=== PATIENT | male | born 1965 | race Caucasian/White ===

== ENCOUNTER 2019-08-13 14:19 | Outpatient (CLI) | payer BC, SELFPAY ==
--- NOTE | 2019-08-13 14:15 | DI.RAD_ITS ---
EXAM: XR KNEE RT 3V AP,LAT,DELMI CLINICAL HISTORY: assess knee joint, knee pain nina chronic, M25.569, G89.29, M25.561 TECHNIQUE: COMPARISON: No exams were available for comparison FINDINGS: Three views were obtained. There is slight narrowing of the medial tibiofemoral cartilaginous joint space. Mild hypertrophic spurring noted involving all 3 joints of the knee. 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
--- NOTE | 2019-08-13 14:19 | DI.RAD_ITS ---
EXAM: XR KNEE LT 3V AP,LAT,DELMI CLINICAL HISTORY: assess knee; joint pain chronic nina, M25.569, G89.29, M25.562 TECHNIQUE: COMPARISON: XR KNEE RT 3V AP,LAT,DELMI from 08/13/2019 FINDINGS: Three views were obtained. There may be slight narrowing of the medial tibiofemoral cartilaginous mina int space. Minimal marginal osteophyte formation noted at the inferior patella. No other bony abnor mality seen. IMPRESSION: Minimal degenerative changes as described above.
== END 2019-08-13 14:39 ==
PROVIDERS: PCP Nurse Practitioner Adult Health; Visit Provider Nurse Practitioner Adult Health
DX: M25.561 Pain in right knee (principal); M25.562 Pain in left knee; M17.0 Bilateral primary osteoarthritis of knee; G89.29 Other chronic pain
CPT/HCPCS: 73562

== ENCOUNTER 2019-09-13 13:42 | Outpatient (CLI) | payer BC, SELFPAY ==
--- NOTE | 2019-09-13 09:00 | DI.RAD_ITS ---
EXAM: XR KNEES MERCHANT ONLY INDICATION: eval R knee, patella maltracking. COMPARISON: XR KNEE LT 3V AP,LAT,DELMI from 08/13/2019 TECHNIQUE: 2D digital imaging was performed. FINDINGS: The joint spaces appear well maintained. There is a slight lateral tilt of the left patella. Soft t issues are unremarkable.
== END 2019-09-13 14:02 ==
PROVIDERS: PCP Nurse Practitioner Adult Health; Visit Provider Student in an Organized Health Care Education/Training Program
DX: M25.561 Pain in right knee (principal); M22.2X1 Patellofemoral disorders, right knee; M25.361 Other instability, right knee
CPT/HCPCS: 73565

== ENCOUNTER 2020-02-21 10:23 | Emergency (ER) | payer BC, SELFPAY ==
[2020-02-21] VITALS (39 sets, daily range): BP systolic 105–173; BP diastolic 64–98; PULSE 52–80; RESP 12–22; TEMP 36.8–37; O2SAT 95–98
--- NOTE | 2020-02-21 10:15 | RT.EKG_ITS ---
APPROVED REPORT Exam: Resting ECG Patient Location: E HR:65 bpm ECG Measurements Heart Rate 65 AXIS LA 151 P 33 QRSd 81 QRS -4 QT 397 T 40 QTc 414 <Conclusion> Sinus rhythm...normal P axis, V-rate 65, no st elev
--- NOTE | 2020-02-21 10:43 | ED.GENADUL_ITS ---
Discharge Plan Disposition Patient Disposition: HOME Condition: Improving Discharge Details Chief Complaint: Chest Pain Clinical Impression: Chest pain Primary Care Provider: Tammy Chery ED Provider: Barrera Medrano Home Meds and New Rx's Prescriptions: Continued albuterol sulfate [Ventolin HFA] 90 mcg/actuation HFA aerosol inhaler 2 puff IH Q4H PRN (Reason: shortness of breath or wheezing) Qty: 8.5 RF: 1 sertraline 50 mg tablet 50 mg PO DAILY Qty: 90 RF: 3 metoprolol succinate 100 MG tablet extended release 24 hr 100 mg PO DAILY Qty: 90 RF: 3 lisinopril 10 MG tablet 10 mg PO DAILY Qty: 30 RF: 1 aspirin,buffd-calcium carb-mag 325 MG tablet 1 tab PO DAILY RF: 0 nitroglycerin [Nitrostat] 0.4 MG tablet, sublingual 1 tab Sublingual DIRECTED PRNRF: 0 ezetimibe [Zetia] 10 MG tablet 10 mg PO DAILY RF: 0 rosuvastatin [Crestor] 40 MG tablet 40 mg PO HS Qty: 90 RF: 3 Discharge Instructions Instructions: Chest Pain (ED) Additional Instructions: Home to rest today. Continue your regularly prescribed medications. Return if you have persistent chest pain, chest pain that does not resolve with a single nitroglycerin, or any other acute concern. I have ordered you an outpatient stress test that will be scheduled. Stand Alone Forms: Work Release Medical Decision Making 54-year-old male with known coronary artery disease status post percutaneous intervention to the LAD in 2006. He was noted at that time to have residual distal LAD disease not amenable to intervention. He states over the weekend he developed short minutes long episodes of substernal chest pressure that were associated with diaphoresis. They were not provoked and he states they seem to dissipate on their own. States he feels general malaise and weakness but no other positives on review of systems. Most recent functional study is a negative exercise stress echo in November 2018. Patient IV access established, placed on a telesales specialist, screening laboratories including troponin and BNP obtained. Chest x-ray unremarkable. Labs reassuring, patient observed in a telesales specialist repeat troponin obtained at 4 hours and negative. He remained symptom-free throughout his stay in the ER today. Given the history of having residual distal LAD disease, I am concerned for flow-limiting coronary disease and will order an outpatient stress test. Patient understands homecare as well as indications to return for reevaluation. HPI General Mode of arrival: ambulatory . Date/Time Provider Initiated Documentation: 02/21/20 10:25 . Limitations to Documentation: no limitations . Information obtained by: patient . History of Present Illness 54 year old M presents to the emergency department with the chief complaint of Intermittent chest pressure x4 this weekend, described as moderate, Quality is described as dull, and is localized to the chest. Patient reports no radiation. Patient started experiencing this minute(s) and it has been now resolved. No relieving factors improve symptom(s), No exacerbating factors reported . Patient notes diaphoresis; denies shortness of breath and syncope. Patient did receive the following treatments prior to arrival, none Related Data Home Medications Medication Instructions Recorded Confirmed aspirin,buffd-calcium carb-mag 1 tab PO DAILY 08/29/15 11/24/19 ezetimibe [Zetia] 10 mg PO DAILY 08/29/15 11/24/19 nitroglycerin [Nitrostat] 1 tab SUBLINGUAL DIRECTED PRN 08/29/15 11/24/19 rosuvastatin [Crestor] 40 mg PO HS #90 08/29/15 11/24/19 metoprolol succinate 100 mg PO DAILY #90 tab-cap 10/02/16 11/24/19 lisinopril 10 mg PO DAILY #30 tab-cap 02/16/18 11/24/19 albuterol sulfate 90 mcg/actuation 2 puff IH Q4H PRN #8.5 gm 08/19/19 11/24/19 aerosol inhaler sertraline 50 mg tablet 50 mg PO DAILY #90 tab 11/24/19 11/24/19 Previous Rx's Medication Instructions Recorded lisinopril 10 mg PO DAILY #30 tab-cap 02/16/18 albuterol sulfate 90 mcg/actuation 2 puff IH Q4H PRN #8.5 gm 08/19/19 aerosol inhaler sertraline 50 mg tablet 50 mg PO DAILY #90 tab 11/24/19 Allergies Allergy/AdvReac Type Severity Reaction Status Date / Time clopidogrel bisulfate AdvReac Intermediate Hives Verified 08/19/19 11:09 [From Plavix] General Stated Complaint: Chest Pain WILL: 2 Review of Systems Narrative: Took his morning medications. Denies edema. No weight gain. No cough or fever. 6 systems reviewed and otherwise negative [facility] Medical History Adenomatous polyp of ascending colon (Chronic 12/16/16) sessile serrated CAD (coronary artery disease) (Chronic 09/27/16) Depression (Chronic) History of alcohol abuse (Chronic 09/27/16) History of tobacco abuse (Chronic 10/02/16) Hyperlipidemia, unspecified (Chronic 09/27/16) SC (myocardial infarction) (07/24/07) Age 41 PTSD (post-traumatic stress disorder) (Chronic) [email or web address] [facility] 01/2019 Sleeping difficulty (Acute) Snoring (Acute) Family History Mother Essential hypertension CAD (coronary artery disease) Myocardial infarction x2 Stroke Father , Colon CA at age 62. Diabetes Type II CAD (coronary artery disease) Neoplasm Colon Sister Stroke Sister MS (multiple sclerosis) Sister Essential hypertension Hyperlipidemia TIA (transient ischemic attack) Social History Smoking/Tobacco Use Status: Former Tobacco Use Quit Date: 07/28/06 Pack-years: 30 Tobacco: How many years used: 20 Quit status: not considering quitting Alcohol Intake: current Alcohol Intake frequency: a few times a week Drug use: Never Household members: none Housing: house Current gender identity: male Do you feel safe in your relationship?: Yes Exam Narrative Exam Narrative: GEN: awake, alert, oriented 3. Pleasant, well groomed, interactive. HEAD: Normocephalic, atraumatic ENT: Mucous membranes moist, oropharynx unremarkable, External ear exam unremarkable EYES: PERRL, EOMI NECK: Full ROM, no RANGEL, no menigismus CHEST/RESP: Nontender, clear to auscultation bilateral, no wheeze/rhonchi/rales CARDIOVASCULAR: RRR, no murmur, rub fadi. 2+ Rad pulse bilateral ABDOMEN: Soft, nontender, no mass. +Bowel sounds EXT: Full ROM, no edema, no rash Neuro: Grossly normal neurologic exam, conversant, interactive. Psych: Speech fluent, thoughts congruent, affect normal Course Vital Signs Vital signs: Vital Signs Temperature 37 C 02/21/20 10:27 Pulse 67 02/21/20 10:27 Respiratory Rate 13 02/21/20 10:27 Blood Pressure 173/98 H 02/21/20 10:27 Pulse Oximetry 98 02/21/20 10:27 Temperature 37 C 02/21/20 10:27 Temperature Source Temporal Artery Scan 02/21/20 10:27 Pulse 67 02/21/20 10:27 Respiratory Rate 13 02/21/20 10:27 Blood Pressure 173/98 H 02/21/20 10:27 Blood Pressure Position Supine 02/21/20 10:27 Pulse Oximetry 98 02/21/20 10:27 Oxygen Delivery Method Room Air 02/21/20 10:27 Oxygen Flow Rate 0 02/21/20 10:27
[2020-02-21 10:54] LABS: Abs Immature Grans 0.04 k/cumm (0.0-0.09); Absolute Lymphocyte Count 3.73 k/cumm (1.2-3.4); Absolute Monocyte Count 1.08 k/cumm (0.11-0.7); Basophils % 0.1; Eosinophils % 4.3; HCT 46.1 % (40.0-50.0); HGB 15.7 g/dL (13.5-17.5); Immature Grans % 0.3 %; Lymphocytes % 27.9; Mean Corp. HGB Concentration 34.1 g/dL (32.0-36.0); Mean Corpuscular Hemoglobin 30.8 pg (27.0-33.0); Mean Corpuscular Volume 90.4 fL (80-95); Mean Platelet Volume 10.2 fL (8.0-11.0); Monocytes % 8.1; Neutrophils % 59.3; Platelet Count 394 x1000/uL (130-400); RBC Distribution Width 13.6 % (11.8-14.1); White Blood Cell Count 13.37 k/cumm (4.4-10.8)
[2020-02-21 10:55] LABS: Absolute Basophil Count 0.01 k/cumm (0.0-0.2); Absolute Eosinophil Count 0.57 k/cumm (0.0-0.7); Absolute Neutrophil Count 7.93 k/cumm (1.2-6.7)
--- NOTE | 2020-02-21 11:06 | DI.RAD_ITS ---
EXAM: XR CHEST 2V PA LATERAL CLINICAL HISTORY: chest pressure TECHNIQUE: 2D digital imaging was performed. COMPARISON: No exams were available for comparison FINDINGS: MEDIASTINUM: Normal. HEART: Normal. PULMONARY VASCULATURE: Normal. LUNGS: Clear. PLEURAL SPACE: No pleural effusion or pneumothorax. BONE:Normal. OTHER FINDINGS:Normal. IMPRESSION: No acute pulmonary findings. DATA REPOSITORY: RADIATION DOSE DELIVERED:
[2020-02-21 11:17] LABS: ALT 46 U/L (16-63); AST 21 U/L (15-37); Albumin 3.9 g/dL (3.4-5.0); Alkaline Phosphatase 66 U/L (46-116); Anion Gap 10.7 mmol/L (3-11); BUN 20 mg/dL (7-18); Bilirubin, Total 0.6 mg/dL (0.2-1.0); CO2 26.3 mmol/L (21.0-32.0); CREATININE 1.11 mg/dL (0.70-1.30); Chloride 99 mmol/L (98-107); Glucose 117 mg/dL (74-106); Magnesium 1.9 mg/dL (1.8-2.4); NT-proBNP 186 pg/mL (<300); Potassium 4.1 mmol/L (3.5-5.1); Sodium 136 mmol/L (136-145); Total Protein 7.7 g/dL (6.4-8.2)
[2020-02-21 11:22] LABS: Troponin I < 0.05 ng/mL (<0.06)
--- NOTE | 2020-02-21 13:30 | RT.EKG_ITS ---
APPROVED REPORT Exam: Resting ECG Patient Location: E HR:57 bpm ECG Measurements Heart Rate 57 AXIS SC 148 P 33 QRSd 81 QRS 2 QT 423 T 43 QTc 412 <Conclusion> Sinus bradycardia. rate 57, no st elevation
[2020-02-21 14:08] LABS: Troponin I < 0.05 ng/mL (<0.06)
--- NOTE | 2020-02-21 14:38 | NUR.NOTE ---
Nursing Note: Referral fax to DI and CM for Stress Test
== END 2020-02-21 14:41 | disposition home or self-care (01) ==
PROVIDERS: Emergency Provider Emergency Medicine; PCP Nurse Practitioner Adult Health
DX: R07.89 Other chest pain (principal); R53.81 Other malaise; I25.10 Atherosclerotic heart disease of native coronary artery without angina pectoris; Z87.891 Personal history of nicotine dependence
CPT/HCPCS: 36415; 80053; 93005; 99285; 71046; 83735; 83880; 84484; 85025; 93010

== ENCOUNTER 2020-02-24 00:40 | Outpatient (CLI) | payer BC, SELFPAY ==
--- NOTE | 2020-02-24 06:30 | DI.NM_ITS ---
APPROVED REPORT Exam: Pharmacologic Patient Location: Out-Patient Room/Bed: Stress Nurse: Tram Corey RN BMI: 32.92 Baseline Rhythm: Sinus Rhythm Indications: Chest Pain, CAD s/p MT, CAD s/p PCI Medical History Medical History: CAD s/p MT, CAD s/p stent, HTN, Hyperlipidemia, Obesity Cardiac Medications: Aspirin, Lisinopril, Metoprolol, Rosuvastatin/ Crestor, zetia, Allergies: Plavix Cardiac Risk Factors: HTN, Hyperlipidemia, FHX of CAD, CVD Previous Cardiac Procedures: PCI Pretest Chest Pain Characteristics: No chest pain Exercise History: Indeterminate Lung Sounds: Clear to auscultation Heart Sounds: Regular Stress Test Details Test: Pharmacologic stress was paired with low level exercise. Reason for pharmacologic stress test: physical limitation. Nuclear Acquisition: Rest Tc-99m/Stress Tc-99m 1 day Rest Isotope: Tc-99m Sestamibi. Dose: 12 Date: 02/24/2020 Injection Time: 1200 Stress Isotope: Tc-99m Sestamibi. Dose: 38.6 Date: 02/24/2020 Injection Time: 1335 HR Resting HR Supine: 78 bpm Max Heart Rate (APMHR): 165 bpm Resting HR Standin bpm Target HR (85% APMHR): 140 bpm Max HR Achieved: 128 bpm % of APMHR: 77 Recovery HR: 109 bpm HR response to stress: Normal HR response to stress BP Resting BP Supine: 160/104 mmHg Resting BP Standin/104 mmHg Max BP: 178/11 mmHg Recovery BP: 146/100 mmHg BP response to stress: Abnormal hypotensive response to stress. ECG Resting ECG: Sinus Rhythm, Ectopy: pvc Stress ECG: Sinus Tachycardia Maximum ST Deviation: -1.7 mm Arrhythmia: VPC's Recovery ECG: Sinus Tachycardia Recovery Arrhythmia: None Clinical Reason for Termination: ECG unreadable Exercise duration: 1 min10 sec Highest Stage Reached: Stage 1: 1.7 mph at 10% grade. Exercise capacity: 2.74 METs Stress ECG Conclusion 1. Resting electrocardiogram was normal other than sinus tachycardia 2. The patient received pharmacologic stress using regadenoson 3. Peak heart rate achieved was 77% of predicted 4. Blunted heart rate and blood pressure response to pharmacologic stress 5. Electrocardiographically the test was nondiagnostic due to inadequate heart rate achieved Critical Notification Critical Value: No MPI Conclusion No definite evidence of myocardial ischemia or prior infarction Ejection fraction 68% Radiologist Interpretation limited technical quality scan, ischemia not excluded, possible transient anterior wall defect, small Radiologist Interpretation by: Barrera Rhodes MD Interpretation Date/Time: 02/28/2020 14:58:58
[2020-02-24] MEDS: Regadenoson 0.4 MG/5 ML SYR IVP (14:07)
== END 2020-02-24 01:00 ==
PROVIDERS: PCP Nurse Practitioner Adult Health; Visit Provider Nurse Practitioner Adult Health
DX: R07.9 Chest pain, unspecified (principal); I25.2 Old myocardial infarction; I25.10 Atherosclerotic heart disease of native coronary artery without angina pectoris; Z95.5 Presence of coronary angioplasty implant and graft; I10 Essential (primary) hypertension; E78.5 Hyperlipidemia, unspecified; E66.9 Obesity, unspecified; Z82.49 Family history of ischemic heart disease and other diseases of the circulatory system; R94.39 Abnormal result of other cardiovascular function study
CPT/HCPCS: 78452; 93017; J2785

== ENCOUNTER 2020-03-08 09:15 | Outpatient (REF) | payer BC, SELFPAY ==
[2020-03-08 20:56] LABS: Hemoglobin A1C 5.7 % (3.8-5.6)
[2020-03-08 21:15] LABS: ALT 36 U/L (16-63); AST 17 U/L (15-37); Albumin 3.8 g/dL (3.4-5.0); Alkaline Phosphatase 89 U/L (46-116); Anion Gap 12.4 mmol/L (3-11); BUN 26 mg/dL (7-18); Bilirubin, Total 0.2 mg/dL (0.2-1.0); CO2 21.6 mmol/L (21.0-32.0); CREATININE 1.09 mg/dL (0.70-1.30); Calcium 9.1 mg/dL (8.5-10.1); Calculated LDL 226 mg/dL (<100); Chloride 103 mmol/L (98-107); Cholesterol 314 mg/dL (<200); Glucose 121 mg/dL (74-106); HDL Cholesterol 37 mg/dL (40-60); Potassium 4.5 mmol/L (3.5-5.1); Sodium 137 mmol/L (136-145); Total Protein 7.2 g/dL (6.4-8.2); Triglyceride 259 mg/dL (<150); Vitamin B12 413 pg/mL (193-986)
== END 2020-03-08 09:35 ==
LOC: LBN 09:15
PROVIDERS: PCP Nurse Practitioner Adult Health; Visit Provider Nurse Practitioner Adult Health
DX: E78.5 Hyperlipidemia, unspecified (principal); F10.11 Alcohol abuse, in remission; I25.10 Atherosclerotic heart disease of native coronary artery without angina pectoris; R20.2 Paresthesia of skin; Z87.891 Personal history of nicotine dependence
CPT/HCPCS: 80053; 80061; 82607; 83036

== ENCOUNTER 2020-05-19 06:54 | Day surgery (SDC) | payer BC, SELFPAY ==
[2020-05-19 07:03] VITALS: BP 138/93; PULSE 79; RESP 16; TEMP 36; O2SAT 98
[2020-05-19] MEDS: Lactated Ringers 1,000 ML 80 ML IV (07:27)
--- NOTE | 2020-05-19 08:12 | W.PM.DSUDISC ---
Discharge Plan Disposition Patient Disposition: HOME Condition: Good Discharge Details Reason For Visit: Colonoscopy Attending Provider: Chelsi Lockhart Primary Care Provider: Tammy Chery Home Meds and New Rx's Prescriptions: Continued albuterol sulfate [Ventolin HFA] 90 mcg/actuation HFA aerosol inhaler 2 puff IH Q4H PRN (Reason: shortness of breath or wheezing) Qty: 8.5 RF: 1 sertraline 50 mg tablet 50 mg PO DAILY Qty: 90 RF: 3 metoprolol succinate 100 MG tablet extended release 24 hr 100 mg PO DAILY Qty: 90 RF: 3 lisinopril 10 MG tablet 10 mg PO DAILY Qty: 30 RF: 1 aspirin,buffd-calcium carb-mag 325 MG tablet 1 tab PO DAILY RF: 0 nitroglycerin [Nitrostat] 0.4 MG tablet, sublingual 1 tab Sublingual DIRECTED PRNRF: 0 ezetimibe [Zetia] 10 MG tablet 10 mg PO DAILY RF: 0 rosuvastatin [Crestor] 40 MG tablet 40 mg PO HS Qty: 90 RF: 3 Discharge Instructions Additional Instructions: Findings: A large polyp was removed from the right colon. My office will contact you with biopsy results. Follow up: Due to the size of the polyp, plan for a colonoscopy in 6 months. Please call if you develop: fevers >101.5 Nausea or Vomiting Abdominal pain that is not transient Bleeding DAY SURGERY UNIT POST COLONOSCOPY INSTRUCTIONS 1. Because there will be medication in your system for the next 24 hours, you may feel a little sleepy. Your coordination will be affected. Therefore: a. Do not drive or operate dangerous equipment for 24 hours. b. Do not drink alcohol beverages for 24 hours (not even beer). c. Plan to go home and rest for the day. 2. Generally there are no restrictions on your activity after a day or so has gone by, but you may feel a bit fatigued for a few days. 3 After you arrive home you may have a light meal and return to a normal diet as you can tolerate it without feeling sick to your stomach. 4. After surgery, you may feel pain or discomfort. This should be only transient, but if it persists please contact your doctor. 5. If there are any questions regarding the findings of your procedure, please feel free to contact your doctor. 6. If you are unable to contact your doctor with a problem, contact the hospital at [phone]. 9. Continue all your regular medications unless directed otherwise. I understand the above instructions and have no questions. Signature of Patient or Responsible Adult Escort Date/Time Name of Responsible Adult Escort Signature of Nurse Date/Time Activity:: Activity as Tolerated Diet:: As Tolerated Discharge Orders Discharge Orders: Discharge Order (Routine); Ordered 05/19/20 Ordered By: Chelsi Lockhart DS: Diagnosis Discharge Diagnosis (1) Colon polyps: Status: Acute (2) Diverticulosis: Status: Acute
--- NOTE | 2020-05-19 08:13 | W.COLOREPORT ---
Date of service: 05/19/20 Time of Service: 09:41 Colonoscopy Report Date of procedure: 05/19/20 Pre-op diagnosis general: History of polyps, FH colon cancer Post-op diagnosis procedure note: other (Cecal polyp, descending colon polyp, diverticulosis) Procedure: Colonoscopy with snare polypectomy Surgeon: Chelsi Lockhart Anesthesia proc note operative: MAC Indications: This 54 year old man presents for colonoscopy. He had a tubular adenoma removed in 2017. His father was treated for colon cancer. Procedure Description: The patient was placed in the left [place] position. Propofol was titrated to sedation. Digital rectal examination revealed no abnormalities. The scope was advanced to the cecum with some pressure required. The ileocecal valve and appendiceal orifice were clearly identified. The prep was good. Across from the ileocecal valve a large polyp was located behind a fold. This was difficult to reach due the colon falling off the scope. I was able to snare two large pieces and retrieved one for pathology. It is not clear the polyp was completely removed. The scope was slowly withdrawn over the course of greater than 6 minutes with no abnormalities seen in the ascending or transverse colon. A less than 1cm polyp was removed from the descending colon with the snare. The sigmoid colon showed mild diverticulosis. The rectum was normal including on retroflexed view. The patient tolerated the procedure well and was stable to recovery. He will need a colonoscopy in 6 months to re-evaluate the polyp in the cecal region.
--- NOTE | 2020-05-19 08:40 | BOWEL_PTH ---
PATIENT: Олег Garcia LOC: [facility] U#:[id number] AGE/SX: 54/M ROOM: RE05/19/[address]: Chelsi Lockhart MD : 1965 BED: DIS: 05/19/2020 SPEC #: [id number] RECD: 05/19/20 12:26 STATUS: NIKKIE REQ #: [id number] MISSAEL: 05/19/20 08:[address]: Chelsi Lockhart DEPT: Surgical Specimen RECD BY: Melissa Ye ENTERED: 05/19/20 12:27 SP TYPE: Bowel OTHR DR: Tammy Chery APRN Tissues: 1 - BIOPSY BOWEL 2 - BIOPSY BOWEL Procedures: GROSS AND MICRO LEVEL 4 Comments: [id number]
[2020-05-19 09:56] VITALS: BP 149/71; PULSE 60; RESP 18; TEMP 36.1; O2SAT 98
== END 2020-05-19 10:25 | disposition home or self-care (01) ==
PROVIDERS: PCP Nurse Practitioner Adult Health; Visit Provider Surgery
PROC: 0DJD8ZZ Inspection of Lower Intestinal Tract, Via Natural or Artificial Opening Endoscopic (ICD-10-PCS; CPT 45378; principal; 2020-05-19 08:15)
DX: Z12.11 Encounter for screening for malignant neoplasm of colon (principal); D12.0 Benign neoplasm of cecum; D12.4 Benign neoplasm of descending colon; Z86.010 Personal history of colon polyps; K57.30 Diverticulosis of large intestine without perforation or abscess without bleeding; Z80.0 Family history of malignant neoplasm of digestive organs
CPT/HCPCS: 45385; 88305

== ENCOUNTER 2020-06-26 02:32 | Outpatient (CLI) | payer BC, SELFPAY ==
[2020-06-27 16:50] LABS: COVID-19 RT-PCR UVMMC Result Negative (Negative)
== END 2020-06-26 02:52 ==
PROVIDERS: PCP Nurse Practitioner Adult Health; Visit Provider Nurse Practitioner
DX: Z11.59 Encounter for screening for other viral diseases (principal); Z01.818 Encounter for other preprocedural examination
CPT/HCPCS: U0003

== ENCOUNTER 2020-12-29 18:01 | Outpatient (REF) | payer BC, SELFPAY ==
[2020-12-31 11:21] LABS: COVID-19 RT-PCR UVMMC Result Negative (Negative)
== END 2020-12-29 18:02 | disposition home or self-care (01) ==
LOC: LBN 18:01
PROVIDERS: PCP Nurse Practitioner Adult Health; Visit Provider Nurse Practitioner Adult Health
DX: Z20.822 Contact with and (suspected) exposure to COVID-19 (principal); R06.02 Shortness of breath
CPT/HCPCS: U0003

== ENCOUNTER 2021-01-01 10:43 | Outpatient (CLI) | payer BC, SELFPAY ==
--- NOTE | 2021-01-01 10:00 | DI.RAD_ITS ---
Exam(s) XR CHEST 2V PA LATERAL EXAM: XR CHEST 2V PA LATERAL CLINICAL HISTORY: SOBOE, CAD, H/O TOBACCO USE, R06.02, I25.10, Z87.891 TECHNIQUE: 2D digital imaging was performed. COMPARISON: CR XR CHEST 2V PA LATERAL from 02/21/2020 FINDINGS: MEDIASTINUM: Normal. HEART: Normal. PULMONARY VASCULATURE: Normal. LUNGS: Clear. PLEURAL SPACE: No pleural effusion or pneumothorax. BONE:Within normal limits for the patient's age. OTHER FINDINGS:Normal. IMPRESSION: No acute pulmonary findings. DATA REPOSITORY: RADIATION DOSE DELIVERED:
== END 2021-01-01 11:03 ==
PROVIDERS: PCP Nurse Practitioner Adult Health; Visit Provider Nurse Practitioner Adult Health
DX: R06.02 Shortness of breath (principal); I25.10 Atherosclerotic heart disease of native coronary artery without angina pectoris; Z87.891 Personal history of nicotine dependence
CPT/HCPCS: 71046

== ENCOUNTER 2021-01-03 11:32 | Outpatient (CLI) | payer BC, SELFPAY ==
[2021-01-03 13:12] LABS: Abs Immature Grans 0.04 10^3/uL (0.0-0.06); Absolute Basophil Count 0.04 10^3/uL (0.0-0.2); Absolute Eosinophil Count 0.23 10^3/uL (0.0-0.7); Absolute Lymphocyte Count 2.67 10^3/uL (1.2-3.4); Absolute Monocyte Count 0.54 10^3/uL (0.1-0.8); Absolute Neutrophil Count 6.32 10^3/uL (1.2-6.7); Basophils % 0.4; Eosinophils % 2.3; HCT 45.3 % (40.0-50.0); HGB 15.3 g/dL (13.5-17.5); Immature Grans % 0.4; Lymphocytes % 27.1; MCH 30.8 pg (27.0-33.0); MCHC 33.8 % (32.0-36.0); MCV 91.1 fL (80-95); MPV 9.7 fL (8.0-11.0); Monocytes % 5.5; Neutrophils % 64.3; Nucleated RBC 0 %; Platelet Count 342 10^3/uL (130-400); RBC 4.97 10^6/uL (4.36-5.78); RDW 12.6 % (11.8-14.1); RDW-SD 42.1 fL; WBC 9.84 10^3/uL (4.4-10.8)
[2021-01-03 13:28] LABS: ALT 53 U/L (16-63); AST 17 U/L (15-37); Albumin 3.9 g/dL (3.4-5.0); Alkaline Phosphatase 79 U/L (46-116); Anion Gap 11.4 mmol/L (3-11); BUN 19 mg/dL (7-18); Bilirubin, Total 0.6 mg/dL (0.2-1.0); CO2 24.6 mmol/L (21.0-32.0); CREATININE 1.2 mg/dL (0.70-1.30); Calcium 8.8 mg/dL (8.5-10.1); Chloride 103 mmol/L (98-107); Glucose 102 mg/dL (74-106); Potassium 4.1 mmol/L (3.5-5.1); Sodium 139 mmol/L (136-145); Total Protein 7.6 g/dL (6.4-8.2)
[2021-01-03 14:08] LABS: D-Dimer 618 ng/mlFEU (<500)
== END 2021-01-03 11:33 | disposition home or self-care (01) ==
LOC: LBO 11:33
PROVIDERS: PCP Nurse Practitioner Adult Health; Visit Provider Surgery
DX: R06.02 Shortness of breath (principal)
CPT/HCPCS: 36415; 80053; 85025; 85379

== ENCOUNTER 2021-01-03 14:37 | Outpatient (CLI) | payer BC, SELFPAY ==
--- NOTE | 2021-01-03 14:30 | RT.EKG_ITS ---
APPROVED REPORT Exam: Resting ECG Reason for Exam: Shortness of breath on exertion Patient Location: O HR:97 bpm ECG Measurements Heart Rate 97 AXIS OK 148 P 42 QRSd 80 QRS -8 QT 337 T 52 QTc 428 Conclusion Sinus rhythm...normal P axis, V-rate 60- 99 Ventricular premature complex...V complex w/ short R-R interval Probable left atrial enlargement...P >50mS, <-0.10mV V1
== END 2021-01-03 14:38 | disposition home or self-care (01) ==
PROVIDERS: PCP Nurse Practitioner Adult Health; Visit Provider Nurse Practitioner Adult Health
DX: R06.02 Shortness of breath (principal); I49.3 Ventricular premature depolarization
CPT/HCPCS: 93010

== ENCOUNTER 2021-01-03 15:30 | Emergency (ER) | payer BC, SELFPAY ==
[2021-01-03] VITALS (44 sets, daily range): BP systolic 112–145; BP diastolic 65–102; PULSE 72–110; RESP 8–25; TEMP 36.7; O2SAT 94–98
--- NOTE | 2021-01-03 15:30 | RT.EKG_ITS ---
APPROVED REPORT Exam: Resting ECG Reason for Exam: sob Patient Location: E HR:103 bpm ECG Measurements Heart Rate 103 AXIS NJ 153 P 23 QRSd 75 QRS -9 QT 332 T 36 QTc 436 Conclusion Sinus tachycardia...rate> 99
--- NOTE | 2021-01-03 15:30 | DI.CT_ITS ---
Exam(s) CT CHEST PE CTA EXAM: CT CHEST PE CTA CLINICAL HISTORY: SOB, Elevated Ddimer, R/O PE. TECHNIQUE: Imaging Protocol: Axial CT angiography was performed with multi-slice acquisition and mu lti-planar and/or 3D reconstructions. CONTRAST MATERIAL: Intravenous: Omnipaque 350 Contrast volume:100 COMPARISON: No exams were available for comparison FINDINGS: Exam is somewhat limited by patient motion, particularly at the lung bases.. Pulmonary Arteries: No evidence of filling defects to suggest pulmonary emboli. Tracheobronchial tree: Patent where visualized. Mediastinum and Yara: No dominant adenopathy or fluid collection. Pulmonary parenchyma: No consolidation or dominant measurable mass. No architectural distortion. Pleura: No effusion or pneumothorax. Heart: The heart is mildly dilated. Aortic valve annular calcification is present. Moderate coronar y artery calcifications are present. Aorta: Ascending aorta 3.7 cm. Atherosclerotic changes, mild. No dissection. Upper abdomen: Unremarkable. Bones: Normal. IMPRESSION: No evidence of pulmonary embolism or other acute abnormality. Coronary artery calcifications and aor tic calcifications.. RADIATION DOSE DELIVERED: 492.85mGy.cm Total DLP DATA REPOSITORY: All CT scans at this facility are submitted to the National Radiology Data Registry (NRDR) Dose Index Registry (DIR) with the [employer] (A[employer]). RADIATION OPTIMIZATION: All CT scans at this facility use at least one of these dose optimization te chniques: automated exposure control; mA and/or kV adjustment per patient size (includes targeted exa ms where dose is matched to clinical indication); or iterative reconstruction.
--- NOTE | 2021-01-03 16:12 | W.ED.GENAD ---
Discharge Plan Disposition Patient Disposition: HOME Condition: Stable Discharge Details Clinical Impression: CUNHA (dyspnea on exertion) Primary Care Provider: Tammy Chery ED Provider: Wayne Harrington Home Meds and New Rx's Prescriptions: Continued sertraline 50 mg tablet 50 mg PO DAILY Qty: 90 RF: 3 nitroglycerin [Nitrostat] 0.4 mg tablet, sublingual 0.4 mg Sublingual DIRECTED PRN (Reason: chest pain) Qty: 100 RF: 2 albuterol sulfate [Ventolin HFA] 90 mcg/actuation HFA aerosol inhaler 2 puff IH Q4H PRN (Reason: shortness of breath or wheezing) Qty: 8.5 RF: 1 lisinopril 5 mg tablet 5 mg PO DAILY Qty: 30 RF: 0 metoprolol succinate 100 MG tablet extended release 24 hr 100 mg PO DAILY Qty: 90 RF: 3 aspirin,buffd-calcium carb-mag 325 MG tablet 1 tab PO DAILY RF: 0 ezetimibe [Zetia] 10 MG tablet 10 mg PO DAILY RF: 0 rosuvastatin [Crestor] 40 MG tablet 40 mg PO HS Qty: 90 RF: 3 Discharge Instructions Instructions: Dyspnea (ED) Medical Decision Making <DANITA Reese - Last Filed: 01/03/21 20:58> 55-year-old male with past medical history of CAD, NM, hypertension, former smoker and alcohol use, PTSD, presenting to the ER for dyspnea with exertion intermittent since July. Being worked up by his primary care team, recent elevated D-dimer, sent to the ER for further evaluation. We will not repeat his other laboratory values but instead will obtain a CTA of his chest for further evaluation as well as a troponin now and EKG, magnesium and repeat troponin and EKG at the 3-hour markos. Patient is having no chest pain currently, will not initiate aspirin therapy. Laboratory values here in the ER revealed a magnesium of 2.1, troponin less than 0.05. I did review the labs that were drawn earlier in the day as well. Upon reevaluation patient appears well, nontoxic, speaking in full sentences, no igor distress. Blood pressure is trending down nicely, pulse is also trending downwards, now in the 80s. His O2 sat remains in the mid to high 90s on room air. Awaiting CT results CT resulted and is negative, please see official report. Discussed findings with patient. He is agreeable to awaiting repeat troponin and EKG at the 3-hour markos. Repeat EKG performed at 1853, please see official report by Dr. Stokes. Sinus rhythm, ventricular rate of 81. No STEMI. No dynamic changes when compared to initial EKG Repeat troponin remains less than 0.05. Discussed work-up with patient once again. He appears well, nontoxic and is currently asymptomatic. We discussed the importance of outpatient follow-up through his primary care provider. They may want to expedite a stress test, a Holter monitor for his tachycardia it may be indicated as well. Referral to pulmonology may also be beneficial. He was encouraged to return to the ER for new or worsening symptoms. Patient has no additional questions or concerns and is comfortable discharge at this time. Medical Records Medical records reviewed: Yes I reviewed the patient's medical records. Imaging Data Radiologic Study: Attestation: I personally reviewed and interpreted this imaging study as follows: Imaging: CT Scan Radiologist's impression: CTA of chest read by radiology as no definitive pulmonary embolism within the limits of this examination. No other acute thoracic pathology is otherwise appreciated. Lab Data Lab results reviewed: Yes I reviewed the patient's lab results. Labs: Laboratory Tests Range/Units 01/03/21 01/03/21 15:50 18:55 Magnesium (1.8-2.4) mg/dL 2.1 Troponin I (<0.06) ng/mL < 0.05 < 0.05 NT-Pro-B Natriuret Pep (<300) pg/mL 82 ECG Data Attestation: I personally reviewed and interpreted this ECG (s) as follows: Interpretation: Sinus tachycardia, ventricular of 103. No STEMI. Please see official report by Dr. Stokes <Олег Stokes MD - Last Filed: 01/03/21 16:26> I had a [id number] encounter with the patient. I evaluated the patient. I discussed case with [employer] SALESPERSON/PA and I reviewed [employer] CY[employer] SALESPERSON/PA note and agree with note as documented. HPI <DANITA Reese - Last Filed: 01/03/21 20:58> General Mode of arrival: ambulatory. Date/Time Provider Initiated Documentation: 01/03/21 15:33. Limitations to Documentation: no limitations. Information obtained by: patient. HPI Narrative: This is a 55-year-old gentleman with a past medical history of CAD, NM, followed by cardiology, hypertension, former smoker and EtOH use, PTSD, presenting to the ER for dyspnea with exertion intermittently since July, worse over the past couple of weeks. He is currently being evaluated by his primary care provider and the plan was to obtain a Covid swab, chest x-ray, normal stress test back in 2019 but given concern of cardiac issues potential need for repeat outpatient stress test, currently using an albuterol inhaler. Patient had outpatient laboratory values and his D-dimer was found to be elevated, sent to the ER for further evaluation. Patient denies any fever, headache, chest pain, cough, pain or swelling in his extremities. He does report intermittent chest pressure with his exertional shortness of breath. Related Data Home Medications Medication Instructions Recorded Confirmed aspirin,buffd-calcium carb-mag 1 tab PO DAILY 08/29/15 01/03/21 ezetimibe [Zetia] 10 mg PO DAILY 08/29/15 01/03/21 rosuvastatin [Crestor] 40 mg PO HS #90 08/29/15 01/03/21 metoprolol succinate 100 mg PO DAILY #90 tab-cap 10/02/16 01/03/21 nitroglycerin 0.4 mg sublingual 0.4 mg SUBLINGUAL DIRECTED PRN 07/10/20 01/03/21 tablet #100 tab sertraline 50 mg tablet 50 mg PO DAILY #90 tab 07/10/20 01/03/21 albuterol sulfate 90 mcg/actuation 2 puff IH Q4H PRN #8.5 gm 08/28/20 01/03/21 aerosol inhaler lisinopril 5 mg tablet 5 mg PO DAILY #30 tab 12/29/20 01/03/21 Previous Rx's Medication Instructions Recorded nitroglycerin 0.4 mg sublingual 0.4 mg SUBLINGUAL DIRECTED PRN 07/10/20 tablet #100 tab sertraline 50 mg tablet 50 mg PO DAILY #90 tab 07/10/20 albuterol sulfate 90 mcg/actuation 2 puff IH Q4H PRN #8.5 gm 08/28/20 aerosol inhaler lisinopril 5 mg tablet 5 mg PO DAILY #30 tab 12/29/20 Allergies Allergy/AdvReac Type Severity Reaction Status Date / Time clopidogrel bisulfate Allergy Intermediate Hives Verified 01/03/21 15:40 [From Plavix] General Stated Complaint: SOB WILL: 2 Review of Systems <DANITA Reese - Last Filed: 01/03/21 20:58> Constitutional Constitutional: Denies fatigue, Denies fever(s) and Denies headache(s) ENT Ears, Nose, Mouth, and Throat: Denies headache(s) and Denies neck pain Cardiovascular Cardiovascular: Reports chest pain (Pressure) and Reports dyspnea Respiratory Respiratory: Denies cough and Reports dyspnea Gastrointestinal Gastrointestinal: Denies abdominal pain, Denies nausea and Denies vomiting Musculoskeletal Musculoskeletal: Denies back pain and Denies neck pain Integumentary/Breasts Skin/Breast: Denies rash Neurologic Neurologic: Denies headache(s) Endocrine Endocrine: Denies fatigue PFSH <DANITA Reese - Last Filed: 01/03/21 20:58> Medical History Adenomatous polyp of ascending colon (12/16/16) sessile serrated CAD (coronary artery disease) (09/27/16) [facility] Chondromalacia patellae, right knee Depression PTSD; sees counselor in [place] [facility] Sertraline Essential (primary) hypertension Hand paresthesia History of alcohol abuse (09/27/16) History of tobacco abuse (10/02/16) Hyperlipidemia, unspecified (09/27/16) Impaired fasting glucose 5.7% 03/10/2020 NM (myocardial infarction) (07/24/07) Age 41 Patellar maltracking Periodontal disease Needs teeth extractions; underinsured; referred to [facility] 03/08/2020 PTSD (post-traumatic stress disorder) Clinical Physician Assistant [facility] 01/2019 Surgical History Cardiac Catheterization and Placement of Coronary Artery Stents (07/24/07) x2 placed 2006 Last seen in cardiology 03/2020 Colonoscopy - IV Sedation (12/13/16) Family History Mother Essential hypertension CAD (coronary artery disease) Myocardial infarction x2 Stroke Father , Colon CA at age 62. Diabetes Type II CAD (coronary artery disease) Neoplasm Colon Sister Stroke Sister MS (multiple sclerosis) Sister Essential hypertension Hyperlipidemia TIA (transient ischemic attack) Social History Smoking/Tobacco Use Status: Current every day Tobacco Type: smokeless tobacco Tobacco: How many years used: 20 Quit status: not considering quitting Smoking risk assessment performed?: Yes Alcohol Intake: current Alcohol Intake frequency: a few times a week Alcohol type: beer Drug use: Never Substance use type: does not use Household members: none Housing: house Communication Needs: None Current gender identity: male What is your relationship status?: Panel score (0-1 are the most socially isolated patients): 0 What type of physical activity do you participate in: walking Duration: 30-45 minutes/day Drive intox or ride w/intox 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 haul or farm 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 bus driver: No Working smoke detector in home: Yes Fire extinguisher in home: Yes Carbon monox detector in home: Yes Do you feel safe at home: Yes Do you feel safe in your relationship?: Yes Exam <DANITA Reese - Last Filed: 01/03/21 20:58> Const General: cooperative, healthy appearing, comfortable and no acute distress Orientation: alert, awake and oriented x3 HENMT Head: normal to inspection, normocephalic and atraumatic Face and sinus: normal facial exam Mouth: moist mucous membranes Eyes General: appearance normal, both eyes and all related structures Conjunctivae: conjunctivae normal Neck Neck: normal visual inspection, full ROM, trachea midline and supple Resp Effort & Inspection: normal respiratory effort and able to speak in complete sentences Auscultation: clear to auscultation bilaterally Cardio Rate: tachycardic (104) Rhythm: regular rhythm GI Inspection: obesity Palpation: soft and nontender Back/Spine/Pelvis Back: No back tenderness Skin General skin exam: no rashes or lesions noted Neuro General: patient alert, patient awake, moves all extremities and no focal motor deficits Cognition: normal cognition Speech: speech normal Gait: normal gait Sensory Exam: no sensory deficits noted Extrem General: normal to inspection, full ROM, capillary refill normal, no pedal edema and no calf tenderness Psych Appearance: grossly normal Mental Status: mental status grossly normal Course <DANITA Reese - Last Filed: 01/03/21 20:58> Vital Signs Vital signs: Vital Signs Temperature 36.7 C 01/03/21 15:37 Pulse 105 H 01/03/21 15:37 Respiratory Rate 22 01/03/21 15:37 Blood Pressure 145/102 H 01/03/21 15:37 Pulse Oximetry 98 01/03/21 15:37 Temperature 36.7 C 01/03/21 15:37 Temperature Source Skin 01/03/21 15:37 Pulse 104 H 01/03/21 15:45 Pulse 103 H 01/03/21 15:50 Respiratory Rate 16 01/03/21 15:56 Respiratory Effort 01/03/21 15:56 Respiratory Depth Normal 01/03/21 15:56 Respiratory Pattern Normal 01/03/21 15:56 Blood Pressure 135/98 H 01/03/21 15:45 Blood Pressure Position Supine 01/03/21 15:37 Pulse Oximetry 98 01/03/21 15:50 Oxygen Delivery Method Room Air 01/03/21 15:45 Oxygen Flow Rate 0 01/03/21 15:45 Pain Level 0 01/03/21 15:37
[2021-01-03 16:16] LABS: Magnesium 2.1 mg/dL (1.8-2.4); NT-proBNP 82 pg/mL (<300)
[2021-01-03 16:24] LABS: Troponin I < 0.05 ng/mL (<0.06)
[2021-01-03] MEDS: Omnipaque 350 MG/ML 100 ML BTL IJ (16:53)
[2021-01-03] MEDS: Normal Saline Flush 10 ML SYR IVP (16:57)
--- NOTE | 2021-01-03 17:31 | DI.VRAD_ITS ---
PROCEDURE INFORMATION: Exam: CTA Chest With Contrast Exam date and time: 01/03/2021 3:46 PM Age: 55 years old Clinical indication: Shortness of breath; Prior surgery; Surgery date: 6+ months; Surgery type: SOB elevated ddimer R/O pe TECHNIQUE: Imaging protocol: Computed tomographic angiography of the chest with contrast. 3D rendering (Not supervised by radiologist): MIP and/or 3D reconstructed images were created by the technologist. Contrast material: OMNIPAQUE 350; Contrast volume: 100 ml; Contrast route: INTRAVENOUS (IV); COMPARISON: CR XR CHEST 2V PA LATERAL 01/01/2021 10:33 AM FINDINGS: Limitations: Study is partially limited by respiratory motion. Pulmonary arteries: No definitive pulmonary emboli are noted within the main pulmonary arteries or proximal through mid segmental branches. Distal lower lobe segmental branches are difficult to evaluate due to respiratory motion. Aorta: There is ectasia of the mid ascending thoracic aorta measuring 3.7 cm. The aorta demonstrates mild atherosclerotic calcification. No acute aortic pathology. Lungs: There is subpleural atelectasis of the dependent portions of the lungs. No acute interstitial or airspace disease. The airways are patent. Pleural spaces: Unremarkable. No pneumothorax. No pleural effusion. Heart: The heart is mildly enlarged. There is calcification of the aortic valve annulus. There is mild atherosclerotic calcification of the coronary arteries. No pericardial thickening or effusion. Lymph nodes: Unremarkable. No enlarged lymph nodes. Bones/joints: No acute skeletal abnormality or aggressive osseous lesion. Soft tissues: Unremarkable. Other findings: The visualized intra-abdominal structures demonstrate no acute findings. IMPRESSION: 1. No definitive pulmonary emboli, within the limits of this examination as detailed above. 2. No other acute thoracic pathology is otherwise appreciated. 3. Incidental findings as detailed above. Dictated and Authenticated by: Johnson Espinosa MD. Ordering:TOR Anderson MD
--- NOTE | 2021-01-03 18:15 | RT.EKG_ITS ---
APPROVED REPORT Exam: Resting ECG Reason for Exam: Taken todaysob Patient Location: E HR:81 bpm ECG Measurements Heart Rate 81 AXIS NE 158 P 28 QRSd 74 QRS -2 QT 367 T 49 QTc 427 Conclusion Sinus rhythm...normal P axis, V-rate 60- 99
[2021-01-03 19:36] LABS: Troponin I < 0.05 ng/mL (<0.06)
== END 2021-01-03 19:56 | disposition home or self-care (01) ==
PROVIDERS: Registered Nurse Emergency; Emergency Provider Physician Assistant; PCP Nurse Practitioner Adult Health
DX: R06.09 Other forms of dyspnea (principal)
CPT/HCPCS: 36415; 71275; 93005; 99285; 83735; 83880; 84484; 93010; 99284; J3490

== ENCOUNTER 2021-03-07 14:15 | Inpatient (IN) | payer BC, SELFPAY ==
[2021-03-07] VITALS (59 sets, daily range): BP systolic 108–170; BP diastolic 49–106; PULSE 61–112; RESP 9–32; TEMP 36–36.6; O2SAT 92–99
--- NOTE | 2021-03-07 14:15 | RT.EKG_ITS ---
APPROVED REPORT Exam: Resting ECG Reason for Exam: chest pressure Patient Location: E HR:112 bpm ECG Measurements Heart Rate 112 AXIS NE 145 P 56 QRSd 75 QRS -20 QT 327 T 62 QTc 447 Conclusion Sinus tachycardia...rate> 99 Probable left atrial enlargement...P >50mS, <-0.10mV V1 Physician: no stemi, no significant abnormalities
[2021-03-07] MEDS: Normal Saline 1,000 ML 30 ML IV (14:40)
[2021-03-07] MEDS: Aspirin 81 MG CHEW 324 MG CH (14:44)
[2021-03-07] MEDS: nitroGLYcerin 0.4 MG TAB SL ×2 (14:44→23:55)
[2021-03-07 14:51] LABS: Abs Immature Grans 0.06 10^3/uL (0.0-0.06); Absolute Basophil Count 0.04 10^3/uL (0.0-0.2); Absolute Eosinophil Count 0.29 10^3/uL (0.0-0.7); Absolute Lymphocyte Count 3.61 10^3/uL (1.2-3.4); Absolute Monocyte Count 1.13 10^3/uL (0.1-0.8); Absolute Neutrophil Count 9.21 10^3/uL (1.2-6.7); Basophils % 0.3; HCT 46.5 % (40.0-50.0); HGB 15.7 g/dL (13.5-17.5); Immature Grans % 0.4; Lymphocytes % 25.2; MCH 30.8 pg (27.0-33.0); MCHC 33.8 % (32.0-36.0); MCV 91.2 fL (80-95); MPV 10.5 fL (8.0-11.0); Monocytes % 7.9; Neutrophils % 64.2; Nucleated RBC 0 %; Platelet Count 308 10^3/uL (130-400); RDW 12.4 % (11.8-14.1); RDW-SD 41.1 fL; WBC 14.34 10^3/uL (4.4-10.8)
[2021-03-07 15:04] LABS: PTT Activated 25.4 sec (21.0-27.5); Prothrombin Time 9.9 sec (9.3-11.0)
[2021-03-07 15:14] LABS: ALT 38 U/L (16-63); AST 15 U/L (15-37); Albumin 3.7 g/dL (3.4-5.0); Alkaline Phosphatase 79 U/L (46-116); Anion Gap 6.7 mmol/L (3-11); BUN 20 mg/dL (7-18); Bilirubin, Total 0.4 mg/dL (0.2-1.0); CO2 27.3 mmol/L (21.0-32.0); Chloride 101 mmol/L (98-107); Glucose 134 mg/dL (74-106); NT-proBNP 55 pg/mL (<300); Potassium 3.5 mmol/L (3.5-5.1); Sodium 135 mmol/L (136-145); Total Protein 7.7 g/dL (6.4-8.2)
--- NOTE | 2021-03-07 15:20 | DI.RAD_ITS ---
Exam(s) XR PORTABLE CHEST AP EXAM: XR PORTABLE CHEST AP CLINICAL HISTORY: cp sob TECHNIQUE: 2D digital imaging was performed. COMPARISON: CR XR CHEST 2V PA LATERAL from 01/01/[address] CHEST PE CTA from 01/03/[address] CHEST PE CTA from 01/03/2021 FINDINGS: LUNGS: Clear. No pleural abnormality seen. HEART: Mildly enlarged, unchanged.. MEDIASTINUM: Normal. BONES: Unremarkable. IMPRESSION: No acute pulmonary findings. DATA REPOSITORY: RADIATION DOSE DELIVERED:
[2021-03-07 15:27] LABS: Troponin I < 0.05 ng/mL (<0.06)
--- NOTE | 2021-03-07 15:42 | ED.GENADUL_ITS ---
Discharge Plan Disposition Patient Disposition: [facility] Condition: Fair Discharge Details Clinical Impression: Chest pain, Acute left lower quadrant pain Admit Date/Time: 03/07/21 18:10 Admit Provider: Олег Knutson Attending Provider: Олег Knutson Primary Care Provider: aTmmy Chery ED Provider: Kenia Jolley Discharge Data Discharge Date/Time-TO BE ENTERED AT DEPARTURE: 03/07/21 18:53 Medical Decision Making <Hadley Vegas DO - Last Filed: 03/07/21 15:58> This is a 55-year-old male with a past medical history of hypertension, tobacco abuse, high cholesterol, coronary artery disease, who just had a cardiac stress test on Friday, and it was noted to be positive per department. Scheduled him for outpatient follow-up with his PCP, and unfortunately today while he was sitting watching TV he went and got up to go to the bathroom when he noted left-sided chest pain which went to his left scapula. It is been present for the last 3 hours. It got better with rest. He then came to the ER for further assessment. He denies any tearing or ripping sensation. He denies any vomiting or diarrhea. He denies any pain in his arm or neck. He did have the stress test because he states for the last year he has been short of breath and fatigue in general. Patient states that this does not feel exactly like his last heart attack. He denies any other complaints at this time. No other modifying factors. Physical exam demonstrates no reproducible chest pain in the chest, no decreased breath sounds. Pulses equal throughout. Patient does have a typically some mild reproducible left lower quadrant abdominal tenderness. Uncertain as to what the etiology is in regards to this. Cardiac etiology is certainly highest on concern. We did give the patient a nitroglycerin upon arrival and it brought his pain from a 7 to a 2. He feels much better. He was given full dose aspirin. EKG shows no evidence of STEMI. We will get CT imaging for further assessment of his abdominal and chest pain, will monitor closely and reassess. Case will be signed out to my colleague Kenia Quiroz for reassessment after labs and imaging is returned. <DANITA Edge - Last Filed: 03/08/21 23:42> Care transition myself and Dr. Vegas. Please see his initial note regarding history, presentation and exam. In brief, patient is a pleasant 55-year-old gentleman presenting today with chief complaint of chest pain. Chest pain has been exertionally days and relieved with rest. Patient reported to have had an abnormal stress test at [facility] recently. Will obtain these records. The time I assumed care, CT for PE protocol as well as abdomen for evaluation of left lower quadrant pain was pending. Labs reviewed. Significant for leukocytosis a white count of 14.3. H&H is stable. Coags are normal. CMP without significant abnormalities. Initial troponin within normal limits. BNP within normal limits. CT reviewed by radiologist: FINDINGS: Pulmonary arteries: No main, lobar or segmental pulmonary arterial embolism. Aorta: Unremarkable. No aortic aneurysm. No aortic dissection. Lungs: Unremarkable. No consolidation. No masses. Pleural spaces: Unremarkable. No pneumothorax. No pleural effusion. Heart: Unremarkable. No cardiomegaly. No pericardial effusion. Lymph nodes: Unremarkable. No enlarged lymph nodes. Bones/joints: Unremarkable. No acute fracture. Soft tissues: Unremarkable. IMPRESSION: 1. No pulmonary arterial embolism. 2. No aortic aneurysm or dissection. FINDINGS: Aorta: No aortic aneurysm. No aortic dissection. Celiac trunk and mesenteric arteries: No occlusion or significant stenosis. Renal arteries: No occlusion or significant stenosis. Liver: Normal. No mass. Gallbladder and bile ducts: Normal. No calcified stones. No ductal dilation. Pancreas: Normal. No ductal dilation. Spleen: Normal. No splenomegaly. Adrenals: Normal. No mass. Kidneys and ureters: There is a simple-appearing cyst in the right kidney. No follow-up necessary. There is a simple-appearing cyst in the left kidney. No follow-up necessary. Stomach and bowel: There are sigmoid/descending colonic diverticuli. Lymph nodes: Unremarkable. No enlarged lymph nodes. Intraperitoneal space: Unremarkable. No free air. No significant fluid collection. Bones/joints: Unremarkable. No acute fracture. No dislocation. Soft tissues: Unremarkable. IMPRESSION: 1. No aortic aneurysm or dissection. 2. Sigmoid/descending colonic diverticulosis. Discussed findings with chloe. He reports pain is minimal unless he begins to move. Minimal movements cause increased discomfort. Reviewed recent stress test from [facility] dated 03/02/2021. Patient had stress-induced ischemia in the proximal to distal anterior wall extending into the lateral apex. This is not evident on last year's study. Left ventricle function is normal. Coronary artery and aortic calcification. Aortic annular calcifications. EF 53%. Contacted [facility], they are full and unable to accept. Will contact [facility]. They are looking at 24-48hr for transfer. Consulted with Dr. Amaro at [facility]. He advised that patient would be able to go tomorrow. REcommended isosorbide and beginning to heparinize the patient. Advised minimal exertion. Advised he would go to [place] [id number] as urgent transfer tomorrow. Consulted with our hospitalist, Dr. Barr, regarding admission for unstable angina. He agrees to admission with plan to go to [facility] tomorrow. Jess is in agreement with this plan. HPI <Hadley Vegas DO - Last Filed: 03/07/21 15:58> General Date/Time Provider Initiated Documentation: 03/07/21 14:34 . HPI Narrative: Jose naqvi is a 55-year-old male with a past medical history of hypertension, tobacco abuse, high cholesterol, coronary artery disease, who just had a cardiac stress test on Friday, and it was noted to be positive per department. Scheduled him for outpatient follow-up with his PCP, and unfortunately today while he was sitting watching TV he went and got up to go to the bathroom when he noted left-sided chest pain which went to his left scapula. It is been present for the last 3 hours. It got better with rest. He then came to the ER for further assessment. He denies any tearing or ripping sensation. He denies any vomiting or diarrhea. He denies any pain in his arm or neck. He did have the stress test because he states for the last year he has been short of breath and fatigue in general. Patient states that this does not feel exactly like his last heart attack. He denies any other complaints at this time. No other modifying factors. Related Data Home Medications Medication Instructions Recorded Confirmed aspirin,buffd-calcium carb-mag 1 tab PO DAILY 08/29/15 03/07/21 ezetimibe [Zetia] 10 mg PO DAILY 08/29/15 03/07/21 rosuvastatin [Crestor] 40 mg PO HS #90 08/29/15 03/07/21 nitroglycerin 0.4 mg sublingual 0.4 mg SUBLINGUAL DIRECTED PRN 07/10/20 03/07/21 tablet #100 tab sertraline 50 mg tablet 50 mg PO DAILY #90 tab 07/10/20 03/07/21 albuterol sulfate 90 mcg/actuation 2 puff IH Q4H PRN #8.5 gm 08/28/20 03/07/21 aerosol inhaler lisinopril 10 mg tablet 10 mg PO .daily in AM #90 tab 01/19/21 03/07/21 metoprolol succinate 100 mg 100 mg PO HS #90 tab-cap 01/19/21 03/07/21 tablet,extended release 24 hr Previous Rx's Medication Instructions Recorded nitroglycerin 0.4 mg sublingual 0.4 mg SUBLINGUAL DIRECTED PRN 07/10/20 tablet #100 tab sertraline 50 mg tablet 50 mg PO DAILY #90 tab 07/10/20 albuterol sulfate 90 mcg/actuation 2 puff IH Q4H PRN #8.5 gm 08/28/20 aerosol inhaler lisinopril 10 mg tablet 10 mg PO .daily in AM #90 tab 01/19/21 Allergies Allergy/AdvReac Type Severity Reaction Status Date / Time clopidogrel bisulfate Allergy Intermediate Hives Verified 03/07/21 14:22 [From Plavix] General Stated Complaint: Chest Pain WILL: 2 Review of Systems <Hadley Vegas DO - Last Filed: 03/07/21 15:58> All systems reviewed & are unremarkable except as noted in HPI and below PFSH <Hadley Vegas DO - Last Filed: 03/07/21 15:58> Medical History Adenomatous polyp of ascending colon (12/16/16) sessile serrated CAD (coronary artery disease) (09/27/16) [facility] Cardiology Chondromalacia patellae, right knee Depression PTSD; sees counselor in [place] [facility] Sertraline Essential (primary) hypertension Hand paresthesia History of alcohol abuse (09/27/16) History of tobacco abuse (10/02/16) Hyperlipidemia, unspecified (09/27/16) Impaired fasting glucose 5.7% 03/10/2020 [place] (myocardial infarction) (07/24/07) Age 41 Patellar maltracking Periodontal disease Needs teeth extractions; underinsured; referred to [facility] 03/08/2020 Positive cardiac stress test PTSD (post-traumatic stress disorder) [facility] History Cardiac Catheterization and Placement of Coronary Artery Stents (07/24/07) x2 placed 2006 Last seen in cardiology 03/2020 Colonoscopy - IV Sedation (12/13/16) Family History Mother Essential hypertension CAD (coronary artery disease) Myocardial infarction x2 Stroke Father , Colon CA at age 62. Diabetes Type II CAD (coronary artery disease) Neoplasm Colon Sister Stroke Sister MS (multiple sclerosis) Sister Essential hypertension Hyperlipidemia TIA (transient ischemic attack) Social History Smoking/Tobacco Use Status: Current every day Tobacco Type: smokeless tobacco Tobacco: How many years used: 20 Quit status: not considering quitting Smoking risk assessment performed?: Yes Alcohol Intake: current Alcohol Intake frequency: a few times a week Alcohol type: beer Drug use: Never Substance use type: does not use Household members: none Housing: house Communication Needs: None Current gender identity: male What is your relationship status?: Panel score (0-1 are the most socially isolated patients): 0 What type of physical activity do you participate in: walking Duration: 30-45 minutes/day Drive intox or ride w/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 3.ENT: Atraumatic external nose and ears. Moist MM. Neck: Symmetric, trachea midline, No thyromegaly. 4.CVS: +S1/S2, No murmurs or gallops. Peripheral pulses 2+ and equal in all extremities. Brisk capillary refill in all extremities. 5.RESP: Unlabored respiratory effort. Clear to auscultation bilaterally. No wheezes rales or rhonchi 6.GI: Soft, Nondistended, mild left lower quadrant pain on palpation. No pain at McBurney's point. Negative Bright sign. No hepatosplenomegaly. No guarding or rebound. 7.MSK: Normocephalic/Atraumatic, Extremities w/o deformity or ttp No cyanosis or clubbing, Normal movement of all extremities 8.Skin: Warm, Dry. No rashes or lesions. 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 Sensation grossly intact, no focal neurologic deficits. 10.Psych: (AAO) x3. Appropriate mood and affect Course <Hadley Vegas, - Last Filed: 03/07/21 15:58> Vital Signs Vital signs: Vital Signs Temperature 36.6 C 03/07/21 14:18 Pulse 111 H 03/07/21 14:18 Respiratory Rate 18 03/07/21 14:18 Blood Pressure 170/106 H 03/07/21 14:18 Pulse Oximetry 98 03/07/21 14:18 Temperature 36.6 C 03/07/21 14:18 Temperature Source Tympanic 03/07/21 14:18 Pulse 111 H 03/07/21 14:18 Respiratory Rate 14 03/07/21 14:26 Respiratory Effort 03/07/21 14:26 Blood Pressure 170/106 H 03/07/21 14:18 Blood Pressure Position Supine 03/07/21 14:18 Pulse Oximetry 98 03/07/21 14:18 Oxygen Delivery Method Room Air 03/07/21 14:18 Oxygen Flow Rate 0 03/07/21 14:18 Pain Level 2 03/07/21 14:49 Lab/Test Results Lab/Test Results: Laboratory Tests Range/Units 03/07/21 03/07/21 03/07/21 14:20 14:20 14:20 WBC (4.4-10.8) 10^3/uL 14.34 H RBC (4.36-5.78) 10^6/uL 5.10 Hgb (13.5-17.5) g/dL 15.7 Hct (40.0-50.0) % 46.5 MCV (80-95) fL 91.2 MCH (27.0-33.0) pg 30.8 MCHC (32.0-36.0) % 33.8 RDW (11.8-14.1) % 12.4 Plt Count (130-400) 10^3/uL 308 MPV (8.0-11.0) fL 10.5 Immature Gran % 0.4 Neutrophils % 64.2 Lymphocytes % 25.2 Monocytes % 7.9 Eosinophils % 2.0 Basophils % 0.3 Nucleated RBC % % 0 Absolute Neutrophils (1.2-6.7) 10^3/uL 9.21 H Absolute Lymphocytes (1.2-3.4) 10^3/uL 3.61 H Absolute Monocytes (0.1-0.8) 10^3/uL 1.13 H Absolute Eosinophils (0.0-0.7) 10^3/uL 0.29 Absolute Basophils (0.0-0.2) 10^3/uL 0.04 PT (9.3-11.0) sec 9.9 INR (0.9-1.1) 1.0 APTT (21.0-27.5) sec 25.4 Sodium (136-145) mmol/L 135 L Potassium (3.5-5.1) mmol/L 3.5 Chloride (98-107) mmol/L 101 Carbon Dioxide (21.0-32.0) mmol/L 27.3 Anion Gap (3-11) mmol/L 6.7 BUN (7-18) mg/dL 20 H Creatinine (0.70-1.30) mg/dL 1.0 Estimated GFR/1.73 m2 (mL/min/1.73m2) >= 60.00 Glucose (74-106) mg/dL 134 H Calcium (8.5-10.1) mg/dL 9.0 Magnesium (1.8-2.4) mg/dL 2.0 Total Bilirubin (0.2-1.0) mg/dL 0.4 AST (15-37) U/L 15 ALT (16-63) U/L 38 Alkaline Phosphatase (46-116) U/L 79 Troponin I (<0.06) ng/mL < 0.05 NT-Pro-B Natriuret Pep (<300) pg/mL 55 Total Protein (6.4-8.2) g/dL 7.7 Albumin (3.4-5.0) g/dL 3.7 Sign Out <Hadley Vegas DO - Last Filed: 03/07/21 15:58> Sign Out Data: Sign Out Comment: Chest pain, follow-up on troponin, CT scan, likely need admission Last updated by Hadley Vegas DO at 03/07/21 16:28
--- NOTE | 2021-03-07 15:50 | DI.CT_ITS ---
Exam(s) CT THORAX ABDOMEN CTA EXAM: CT THORAX ABDOMEN CTA CLINICAL HISTORY: chest pain and LLQ abdominal pain. TECHNIQUE: Imaging Protocol: Axial CT angiography was performed with multi-slice acquisition and m ulti-planar and/or 3D reconstructions. CONTRAST MATERIAL: Intravenous: Omnipaque 350 Contrast volume:100 mL Oral: No COMPARISON: CT CT CHEST PE CTA from 01/03/2021 FINDINGS: CHEST: Tracheobronchial tree: Patent where visualized. Pulmonary parenchyma: No consolidation or dominant measurable mass. No architectural distortion. Pulmonary Arteries: No evidence of filling defect to suggest pulmonary emboli. Mediastinum and Yara: No dominant adenopathy or fluid collection. Visualized thyroid: Unremarkable. Pleura: No effusion or pneumothorax. Heart: The heart is not dilated. Marked coronary artery calcification. No pericardial effusion. Aorta: Thoracic aorta non-dilated. Mild atherosclerosis. No evidence of dissection. Soft Tissues: Unremarkable. Bones: Within normal limits for the patient's age. ABDOMEN AND PELVIS: Abdomen: Celiac axis/mesenteric arteries: No evidence of occlusion or significant stenosis. Renal Arteries: No evidence of occlusion or significant stenosis. There is a single renal artery per fusing each kidney. Mild atherosclerosis. Aorta: No evidence of occlusion or significant stenosis. No aneurysm or dissection. Mild atheroscl erosis. Pelvis: Iliac Arteries: No evidence of occlusion or significant stenosis. Mild atherosclerosis. ABDOMEN: Liver: There is fatty infiltration of the liver. No measurable mass. The liver measures 18 cm in [facility]. Portal, Superior Mesenteric, and Splenic Veins: Unremarkable. Gallbladder and Biliary Tract: No radiodense calculus or dilation. Pancreas: Normal density, no abnormal calcifications or inflammatory process. Spleen: Normal. Adrenals: No masses seen. Kidneys: Normal size, contour and axis. No radiodense stones or obstructive uropathy. There are tiny hypodensities in the kidneys. They are too small for further characterization but likely reflect sma ll cysts. There is mild bilateral parenchymal scarring present. Bowel: No obstruction or bowel wall thickening. Appendix is unremarkable. There is diverticulosis of the colon, but no evidence of acute diverticulitis. Peritoneal Cavity: No ascites, collection or mesenteric inflammatory response. No free air. Lymph Nodes: Within normal limits. Bones: Within normal limits for the patient's age. Soft Tissues: Unremarkable. IMPRESSION: 1. No evidence of a pulmonary embolus, thoracic aortic dissection or aneurysm. 2. No acute pulmonary process. 3. No evidence of abdominal aortic aneurysm or dissection. 4. No acute abdominal pelvic process. RADIATION DOSE DELIVERED: 985.6mGy.cm Total DLP DATA REPOSITORY: All CT scans at this facility are submitted to the National Radiology Data Registry (NRDR) Dose Index Registry (DIR) with the [employer] (ACR). RADIATION OPTIMIZATION: All CT scans at this facility use at least one of these dose optimization te chniques: automated exposure control; mA and/or kV adjustment per patient size (includes targeted exa ms where dose is matched to clinical indication); or iterative reconstruction.
[2021-03-07] MEDS: Omnipaque 350 MG/ML 100 ML BTL IJ (16:12)
[2021-03-07] MEDS: Normal Saline - Diluent 50 ML VIAL IV (16:13)
[2021-03-07] MEDS: Normal Saline Flush 10 ML SYR IVP (16:14)
--- NOTE | 2021-03-07 16:52 | DI.VRAD_ITS ---
PROCEDURE INFORMATION: Exam: CTA Chest With Contrast Exam date and time: 03/07/2021 4:17 PM Age: 55 years old Clinical indication: Other: Chest \T\ llq pain TECHNIQUE: Imaging protocol: Computed tomographic angiography of the chest with contrast. 3D rendering (Not supervised by radiologist): MIP and/or 3D reconstructed images were created by the technologist. Total images: 2789 Radiation optimization: All CT scans at this facility use at least one of these dose optimization techniques: automated exposure control; mA and/or kV adjustment per patient size (includes targeted exams where dose is matched to clinical indication); or iterative reconstruction. Contrast material: OMNIPAQUE 350; Contrast volume: 100 ml; Contrast route: INTRAVENOUS (IV); COMPARISON: CT CHEST PE CTA 01/03/2021 4:43 PM FINDINGS: Pulmonary arteries: No main, lobar or segmental pulmonary arterial embolism. Aorta: Unremarkable. No aortic aneurysm. No aortic dissection. Lungs: Unremarkable. No consolidation. No masses. Pleural spaces: Unremarkable. No pneumothorax. No pleural effusion. Heart: Unremarkable. No cardiomegaly. No pericardial effusion. Lymph nodes: Unremarkable. No enlarged lymph nodes. Bones/joints: Unremarkable. No acute fracture. Soft tissues: Unremarkable. IMPRESSION: 1. No pulmonary arterial embolism. 2. No aortic aneurysm or dissection. PROCEDURE INFORMATION: Exam: CT Angiography Abdomen With Contrast Exam date and time: 03/07/2021 4:17 PM Age: 55 years old Clinical indication: Other: Chest \T\ llq pain TECHNIQUE: Imaging protocol: Computed tomographic angiography images of the abdomen with intravenous contrast material. 3D rendering (Not supervised by radiologist): MIP and/or 3D reconstructed images were created by the technologist. Radiation optimization: All CT scans at this facility use at least one of these dose optimization techniques: automated exposure control; mA and/or kV adjustment per patient size (includes targeted exams where dose is matched to clinical indication); or iterative reconstruction. Contrast material: OMNIPAQUE 350; Contrast volume: 100 ml; Contrast route: INTRAVENOUS (IV); COMPARISON: CT CHEST PE CTA 01/03/2021 4:43 PM FINDINGS: Aorta: No aortic aneurysm. No aortic dissection. Celiac trunk and mesenteric arteries: No occlusion or significant stenosis. Renal arteries: No occlusion or significant stenosis. Liver: Normal. No mass. Gallbladder and bile ducts: Normal. No calcified stones. No ductal dilation. Pancreas: Normal. No ductal dilation. Spleen: Normal. No splenomegaly. Adrenals: Normal. No mass. Kidneys and ureters: There is a simple-appearing cyst in the right kidney. No follow-up necessary. There is a simple-appearing cyst in the left kidney. No follow-up necessary. Stomach and bowel: There are sigmoid/descending colonic diverticuli. Lymph nodes: Unremarkable. No enlarged lymph nodes. Intraperitoneal space: Unremarkable. No free air. No significant fluid collection. Bones/joints: Unremarkable. No acute fracture. No dislocation. Soft tissues: Unremarkable. IMPRESSION: 1. No aortic aneurysm or dissection. 2. Sigmoid/descending colonic diverticulosis. Dictated and Authenticated by: Ponce Umanzor MD. Ordering:CARLA Butcher MD
[2021-03-07 17:56] LABS: Troponin I < 0.05 ng/mL (<0.06)
--- NOTE | 2021-03-07 18:00 | RT.EKG_ITS ---
APPROVED REPORT Exam: Resting ECG Reason for Exam: chest pressure Patient Location: E HR:66 bpm ECG Measurements Heart Rate 66 AXIS ID 153 P 29 QRSd 81 QRS -1 QT 394 T 33 QTc 413 Conclusion Sinus rhythm...normal P axis, V-rate 60- 99 Normal [place] Normal Electrocardiogram
--- NOTE | 2021-03-07 18:03 | NUR.NOTE ---
Nursing Note: Faxed to [facility] Transfer Center the face sheet, EKG and COVID vaccination status. Licha Cavazos
[2021-03-07 18:37] LABS: Source Nasal/Nares
[2021-03-07 19:34] LABS: COVID-19 PCR Negative (Negative)
--- NOTE | 2021-03-07 20:42 | HPE_ITS ---
Date of service: 03/07/21 Time of Service: 20:48 Assessment and Plan Assessment and plan (1) Chest pain: Status: Acute Assessment and plan: Thus far his troponins have been negative. He has a third troponin for this evening. This does not appear to represent an acute myocardial infarction. Third troponin is pending. He has a normal-appearing EKG. He is on a heparin infusion as a precaution to further thrombotic events. (2) Positive cardiac stress test: Status: Acute Assessment and plan: Markedly positive MPI test on 03/05/2021. There appears to be anterior ischemia possibly consistent with an LAD lesion. (3) Obstructive sleep apnea (adult) (pediatric): Status: Chronic Assessment and plan: Known obstructive sleep apnea. He is on a home CPAP device. He will bring in his home device and use as directed. (4) PTSD (post-traumatic stress disorder): Status: Chronic Assessment and plan: Continue his usual sertraline at bedtime. History of Present Illness History of Present Illness Chief Complaint: Chest pain Narrative: 55-year-old male presented to the ED with chest pain with any activity. He had an MPI study on 03/05/2021 that was positive for ischemia along the anterior wall. He has follow-up scheduled with cardiology for 03/15. With increasing frequency of pain and discomfort he self referred to the emergency room. In the emergency room his EKG was normal, initial troponin negative. He had 2 out of 10 chest pain that responded to a sublingual nitro. Attempt to transfer back to [facility] cardiology limited by capacity issues. [facility] agreed to take him in transfer tomorrow. He is admitted to the ICU on a heparin infusion for further rule out of myocardial infarction and transfer to tertiary care for PCI. Review of Systems Narrative: Patient feels fine at rest. Even minimal exertion such as rolling or sitting up in bed seems to bring on chest pain. The pain will self faviola if he holds completely still. He denies any breathing problems, no shortness of breath. He has no cough, no upper respiratory symptoms. No GI or problems reported. He has no peripheral edema or problems with claudication. [facility] Medical History Adenomatous polyp of ascending colon (12/16/16) sessile serrated CAD (coronary artery disease) (09/27/16) [facility] Cardiology Chondromalacia patellae, right knee Depression PTSD; sees counselor in [place] [facility] S[facility] Essential (primary) hypertension Hand paresthesia History of alcohol abuse (09/27/16) History of tobacco abuse (10/02/16) Hyperlipidemia, unspecified (09/27/16) Impaired fasting glucose 5.7% 03/10/2020 [place] (myocardial infarction) (07/24/07) Age 41 Patellar maltracking Periodontal disease Needs teeth extractions; underinsured; referred to [facility] 03/08/2020 Positive cardiac stress test PTSD (post-traumatic stress disorder) [facility] 01/2019 Surgical History Cardiac Catheterization and Placement of Coronary Artery Stents (07/24/07) x2 placed 2006 Last seen in cardiology 03/2020 Colonoscopy - IV Sedation (12/13/16) Family History Mother Essential hypertension CAD (coronary artery disease) Myocardial infarction x2 Stroke Father , Colon CA at age 62. Diabetes Type II CAD (coronary artery disease) Neoplasm Colon Sister Stroke Sister MS (multiple sclerosis) Sister Essential hypertension Hyperlipidemia TIA (transient ischemic attack) Social History Smoking/Tobacco Use Status: Current every day Tobacco Type: smokeless tobacco Tobacco: How many years used: 20 Quit status: not considering quitting Smoking risk assessment performed?: Yes Alcohol Intake: current Alcohol Intake frequency: a few times a week Alcohol type: beer Drug use: Never Substance use type: does not use Household members: none Housing: house Communication Needs: None Current gender identity: male What is your relationship status?: Panel score (0-1 are the most socially isolated patients): 0 What type of physical activity do you participate in: walking Duration: 30-45 minutes/day Drive intox or ride w/intox route relief driver: No Working smoke detector in home: Yes Fire extinguisher in home: Yes Carbon monox detector in home: Yes Do you feel safe at home: Yes Do you feel safe in your relationship?: Yes Meds Allergies and Home Medications Allergies Allergy/AdvReac Type Severity Reaction Status Date / Time clopidogrel bisulfate Allergy Intermediate Hives Verified 03/07/21 14:22 [From Plavix] Home Medications Medication Instructions Recorded Confirmed Type aspirin,buffd-calcium carb-mag 1 tab PO DAILY 08/29/15 03/07/21 History ezetimibe [Zetia] 10 mg PO DAILY 08/29/15 03/07/21 History rosuvastatin [Crestor] 40 mg PO HS #90 08/29/15 03/07/21 History nitroglycerin 0.4 mg sublingual 0.4 mg SUBLINGUAL DIRECTED PRN 07/10/2006/17 Rx tablet #100 tab sertraline 50 mg tablet 50 mg PO DAILY #90 tab 07/10/20 03/07/21 Rx albuterol sulfate 90 mcg/actuation 2 puff IH Q4H PRN #8.5 gm 08/28/20 03/07/21 Rx aerosol inhaler lisinopril 10 mg tablet 10 mg PO .daily in AM #90 tab 01/19/21 03/07/21 Rx metoprolol succinate 100 mg 100 mg PO HS #90 tab-cap 01/19/21 03/07/21 History tablet,extended release 24 hr Exam Narrative Exam Narrative: On exam he is alert and in no apparent distress. He is moderately obese gentleman. He has no respiratory difficulty. Auscultation of the anterior chest reveals no adventitial breath sounds, no Rales. Heart sounds are regular. No murmur is appreciated. Abdomen is moderately obese, soft, nontender to palpation. The lower extremities are well perfused and well muscled. There are no lesions and there is no edema. Neurologically there are no focal deficits. Results Labs Result diagrams: 03/07/21 14:20 03/07/21 14:20 Labs: Laboratory Results - last 24 hr 03/07/21 03/07/21 03/07/21 14:20 14:20 14:20 WBC 14.34 H RBC 5.10 Hgb 15.7 Hct 46.5 MCV 91.2 MCH 30.8 MCHC 33.8 RDW 12.4 Plt Count 308 MPV 10.5 Immature Gran % 0.4 Neutrophils % 64.2 Lymphocytes % 25.2 Monocytes % 7.9 Eosinophils % 2.0 Basophils % 0.3 Nucleated RBC % 0 Absolute Neutrophils 9.21 H Absolute Lymphocytes 3.61 H Absolute Monocytes 1.13 H Absolute Eosinophils 0.29 Absolute Basophils 0.04 PT 9.9 INR 1.0 APTT 25.4 Sodium 135 L Potassium 3.5 Chloride 101 Carbon Dioxide 27.3 Anion Gap 6.7 BUN 20 H Creatinine 1.0 Estimated GFR/1.73 m2 >= 60.00 Glucose 134 H Calcium 9.0 Magnesium 2.0 Total Bilirubin 0.4 AST 15 ALT 38 Alkaline Phosphatase 79 Troponin I < 0.05 NT-Pro-B Natriuret Pep 55 Total Protein 7.7 Albumin 3.7 COVID-19 Source SARS-CoV-2 (PCR) 03/07/21 03/07/21 17:30 18:25 WBC RBC Hgb Hct MCV MCH MCHC RDW Plt Count MPV Immature Gran % Neutrophils % Lymphocytes % Monocytes % Eosinophils % Basophils % Nucleated RBC % Absolute Neutrophils Absolute Lymphocytes Absolute Monocytes Absolute Eosinophils Absolute Basophils PT INR APTT Sodium Potassium Chloride Carbon Dioxide Anion Gap BUN Creatinine Estimated GFR/1.73 m2 Glucose Calcium Magnesium Total Bilirubin AST ALT Alkaline Phosphatase Troponin I < 0.05 NT-Pro-B Natriuret Pep Total Protein Albumin COVID-19 Source Nasal/Nares SARS-CoV-2 (PCR) Negative Last Vital Signs Temp 36.0 C L 03/07/21 19:39 Pulse 76 03/07/21 19:39 Resp 18 03/07/21 18:50 BP 126/85 03/07/21 18:50 Pulse Ox 97 03/07/21 18:50
[2021-03-07] MEDS: Rosuvastatin 10 MG TAB 40 MG PO (21:07)
[2021-03-07] MEDS: Metoprolol CR 100 MG TABCR PO (21:08)
[2021-03-07 21:56] LABS: Troponin I < 0.05 ng/mL (<0.06)
[2021-03-08] VITALS (34 sets, daily range): BP systolic 88–133; BP diastolic 49–88; PULSE 46–123; RESP 12–25; TEMP 36.7; O2SAT 89–97
--- NOTE | 2021-03-08 | DI.US_ITS ---
APPROVED REPORT EXAM: Comprehensive 2D, Doppler, and color-flow Echocardiogram Patient Location: In-Patient Room/Bed: [id number] [employer] Mdm Developer: Gala Montenegro RDCS (AE) Indications: Unstable angina Other Information Study Quality: Adequate Conclusion Left Ventricle : The left ventricle is normal size. The left ventricular systolic function is normal. The left ventricular ejection fraction is within the normal range. There is normal left ventricular wall thickness. Regional wall motion abnormalities are noted. Apical abnormalities are noted. LVEF is 57%. Right Ventricle : The right ventricle is normal size. The right ventricular systolic function is norm al. The RVSP is 34.6mmHg. Atria : The left atrium size is normal. The right atrium size is normal. Mitral Valve : The mitral valve is normal in structure. Mild mitral regurgitation. No evidence of itzel ral valve stenosis. There are no prior images available for comparison. Wall motion Left Ventricle The left ventricle is normal size. The left ventricular systolic function is normal. The left ventric ular ejection fraction is within the normal range. There is normal left ventricular wall thickness. R egional wall motion abnormalities are noted. Apical abnormalities are noted. There is no ventricular septal defect visualized. LVEF is 57%. Right Ventricle The right ventricle is normal size. The right ventricular systolic function is normal. The RVSP is 3 4.6mmHg. Atria The left atrium size is normal. The right atrium size is normal. The interatrial septum is intact wit h no evidence for an atrial septal defect. Aortic Valve The Aortic valve is sclerotic. Aortic valve is trileaflet. There is no aortic valvular stenosis. Trac e aortic regurgitation. Mitral Valve The mitral valve is normal in structure. No evidence of mitral valve stenosis. Mild mitral regurgitat ion. Tricuspid Valve The tricuspid valve is normal in structure. There is no tricuspid valve stenosis. Mild tricuspid regu rgitation. Pulmonic Valve The pulmonary valve is normal in structure. There is no pulmonic valvular stenosis. Trace pulmonic re gurgitation. Great Vessels The aortic root is normal in size. The ascending aorta is normal in size. Aortic arch is normal in ca liber. IVC is normal in size and collapses >50% with inspiration. Pericardium There is no pericardial effusion. 2D Dimensions IVSD d PLAX 0.96 cm M: 0.6-1.2 LV Vol A2C d MOD 73.9 mL LVPW d PLAX 0.96 cm M: 0.6 - 1.2 LV Vol A4C d MOD 106.9 mL LVID d PLAX 4.83 cm M: 4.2 - 5.8 LA vol/ BSA A2C s A-L 21.9 mL/m2 LVDs 3.35 cm M: 2.5 - 4.0 LA vol/ BSA A4C s A-L 29.8 mL/m2 Ao Root d 2.96 cm M: 3.1 - 3.7 LA Vol/ BSA Biplane s A-L 26.7 mL/m2 RA Area A4C 11.67 cm2 LA Area A4C s MOD 21.22 cm2 RA Vol/ BSA A4C s A-L 12.4 mL/m2 LA Area A2C s MOD 17.41 cm2 Ao Asc Diam d 3.35 cm M: 2.6 - 3.4 LV EF A4C MOD 57.4 % LV EF Teichholz 57.6 % LV EF A2C MOD 57.9 % LVEF (Silvestre's) 55.81 % M: 52 - 72 LV EF Biplane MOD 55.8 % LV Volume 66.55 mL M: 62 - 150 SV 49.99 mL LV Volume Index 32.30 mL/m2 M: 34 - 74 SV Index 24.29 mL/m2 LV Vol Biplane MOD 89.6 mL FS 30.30 % M-Mode TAPSE 1.94 cm (M/F) >1.7 LV Diastology MV E' medial 0.084 (>0.07 m/s) E/A Ratio 1.1 LV E/e MED 8.80 (<14) MV E Vmax 0.74 (0.4-1.3 m/s) MV E' lateral 0.103 (>0.1 m/s) MV A Vmax 0.70 (0.4-1.3 m/s) LV E/e LAT 7.20 (<14) MV E/A Ratio 1.05 MV E/E' medial 8.84 MV E/E' lateral 7.24 Aortic Valve LVOT Area 2.90 cm2 AoV Area Vmax 1.93 cm2 LVOT Vmax 1.15 m/s AoV Area/ BSA (Vmax) 0.94 cm2/m2 LVOT Mean Krunal. 0.73 m/s KAMILLA Mean Krunal. 1.77 cm2 LVOT Peak Grad 5.3 mmHg KAMILLA Mean Krunal. Index 0.86 cm2/m2 LVOT Mean Grad 2.6 mmHg LVOT VTI 0.268 m LVOT Diam s 1.90 cm AoV Vmax 1.73 m/s Velocity Ratio 0.66 AoV Mean Krunal. 1.20 m/s AoV Peak Grad 12.0 mmHg LVOT SV 77.78 mL AoV Mean Grad 6.4 mmHg AoV VTI 0.384 m AoV Area VTI 2.03 cm2 AoV Area/ BSA (VTI) 0.98 cm/m2 Mitral Valve MV DT 193 (160-240 msec) MR Vmax 4.82 m/s MV PHT 56 msec MR VTI 1.724 m MV Area PHT 3.94 cm2 MR Peak Grad 92.8 mmHg MV VTI 0.320 m MR Mean Grad 67.2 mmHg MV VTI Annulus 0.318 m MV Area VTI 2.42 (4.0-6.0 cm2) Pulmonary Valve PV Vmax 0.85 (0.5-1.5 m/s) RVOT Peak Gr. 2.11 mmHg PV Peak Grad 2.9 mmHg RVOT Mean Gr. 1.10 mmHg PV Mean Grad 1.6 mmHg RVOT VTI 0.161 m PV VTI 0.211 m RVOT Vmax 0.73 m/s Tricuspid Valve TR Peak Grad 31.6 mmHg TR Vmax 2.81 m/s RA Pressure 3.00 mmHg RVSP (TR) 34.6 mmHg
[2021-03-08] MEDS: Normal Saline Flush 10 ML SYR IVP (00:29)
[2021-03-08] MEDS: MORPHine 2 MG/ML SYR IVP ×4 (00:30→04:45)
[2021-03-08 00:46] LABS: PTT Activated 30.3 sec (21.0-27.5)
[2021-03-08] MEDS: nitroGLYcerin in D5W 50 MG/250 ML BTL IV (01:45)
--- NOTE | 2021-03-08 05:13 | NUR.NOTE ---
pt NPO since midnight for transfer in AM and probable cardiac cath.
--- NOTE | 2021-03-08 07:30 | RT.EKG_ITS ---
APPROVED REPORT Exam: Resting ECG Reason for Exam: unstable angina Patient Location: I HR:49 bpm ECG Measurements Heart Rate 49 AXIS W[place] 152 P 29 QRSd 82 QRS 5 QT 437 T 39 QTc 396 Conclusion Sinus bradycardia...rate< 60
--- NOTE | 2021-03-08 07:30 | W.PM.PROGNOT ---
Subjective Subjective Interval history since last seen: SB all night. 50s. 10 Chest pain - nitro drip ordered - helped. 99/65. On heparin gtt. PO nitro did not help. Morphine did not help. Awaiting a bed at [facility] Objective Last Vital Signs Temp 36 C L 03/07/21 23:45 Pulse 53 L 03/08/21 04:00 Resp 21 03/08/21 04:01 BP 98/68 L 03/08/21 04:00 Pulse Ox 93 03/08/21 04:01 Laboratory Results - last 24 hr 03/07/21 03/07/21 03/07/21 14:20 14:20 14:20 WBC 14.34 H RBC 5.10 Hgb 15.7 Hct 46.5 MCV 91.2 MCH 30.8 MCHC 33.8 RDW 12.4 Plt Count 308 MPV 10.5 Immature Gran % 0.4 Neutrophils % 64.2 Lymphocytes % 25.2 Monocytes % 7.9 Eosinophils % 2.0 Basophils % 0.3 Nucleated RBC % 0 Absolute Neutrophils 9.21 H Absolute Lymphocytes 3.61 H Absolute Monocytes 1.13 H Absolute Eosinophils 0.29 Absolute Basophils 0.04 PT 9.9 INR 1.0 APTT 25.4 Sodium 135 L Potassium 3.5 Chloride 101 Carbon Dioxide 27.3 Anion Gap 6.7 BUN 20 H Creatinine 1.0 Estimated GFR/1.73 m2 >= 60.00 Glucose 134 H Calcium 9.0 Magnesium 2.0 Total Bilirubin 0.4 AST 15 ALT 38 Alkaline Phosphatase 79 Troponin I < 0.05 NT-Pro-B Natriuret Pep 55 Total Protein 7.7 Albumin 3.7 COVID-19 Source SARS-CoV-2 (PCR) 03/07/21 03/07/21 03/07/21 17:30 18:25 21:27 WBC RBC Hgb Hct MCV MCH MCHC RDW Plt Count MPV Immature Gran % Neutrophils % Lymphocytes % Monocytes % Eosinophils % Basophils % Nucleated RBC % Absolute Neutrophils Absolute Lymphocytes Absolute Monocytes Absolute Eosinophils Absolute Basophils PT INR APTT Sodium Potassium Chloride Carbon Dioxide Anion Gap BUN Creatinine Estimated GFR/1.73 m2 Glucose Calcium Magnesium Total Bilirubin AST ALT Alkaline Phosphatase Troponin I < 0.05 < 0.05 NT-Pro-B Natriuret Pep Total Protein Albumin COVID-19 Source Nasal/Nares SARS-CoV-2 (PCR) Negative 03/08/21 00:15 WBC RBC Hgb Hct MCV MCH MCHC RDW Plt Count MPV Immature Gran % Neutrophils % Lymphocytes % Monocytes % Eosinophils % Basophils % Nucleated RBC % Absolute Neutrophils Absolute Lymphocytes Absolute Monocytes Absolute Eosinophils Absolute Basophils PT INR APTT 30.3 H Sodium Potassium Chloride Carbon Dioxide Anion Gap BUN Creatinine Estimated GFR/1.73 m2 Glucose Calcium Magnesium Total Bilirubin AST ALT Alkaline Phosphatase Troponin I NT-Pro-B Natriuret Pep Total Protein Albumin COVID-19 Source SARS-CoV-2 (PCR)
[2021-03-08 07:34] LABS: Abs Immature Grans 0.05 10^3/uL (0.0-0.06); Absolute Basophil Count 0.04 10^3/uL (0.0-0.2); Absolute Eosinophil Count 0.19 10^3/uL (0.0-0.7); Absolute Lymphocyte Count 2.25 10^3/uL (1.2-3.4); Absolute Monocyte Count 0.68 10^3/uL (0.1-0.8); Absolute Neutrophil Count 6.84 10^3/uL (1.2-6.7); Basophils % 0.4; Eosinophils % 1.9; HCT 41.3 % (40.0-50.0); HGB 13.8 g/dL (13.5-17.5); Immature Grans % 0.5; Lymphocytes % 22.4; MCH 30.6 pg (27.0-33.0); MCHC 33.4 % (32.0-36.0); MCV 91.6 fL (80-95); MPV 10.7 fL (8.0-11.0); Monocytes % 6.8; Nucleated RBC 0 %; Platelet Count 286 10^3/uL (130-400); RBC 4.51 10^6/uL (4.36-5.78); RDW 12.5 % (11.8-14.1); WBC 10.05 10^3/uL (4.4-10.8)
[2021-03-08 07:45] LABS: Anion Gap 8.3 mmol/L (3-11); BUN 17 mg/dL (7-18); CO2 23.7 mmol/L (21.0-32.0); CREATININE 0.9 mg/dL (0.70-1.30); Calcium 8.9 mg/dL (8.5-10.1); Chloride 104 mmol/L (98-107); Glucose 115 mg/dL (74-106); Potassium 4.5 mmol/L (3.5-5.1); Sodium 136 mmol/L (136-145)
[2021-03-08 07:49] LABS: PTT Activated 48.4 sec (21.0-27.5)
[2021-03-08 07:55] LABS: Troponin I < 0.05 ng/mL (<0.06)
[2021-03-08] MEDS: Aspirin E.C. 325 MG TABEC PO (08:05)
[2021-03-08] MEDS: Sertraline 50 MG TAB PO (08:05)
[2021-03-08] MEDS: Ezetimibe 10 MG TAB PO (08:05)
[2021-03-08] MEDS: Lisinopril 10 MG TAB PO (08:05)
[2021-03-08] MEDS: Pantoprazole 40 MG VIAL IVP (08:06)
--- NOTE | 2021-03-08 08:06 | INITIAL_ITS ---
- If Service Date Differs Date of service: 03/08/21 Time of Service: 08:06 Care Management Initial Assess REASON FOR HOSPITALIZATION:: Unstable Angina PAST MEDICAL HISTORY/PAST SURGICAL HISTORY:: Medical History . Adenomatous polyp of ascending colon (12/16/16). sessile serrated. CAD (coronary artery disease) (09/27/16). [facility] Cardiology. Chondromalacia patellae, right knee. Depression. PTSD; sees counselor in [place] [facility]. Essential (primary) hypertension. Hand paresthesia. History of alcohol abuse (09/27/16). History of tobacco abuse (10/02/16). Hyperlipidemia, unspecified (09/27/16). Impaired fasting glucose. 5.7% 03/10/2020. [place] (myocardial infarction) (07/24/07). Age 41. Patellar maltracking. Periodontal disease. Needs teeth extractions; underinsured; referred to [facility] 03/08/2020. Positive cardiac stress test. PTSD (post-traumatic stress disorder). [employer]. [facility] 01/2019. Surgical History . Cardiac Catheterization and Placement of Coronary Artery Stents (07/24/07). x2 placed 2006. Last seen in cardiology 03/2020. Colonoscopy - IV Sedation (12/13/16) PREVIOUS FUNCTIONAL STATUS/SOCIAL/FAMILY SUPPORTS:: Олег lives alone at his home in [place]. 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 He has 3 adult children, Chino, Anuja and Hiram who are supportive. ADVANCE DIRECTIVES:: None, CM gave Tara copy Has patient been provided with info about the portal/API?: Yes Did the patient sign up for the portal?: Yes ( ) CODE STATUS:: Full Code INSURANCE COVERAGE / FINANCIAL ISSUES:: [employer] CURRENT HOME/COMMUNITY SERVICES/EQUIPMENT:: None PRIMARY CARE PHYSICIAN:: Tammy Nolan POTENTIAL DISCHARGE NEEDS:: EMS transfer to [facility] PATIENT/FAMILY EDUCATION NEEDS:: Review discharge instructions and plan, ask me three ANTICIPATED BARRIERS TO DISCHARGE:: None identified. TRANSPORTATION:: via EMS PLAN:: Discharge to [facility] via EMS
[2021-03-08 08:12] LABS: Calculated LDL 225 mg/dL (<100); Cholesterol 297 mg/dL (<200); HDL Cholesterol 38 mg/dL (40-60); Triglyceride 170 mg/dL (<150)
--- NOTE | 2021-03-08 10:04 | W.PM.DS.N ---
Date of service: 03/08/21 Time of Service: 10:05 DS: Diagnosis Discharge Diagnosis (1) Unstable angina: Status: Acute (2) Positive cardiac stress test: Status: Acute Asessment and Plan: @ [facility] (3) CAD (coronary artery disease): Status: Chronic Asessment and Plan: C/p FL and 2 stents in 2006 (4) Familial hyperlipidemia: Status: Chronic (5) Essential (primary) hypertension: Status: Chronic (6) Obstructive sleep apnea (adult) (pediatric): Status: Chronic (7) PTSD (post-traumatic stress disorder): Status: Chronic (8) COVID-19 ruled out by laboratory testing: Status: Ruled-out Discharge Plan Disposition Patient Disposition: [facility] ([facility]) Condition: Fair Discharge Details Reason For Visit: Unstable Angina Admit Date/Time: 03/07/21 18:10 Admit Provider: Олег Knutson Attending Provider: Олег Knutson Primary Care Provider: Tammy Chery Hospital Course Hospital Course: Mr Garcia is a 55 year old male with PMHx of CAD s/p FL/stents x2 in 2006 ([facility]), familial hyperlipidemia, hypertension, JOSEFA on CPAP, who had a positive MPI stress test 03/02/21 at [facility] who presented to [facility] ED with several episodes of chest pain on 03/07/21, some with exertion but then a more continuous episode at rest. He had negative troponins and his serial EKGs did not demonstrate acute ischemia, but given positivity of his stress test about a week ago and symptoms at rest, which are now requiring a nitroglycerin drip to relieve, unstable angina is strongly suspected. The patient is allergic to plavix and is being treated with aspirin, heparin gtt, and nitroglycerin gtt at [facility] ICU. Transfer to [facility] was sought but declined due to lack of beds. [facility] did accept the patient in transfer, but no beds were predicted to be available for 24-48 hrs. Unfortunately we do not know if the patient is going to get a bed at [facility] today. Accepting MD: Dr Amaro. Both non-invasive cardiology consultation and echocardiogram are ordered, but have not yet occured at the time of this document being written. The patient is hemodynamically stable for transfer and is in agreement with transfer. Care for patient as well as completion of his transfer summary on day of transfer took 45 minutes. Please, look for MAR for list of inpatient medications as the list below reflects his outpatient prescriptions. Home Meds and New Rx's Prescriptions: No Action sertraline 50 mg tablet 50 mg PO DAILY Qty: 90 RF: 3 nitroglycerin [Nitrostat] 0.4 mg tablet, sublingual 0.4 mg Sublingual DIRECTED PRN (Reason: chest pain) Qty: 100 RF: 2 albuterol sulfate [Ventolin HFA] 90 mcg/actuation HFA aerosol inhaler 2 puff IH Q4H PRN (Reason: shortness of breath or wheezing) Qty: 8.5 RF: 1 lisinopril 10 mg tablet 10 mg PO .daily in AM Qty: 90 RF: 3 metoprolol succinate 100 mg tablet extended release 24 hr 100 mg PO HS Qty: 90 RF: 3 aspirin,buffd-calcium carb-mag 325 MG tablet 1 tab PO DAILY RF: 0 ezetimibe [Zetia] 10 MG tablet 10 mg PO DAILY RF: 0 rosuvastatin [Crestor] 40 MG tablet 40 mg PO HS Qty: 90 RF: 3 Discharge Instructions Instructions: Acute Coronary Syndrome (DC) Discharge Orders Discharge Orders: Discharge Order (Routine); Ordered 03/08/21 Ordered By: Valentine Green DS: Summary Time Spent with Patient providing and/or coordinating discharge services: Greater than 30 minutes Status at Discharge Functional status at discharge: independent ambulation Overall status at discharge: patient is not back to baseline Mental Status: mental status grossly normal Speech and Movement: speech and movement normal Mood: congruent mood Affect: normal affect Exam Narrative Exam Narrative: General: Pleasant middle-aged male who appears comfortable in bed, A&Ox3 HEENT: EOMI, MMM Heart: RRR, no m/r/g Lungs: CTAB Abdomen: soft, nontender, nondistended Extremities: no edema/clubbing or cyanosis of BLE's Psych Mental Status: mental status grossly normal Speech and Movement: speech and movement normal Mood: congruent mood Affect: normal affect DS: Data Vitals/I&O Vitals and I&O: Vital Signs Temperature 36 C L 03/07/21 23:45 Temperature Source Temporal Artery Scan 03/07/21 19:39 Pulse 53 L 03/08/21 04:00 Pulse 53 L 03/08/21 04:01 Respiratory Rate 21 08/12/21 04:01 Respiratory Effort Non-Labored 03/08/21 00:58 Respiratory Depth Normal 03/08/21 00:58 Respiratory Pattern Normal 03/08/21 00:58 Blood Pressure 98/68 L 03/08/21 04:00 Blood Pressure Mean 74 03/08/21 04:00 Blood Pressure Position Supine 03/08/21 00:58 Pulse Oximetry 93 03/08/21 04:01 Oxygen Delivery Method Cpap 03/08/21 00:58 Oxygen Flow Rate 0 03/08/21 00:58 Pain Level 3 03/08/21 10:02 Intake & Output 03/07/21 03/07/21 03/08/21 11:59 23:59 11:59 Intake Total 53 / 293 426.875 / 426.875 Output Total 400 / 400 Balance -347 / -107 426.875 / 426.875 Weight 96.9 kg 97.5 kg Intake: IV 53 / 53 186.875 / 186.875 Oral 240 / 240 Output: Urine 400 / 400 Other: Urine Color Yellow Urine Appearance Clear Comment voiding in urinal. Data Completed and Pending Completed studies during hospitalization [Text1]: CXR 03/07/21: No acute pulmonary findings. CTA chest 03/07/21: 1. No pulmonary arterial embolism. 2. No aortic aneurysm or dissection. CTA abdomen 03/07/21: 1. No aortic aneurysm or dissection. 2. Sigmoid/descending colonic diverticulosis. MPI 03/02/21 ([facility]): Stress-induced ischemia in the proximal to distal anterior wall extending into the lateral apex. This was not evident on prior study of 03/02/2020. Left ventricular function is normal. Coronary artery and aortic calcifications. Aortic annular calcifications. Labs on day of discharge: Labs from last 24 hours 03/08/21 03/08/21 03/08/21 06:15 06:15 06:15 WBC 10.05 RBC 4.51 Hgb 13.8 Hct 41.3 MCV 91.6 MCH 30.6 MCHC 33.4 RDW 12.5 Plt Count 286 MPV 10.7 Immature Gran % 0.5 Neutrophils % 68.0 Lymphocytes % 22.4 Monocytes % 6.8 Eosinophils % 1.9 Basophils % 0.4 Nucleated RBC % 0 Absolute Neutrophils 6.84 H Absolute Lymphocytes 2.25 Absolute Monocytes 0.68 Absolute Eosinophils 0.19 Absolute Basophils 0.04 PT INR APTT 48.4 H D Sodium Potassium Chloride Carbon Dioxide Anion Gap BUN Creatinine Estimated GFR/1.73 m2 Glucose Calcium Magnesium Total Bilirubin AST ALT Alkaline Phosphatase Troponin I < 0.05 NT-Pro-B Natriuret Pep Total Protein Albumin Triglycerides Total Cholesterol LDL Cholesterol, Calc HDL Cholesterol COVID-19 Source SARS-CoV-2 (PCR) 03/08/21 03/08/21 03/07/21 06:15 00:15 21:27 WBC RBC Hgb Hct MCV MCH MCHC RDW Plt Count MPV Immature Gran % Neutrophils % Lymphocytes % Monocytes % Eosinophils % Basophils % Nucleated RBC % Absolute Neutrophils Absolute Lymphocytes Absolute Monocytes Absolute Eosinophils Absolute Basophils PT INR APTT 30.3 H Sodium 136 Potassium 4.5 D Chloride 104 Carbon Dioxide 23.7 Anion Gap 8.3 BUN 17 Creatinine 0.9 Estimated GFR/1.73 m2 >= 60.00 Glucose 115 H Calcium 8.9 Magnesium Total Bilirubin AST ALT Alkaline Phosphatase Troponin I < 0.05 NT-Pro-B Natriuret Pep Total Protein Albumin Triglycerides 170 H Total Cholesterol 297 H LDL Cholesterol, Calc 225 H HDL Cholesterol 38 L COVID-19 Source SARS-CoV-2 (PCR) 03/07/21 03/07/21 03/07/21 18:25 17:30 14:20 WBC RBC Hgb Hct MCV MCH MCHC RDW Plt Count MPV Immature Gran % Neutrophils % Lymphocytes % Monocytes % Eosinophils % Basophils % Nucleated RBC % Absolute Neutrophils Absolute Lymphocytes Absolute Monocytes Absolute Eosinophils Absolute Basophils PT 9.9 INR 1.0 APTT 25.4 Sodium Potassium Chloride Carbon Dioxide Anion Gap BUN Creatinine Estimated GFR/1.73 m2 Glucose Calcium Magnesium Total Bilirubin AST ALT Alkaline Phosphatase Troponin I < 0.05 NT-Pro-B Natriuret Pep Total Protein Albumin Triglycerides Total Cholesterol LDL Cholesterol, Calc HDL Cholesterol COVID-19 Source Nasal/Nares SARS-CoV-2 (PCR) Negative 03/07/21 03/07/21 14:20 14:20 WBC 14.34 H RBC 5.10 Hgb 15.7 Hct 46.5 MCV 91.2 MCH 30.8 MCHC 33.8 RDW 12.4 Plt Count 308 MPV 10.5 Immature Gran % 0.4 Neutrophils % 64.2 Lymphocytes % 25.2 Monocytes % 7.9 Eosinophils % 2.0 Basophils % 0.3 Nucleated RBC % 0 Absolute Neutrophils 9.21 H Absolute Lymphocytes 3.61 H Absolute Monocytes 1.13 H Absolute Eosinophils 0.29 Absolute Basophils 0.04 PT INR APTT Sodium 135 L Potassium 3.5 Chloride 101 Carbon Dioxide 27.3 Anion Gap 6.7 BUN 20 H Creatinine 1.0 Estimated GFR/1.73 m2 >= 60.00 Glucose 134 H Calcium 9.0 Magnesium 2.0 Total Bilirubin 0.4 AST 15 ALT 38 Alkaline Phosphatase 79 Troponin I < 0.05 NT-Pro-B Natriuret Pep 55 Total Protein 7.7 Albumin 3.7 Triglycerides Total Cholesterol LDL Cholesterol, Calc HDL Cholesterol COVID-19 Source SARS-CoV-2 (PCR) [facility] Medical History Adenomatous polyp of ascending colon (12/16/16) sessile serrated CAD (coronary artery disease) (09/27/16) [facility] Cardiology Chondromalacia patellae, right knee Depression PTSD; sees counselor in [place] [facility] Sertraline Essential (primary) hypertension Hand paresthesia History of alcohol abuse (09/27/16) History of tobacco abuse (10/02/16) Hyperlipidemia, unspecified (09/27/16) Impaired fasting glucose 5.7% 03/10/2020 FL (myocardial infarction) (07/24/07) Age 41 Patellar maltracking Periodontal disease Needs teeth extractions; underinsured; referred to [facility] 03/08/2020 Positive cardiac stress test PTSD (post-traumatic stress disorder) Security Program [facility] 01/2019 Surgical History Cardiac Catheterization and Placement of Coronary Artery Stents (07/24/07) x2 placed 2006 Last seen in cardiology 03/2020 Colonoscopy - IV Sedation (12/13/16) Family History Mother Essential hypertension CAD (coronary artery disease) Myocardial infarction x2 Stroke Father , Colon CA at age 62. Diabetes Type II CAD (coronary artery disease) Neoplasm Colon Sister Stroke Sister MS (multiple sclerosis) Sister Essential hypertension Hyperlipidemia TIA (transient ischemic attack) Social History Smoking/Tobacco Use Status: Current every day Tobacco Type: smokeless tobacco Tobacco: How many years used: 20 Quit status: not considering quitting Smoking risk assessment performed?: Yes Alcohol Intake: current Alcohol Intake frequency: a few times a week Alcohol type: beer Drug use: Never Substance use type: does not use Household members: none Housing: house Communication Needs: None Current gender identity: male What is your relationship status?: Panel score (0-1 are the most socially isolated patients): 0 What type of physical activity do you participate in: walking Duration: 30-45 minutes/day Drive intox or ride 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
--- NOTE | 2021-03-08 11:47 | RESPIRATORY ---
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 Auto-titrate Min 8 / Max 18 cmH2O FiO2: 21% Face Mask: Medium DME: [facility] *Pt uses no H2O in machine. Pt was informed by RT this morning upon inspection of home CPAP unit, that [facility] [employer] has put out a recall on this model, and that if pt is to stay with us another night, we will offer our in-house Brittaney unit as a substitute.
--- NOTE | 2021-03-08 15:16 | PDOC.CMDIS ---
- If Service Date Differs Date of service: 03/08/21 Time of Service: 15:16 LACE Index Scoring Tool - Questions: Length of Stay (in days): 1 Acuity (Admit via E.D.?): Yes Comorbidities: Previous M.I. E.D. Visits: 2 - Answers: Total Score: 7 Risk of Readmission: Low Risk Care Management Discharge Reason for Hospitalization: Unstable Angina Discharge Plan: EMS transfer to [facility] coordinated by nursing underwriting clerks supervisor Patient/Family Education Needs: Review of discharge instructions and plan, ask me three. Services Needed at Discharge: Transportation
== END 2021-03-08 14:50 | disposition short-term general hospital (02) | DRG 303 ==
LOC: ER 16:34 → ICU 19:05
PROVIDERS: Student in an Organized Health Care Education/Training Program; Admitting Provider Family Medicine; Emergency Provider Physician Assistant; PCP Nurse Practitioner Adult Health; Visit Provider Family Medicine
DX: I25.110 Atherosclerotic heart disease of native coronary artery with unstable angina pectoris (principal); E78.49 Other hyperlipidemia; R94.39 Abnormal result of other cardiovascular function study; F43.10 Post-traumatic stress disorder, unspecified; Z20.822 Contact with and (suspected) exposure to COVID-19; G47.33 Obstructive sleep apnea (adult) (pediatric); I10 Essential (primary) hypertension; M22.41 Chondromalacia patellae, right knee; F32.9 Major depressive disorder, single episode, unspecified; F10.11 Alcohol abuse, in remission; Z87.891 Personal history of nicotine dependence; R73.01 Impaired fasting glucose; I25.2 Old myocardial infarction; Z95.5 Presence of coronary angioplasty implant and graft
CPT/HCPCS: 36415; 71275; 74175; 80048; 80053; 80061; 87635; 93005; 96365; 96376; 99285; 71045; 83735; 83880; 84484; 85025; 85610; 85730; 93010; 93306; 99223; 99239; J2270; J3490

== ENCOUNTER 2021-04-25 08:00 | Outpatient (RCR) | payer BC, SELFPAY | END 2021-04-26 23:59 | disposition home or self-care (01) | LOC: CR 08:00 | PROVIDERS: PCP Nurse Practitioner Adult Health; Visit Provider Family Medicine | DX: Z51.89 Encounter for other specified aftercare (principal); Z95.1 Presence of aortocoronary bypass graft | CPT/HCPCS: S9472 ==

== ENCOUNTER 2021-05-16 08:00 | Outpatient (RCR) | payer BC, SELFPAY | END 2021-05-27 23:59 | disposition home or self-care (01) | LOC: CR 08:00 | PROVIDERS: PCP Nurse Practitioner Adult Health; Visit Provider Family Medicine | DX: Z51.89 Encounter for other specified aftercare (principal); I25.110 Atherosclerotic heart disease of native coronary artery with unstable angina pectoris; Z95.1 Presence of aortocoronary bypass graft | CPT/HCPCS: S9472 ==

== ENCOUNTER 2021-06-25 08:00 | Outpatient (RCR) | payer BC, SELFPAY | END 2021-06-26 23:59 | disposition home or self-care (01) | LOC: CR 08:00 | PROVIDERS: PCP Nurse Practitioner Adult Health; Visit Provider Family Medicine | DX: Z51.89 Encounter for other specified aftercare (principal); I25.110 Atherosclerotic heart disease of native coronary artery with unstable angina pectoris; Z95.1 Presence of aortocoronary bypass graft | CPT/HCPCS: S9472 ==

== ENCOUNTER 2021-07-25 08:00 | Outpatient (RCR) | payer BC, SELFPAY | END 2021-07-27 23:59 | disposition home or self-care (01) | LOC: CR 08:00 | PROVIDERS: PCP Nurse Practitioner Adult Health; Visit Provider Family Medicine | DX: Z51.89 Encounter for other specified aftercare (principal); I20.0 Unstable angina; Z95.1 Presence of aortocoronary bypass graft | CPT/HCPCS: S9472 ==

== ENCOUNTER 2021-07-30 14:35 | Outpatient (RCR) | payer BC, SELFPAY | END 2021-08-27 23:59 | disposition home or self-care (01) | LOC: CR 14:35 | PROVIDERS: PCP Nurse Practitioner Adult Health; Visit Provider Family Medicine | DX: Z51.89 Encounter for other specified aftercare (principal); I20.0 Unstable angina; Z95.1 Presence of aortocoronary bypass graft | CPT/HCPCS: S9472 ==

== ENCOUNTER 2021-08-03 08:00 | Outpatient (RCR) | payer BC, SELFPAY | END 2021-08-23 16:42 | LOC: CR 08:00 | PROVIDERS: PCP Nurse Practitioner Adult Health; Visit Provider Family Medicine | DX: Z51.89 Encounter for other specified aftercare (principal); I20.0 Unstable angina; Z95.1 Presence of aortocoronary bypass graft | CPT/HCPCS: S9472 ==

== ENCOUNTER 2022-03-26 11:36 | Inpatient (IN) | payer SELFPAY ==
[2022-03-26] VITALS (37 sets, daily range): BP systolic 106–177; BP diastolic 69–122; PULSE 68–109; RESP 6–24; TEMP 36.4–37; O2SAT 92–99
--- NOTE | 2022-03-26 12:45 | DI.CT_ITS ---
Exam(s) CT HEAD WO EXAM: CT HEAD WO CLINICAL HISTORY: headache, confusion, r/o acute cva. TECHNIQUE: Imaging Protocol: Axial computed tomography images with coronal and sagittal reformatted images were created and reviewed COMPARISON: No exams were available for comparison FINDINGS: The ventricular system is normal in appearance. There are areas of decreased attenuation in the right hemisphere involving portions of the temporal, frontal, and parietal lobes. Findings are suspicious for acute infarction, appropriate follow-up roge dies recommended. No evidence of acute intracranial hemorrhage, mass effect, or midline shift. The orbital structures are unremarkable. The temporal bone structures appear intact. Calvarium: Normal. Visualized Paranasal sinuses/Mastoids: Clear. IMPRESSION: The appearance is suspicious for right hemisphere infarction as described above. No evidence of acut e intracranial hemorrhage. Appropriate follow-up studies requested.. RADIATION DOSE DELIVERED: 764.12mGy.cm Total DLP 764.12mGy.cm Total DLP !Error CTDIvol DATA REPOSITORY: All CT scans at this facility are submitted to the National Radiology Data Registry (NRDR) Dose Index Registry (DIR) with the [employer] (ACR). RADIATION OPTIMIZATION: All CT scans at this facility use at least one of these dose optimization te chniques: automated exposure control; mA and/or kV adjustment per patient size (includes targeted exa ms where dose is matched to clinical indication); or iterative reconstruction.
--- NOTE | 2022-03-26 12:56 | W.ED.GENAD ---
Discharge Plan Disposition Patient Disposition: [facility] INPATIENT Condition: Improving Discharge Details Clinical Impression: Acute cerebrovascular accident (CVA), Right hemisphere, cerebral infarction, History of alcohol abuse Admit Date/Time: 03/26/22 17:37 Admit Provider: Wayne Holman Attending Provider: Wayne Holman Primary Care Provider: Tammy Chery ED Provider: Dede Norris Discharge Data Discharge Date/Time-TO BE ENTERED AT DEPARTURE: 03/26/22 18:31 Medical Decision Making 1150 -- 56-year-old male with a history of hypertension, hyperlipidemia, coronary artery disease with CABG and daily alcohol abuse who presents with confusion, feeling feverish, shaking, headache and problems with coordination for the past 2 days. Patient does endorse confusion but is oriented x3. He has no obvious focal deficits on exam. His blood pressure is significantly elevated to 177/122 on arrival, now improved to 140s/90s. He does not demonstrate any symptoms of acute alcohol withdrawal. Differential diagnosis includes CVA, meningitis, COVID, alcohol withdrawal, electrolyte abnormality, dehydration. Will obtain screening labs, stat CT head, chest x-ray in addition to lactate, blood cultures, ammonia, COVID swab. Labs and imaging reviewed. CT head notes suspicion for right hemispheric infarction but no evidence of acute intracranial hemorrhage. Discussed with radiologist and will obtain MRI brain. 1400 -- Case also discussed with Dr. Gama --patient took a total of 9 tabs of 81 mg aspirin today, no recommendation for dual antiplatelet therapy at this time. Recommends MRA brain and neck in addition to MRI brain. Recommends to treat blood pressure only if systolic blood pressure greater than 185 and to attempt to keep blood pressure above 140. Will need admission for telemetry monitoring, echocardiogram. Call placed to hospitalist team at 1411. 1720 -- Dr. Gama evaluated patient at bedside. He has an allergy to Plavix which causes hives. Consider Aggrenox versus Brilinta. Case discussed with pharmacy and who notes that there is cross sensitivity with Brilinta and Plavix. Aggrenox not in formulary. Discussed again with Dr. Gama who recommends treatment only with Plavix which can start tomorrow. MRI confirms right hemispheric infarction and microhemorrhage. MRA brain and neck no obvious acute findings but limited study. Discussed with radiology and neurology who recommend CTA head and neck. 1736 -- Case d/w Dr. Holman who accepts pt for admission. Medical Records Medical records reviewed: Yes I reviewed the patient's medical records. Imaging Data Radiologic Study: Radiologist's impression: CT HEAD WO CLINICAL HISTORY: ? headache, confusion, r/o acute cva. ? TECHNIQUE:? Imaging Protocol: Axial computed tomography images with coronal and sagittal reformatted images were created and reviewed COMPARISON:? No exams were available for comparison FINDINGS: The ventricular system is normal in appearance. There are areas of decreased attenuation in the right hemisphere involving portions of the temporal, frontal, and parietal lobes.? Findings are suspicious for acute infarction, appropriate follow-up studies recommended. No evidence of acute intracranial hemorrhage, mass effect, or midline shift. The orbital structures are unremarkable. The temporal bone structures appear intact. Calvarium: Normal. Visualized Paranasal sinuses/Mastoids: Clear. IMPRESSION: The appearance is suspicious for right hemisphere infarction as described above.? No evidence of acute intracranial hemorrhage.? Appropriate follow-up studies requested.. XR CHEST 2V PA ? LATERAL CLINICAL HISTORY:? confusion, fever, r/o pneumonia TECHNIQUE:? COMPARISON:? CR XR PORTABLE CHEST AP from 03/07/2021 FINDINGS: The heart is not enlarged.? Lungs appear clear and well expanded.? No pleural effusion seen.? Note is made of multiple mediastinal vascular clips consistent with prior CABG surgery. IMPRESSION: No evidence of acute process. MR BRAIN WO CLINICAL HISTORY:? possible R hemispheric infarction TECHNIQUE:? Multiplanar multisequence MRI of the brain was performed.? COMPARISON:? No exams were available for comparison FINDINGS: The ventricular system is normal in appearance. There a are areas of right hemorrhagic signal abnormality noted on T2 weighted and FLAIR imaging which are predominantly cortical which involve portions of the right temporal, frontal, and parietal lobes period a few scattered white matter signal abnormalities are also seen, most notably on DIR space images period. The orbital and temporal bone structures appear intact as does the pituitary. Diffusion weighted imaging shows areas of diffusion restriction corresponding to the signal abnormalities seen on T2 weighted imaging and ADC imaging confirms that these are areas of acute or subacute infarction period. Susceptibility weighted imaging shows some signal void esparza in the region of the infarcted tissue consistent with microhemorrhage period. IMPRESSION: Norm the appearance is consistent with an acute or subacute infarction involving the right hemisphere with involved portions of the right temporal, frontal, and parietal cortex and subcortical region.? Some signal void esparza is noted on susceptibility weighted imaging consistent with microhemorrhage at these sites. MR ANGIO BRAIN WO CLINICAL HISTORY:? R hemispheric infarction on ct. TECHNIQUE:? Multiplanar multisequence MRI was performed. COMPARISON:? MR MR BRAIN WO from 03/26/2022 FINDINGS: MR angiography of the nmjpfl-ok-[place] vasculature was performed utilizing 3D [id number]-dy-evudxq imaging. There is right dominant vertebral circulation with unremarkable appearance of vertebral and basilar arteries.? Posterior cerebral arteries bilaterally and major branches appear intact. Evaluation of internal carotid arteries is somewhat limited due to artifact.? No gross aneurysm, stenosis, or dissection seen. Anterior cerebral arteries and major branches appear intact with no evident aneurysm, stenosis, or dissection. Middle cerebral arteries appear intact bilaterally with no evidence of aneurysm, stenosis, or dissection.? There is a question of somewhat relative paucity of sylvian branches on the right as compared to the left which could be associated with the patient's known right hemisphere infarct. IMPRESSION: No major vessel abnormality identified.? Question of paucity of sylvian branches of right middle cerebral artery which could reflect occlusion of smaller branch vessels. MR ANGIO NECK WO CLINICAL HISTORY:? R hemispheric infarction on CT. TECHNIQUE:? Multiplanar multisequence MRI was performed. COMPARISON:? MR MR ANGIO NECK WO from 03/26/2022 MR MR ANGIO BRAIN WO from 03/26/2022 FINDINGS: MR angiography of the cervical region was performed utilizing 2D lxkp-tk-cykmhi and 3D cxfp-pv-vjlzff imaging.? There is moderate artifact in the region surveyed.? Analysis of the raw data and MIP images shows no convincing stenosis, aneurysm, or dissection of the common, internal, or external carotid arteries.? Visualized vertebral arteries also appear grossly intact as does the basilar artery. IMPRESSION: Somewhat technically limited study shows no convincing hemodynamically significant finding in the carotid circulation in the cervical region. Lab Data Lab results reviewed: Yes I reviewed the patient's lab results. Labs: Laboratory Tests Range/Units 03/26/22 03/26/22 03/26/22 12:15 12:15 12:54 WBC (4.4-10.8) 10^3/uL 10.97 H RBC (4.36-5.78) 10^6/uL 5.32 Hgb (13.5-17.5) g/dL 16.6 Hct (40.0-50.0) % 48.8 MCV (80-95) fL 92 MCH (27.0-33.0) pg 31.2 MCHC (32.0-36.0) % 34.0 RDW (11.8-14.1) % 13.0 Plt Count (130-400) 10^3/uL 359 MPV (8.0-11.0) fL 10.1 Immature Gran % 0.4 Neutrophils % 65.9 Lymphocytes % 25.4 Monocytes % 7.2 Eosinophils % 0.7 Basophils % 0.4 Nucleated RBC % (0.0-0.3) % 0.0 Absolute Neutrophils (1.2-6.7) 10^3/uL 7.23 H Absolute Lymphocytes (1.2-3.4) 10^3/uL 2.79 Absolute Monocytes (0.1-0.8) 10^3/uL 0.79 Absolute Eosinophils (0.0-0.7) 10^3/uL 0.08 Absolute Basophils (0.0-0.2) 10^3/uL 0.04 VBG Lactate (0.6-1.4) mmol/L Sodium (136-145) mmol/L 136 Potassium (3.5-5.1) mmol/L 3.7 Chloride (98-107) mmol/L 101 Carbon Dioxide (21.0-32.0) mmol/L 23.8 Anion Gap (3-11) mmol/L 11.2 H BUN (7-18) mg/dL 17 Creatinine (0.70-1.30) mg/dL 1.2 Est GFR (CKD-EPI 2020) (mL/min/1.73m2) 70.53 Glucose (74-106) mg/dL 108 H Calcium (8.5-10.1) mg/dL 8.8 Magnesium (1.8-2.4) mg/dL 1.7 L Total Bilirubin (0.2-1.0) mg/dL 0.7 AST (15-37) U/L 22 ALT (16-63) U/L 34 Alkaline Phosphatase (46-116) U/L 64 Ammonia (11-32) umol/L Troponin I (<or=60) ng/L < 50 Total Protein (6.4-8.2) g/dL 7.4 Albumin (3.4-5.0) g/dL 3.7 Urine Color (Yellow) Urine Clarity (Clear) Urine pH (5-8) Ur Specific [place] (1.005-1.025) Urine Protein (Negative) mg/dL Urine Ketones (Negative) mg/dL Urine Blood (Negative) Urine Nitrite (Negative) Urine Bilirubin (Negative) Urine Urobilinogen (Up TO 0.2) EU/dL Ur Leukocyte Esterase (Negative) Urine Glucose (Negative) mg/dL Salicylates (<2.8) mg/dL < 2.8 Urine Opiates Screen (Negative) Urine Methadone Screen (Negative) Ur Barbiturates Screen (Negative) Ur Tricyclics Screen (Negative) Ur Amphetamines Screen (Negative) U Benzodiazepines Scrn (Negative) Urine Cocaine Screen (Negative) Ur THC Screen (Negative) Ethyl Alcohol (<10) mg/dL COVID-19 Source SARS-CoV-2 (PCR) (Negative) Range/Units 03/26/22 03/26/22 03/26/22 12:54 12:54 12:54 WBC (4.4-10.8) 10^3/uL RBC (4.36-5.78) 10^6/uL Hgb (13.5-17.5) g/dL Hct (40.0-50.0) % MCV (80-95) fL MCH (27.0-33.0) pg MCHC (32.0-36.0) % RDW (11.8-14.1) % Plt Count (130-400) 10^3/uL MPV (8.0-11.0) fL Immature Gran % Neutrophils % Lymphocytes % Monocytes % Eosinophils % Basophils % Nucleated RBC % (0.0-0.3) % Absolute Neutrophils (1.2-6.7) 10^3/uL Absolute Lymphocytes (1.2-3.4) 10^3/uL Absolute Monocytes (0.1-0.8) 10^3/uL Absolute Eosinophils (0.0-0.7) 10^3/uL Absolute Basophils (0.0-0.2) 10^3/uL VBG Lactate (0.6-1.4) mmol/L 1.4 Sodium (136-145) mmol/L Potassium (3.5-5.1) mmol/L Chloride (98-107) mmol/L Carbon Dioxide (21.0-32.0) mmol/L Anion Gap (3-11) mmol/L BUN (7-18) mg/dL Creatinine (0.70-1.30) mg/dL Est GFR (CKD-EPI 2020) (mL/min/1.73m2) Glucose (74-106) mg/dL Calcium (8.5-10.1) mg/dL Magnesium (1.8-2.4) mg/dL Total Bilirubin (0.2-1.0) mg/dL AST (15-37) U/L ALT (16-63) U/L Alkaline Phosphatase (46-116) U/L Ammonia (11-32) umol/L < 10 L Troponin I (<or=60) ng/L Total Protein (6.4-8.2) g/dL Albumin (3.4-5.0) g/dL Urine Color (Yellow) Urine Clarity (Clear) Urine pH (5-8) Ur Specific [place] (1.005-1.025) Urine Protein (Negative) mg/dL Urine Ketones (Negative) mg/dL Urine Blood (Negative) Urine Nitrite (Negative) Urine Bilirubin (Negative) Urine Urobilinogen (Up TO 0.2) EU/dL Ur Leukocyte Esterase (Negative) Urine Glucose (Negative) mg/dL Salicylates (<2.8) mg/dL Urine Opiates Screen (Negative) Urine Methadone Screen (Negative) Ur Barbiturates Screen (Negative) Ur Tricyclics Screen (Negative) Ur Amphetamines Screen (Negative) U Benzodiazepines Scrn (Negative) Urine Cocaine Screen (Negative) Ur THC Screen (Negative) Ethyl Alcohol (<10) mg/dL < 3.0 COVID-19 Source SARS-CoV-2 (PCR) (Negative) Range/Units 03/26/22 03/26/22 03/26/22 12:58 14:06 14:06 WBC (4.4-10.8) 10^3/uL RBC (4.36-5.78) 10^6/uL Hgb (13.5-17.5) g/dL Hct (40.0-50.0) % MCV (80-95) fL MCH (27.0-33.0) pg MCHC (32.0-36.0) % RDW (11.8-14.1) % Plt Count (130-400) 10^3/uL MPV (8.0-11.0) fL Immature Gran % Neutrophils % Lymphocytes % Monocytes % Eosinophils % Basophils % Nucleated RBC % (0.0-0.3) % Absolute Neutrophils (1.2-6.7) 10^3/uL Absolute Lymphocytes (1.2-3.4) 10^3/uL Absolute Monocytes (0.1-0.8) 10^3/uL Absolute Eosinophils (0.0-0.7) 10^3/uL Absolute Basophils (0.0-0.2) 10^3/uL VBG Lactate (0.6-1.4) mmol/L Sodium (136-145) mmol/L Potassium (3.5-5.1) mmol/L Chloride (98-107) mmol/L Carbon Dioxide (21.0-32.0) mmol/L Anion Gap (3-11) mmol/L BUN (7-18) mg/dL Creatinine (0.70-1.30) mg/dL Est GFR (CKD-EPI 2020) (mL/min/1.73m2) Glucose (74-106) mg/dL Calcium (8.5-10.1) mg/dL Magnesium (1.8-2.4) mg/dL Total Bilirubin (0.2-1.0) mg/dL AST (15-37) U/L ALT (16-63) U/L Alkaline Phosphatase (46-116) U/L Ammonia (11-32) umol/L Troponin I (<or=60) ng/L Total Protein (6.4-8.2) g/dL Albumin (3.4-5.0) g/dL Urine Color (Yellow) Yellow Urine Clarity (Clear) Clear Urine pH (5-8) 7.0 Ur Specific [place] (1.005-1.025) 1.020 Urine Protein (Negative) mg/dL Negative Urine Ketones (Negative) mg/dL Trace H Urine Blood (Negative) Negative Urine Nitrite (Negative) Negative Urine Bilirubin (Negative) Negative Urine Urobilinogen (Up TO 0.2) EU/dL 1.0 H Ur Leukocyte Esterase (Negative) Negative Urine Glucose (Negative) mg/dL Negative Salicylates (<2.8) mg/dL Urine Opiates Screen (Negative) Negative Urine Methadone Screen (Negative) Negative Ur Barbiturates Screen (Negative) Negative Ur Tricyclics Screen (Negative) Negative Ur Amphetamines Screen (Negative) Negative U Benzodiazepines Scrn (Negative) Negative Urine Cocaine Screen (Negative) Negative Ur THC Screen (Negative) Negative Ethyl Alcohol (<10) mg/dL COVID-19 Source Nasal/Nares SARS-CoV-2 (PCR) (Negative) Negative ECG Data Interpretation: EKG not yet obtained in the emergency department HPI General Mode of arrival: ambulatory. Date/Time Provider Initiated Documentation: 03/26/22 11:55. Limitations to Documentation: no limitations. Information obtained by: patient. HPI Narrative: Pt is a 56yo M with a h/o daily alcohol abuse, coronary artery disease with CABG in fall 2020 [facility], hypertension, hyperlipidemia, tobacco abuse who presents for report of confusion, headache, feeling off balance, fever, chills and shaking for the past 2 days. Patient's son-in-law is at bedside who states that patient's daughter noted that patient was confused last night and was having difficulty using his phone and using the remote. Son-in-law states that he witnessed the same behaviors today and noted that patient appeared to be having difficulty with coordination and off balance. Patient states he does note that he appears more confused for the past 2 days. He states he has been feeling fine until 2 days ago when he feels he developed fever, chills and aching. He states he did not check his temperature at that time. He states since then he has felt confused at times and having difficulty operating his phone. He states he has been eating and drinking. He states his headache is right-sided, mainly a dull ache and currently 7/10 but has been 9/10 at its worst. He took his regular baby aspirin this morning and then took an additional 8 tabs of 81 mg aspirin for his headache approximately 2 hours ago. He took ibuprofen yesterday but no additional aspirin or Tylenol over the past few days. He does admit to nasal congestion but denies any sore throat, cough, chest pain, shortness of breath, abdominal pain, vomiting, diarrhea or urinary symptoms. He states he drinks approximately 6-8 beers daily for the past several years. He states his last drink was 2 nights ago prior to onset of the symptoms. He denies any history of alcohol withdrawal and states he does not feel that he is currently in alcohol withdrawal. Related Data Home Medications Medication Instructions Recorded Confirmed sertraline 50 mg tablet 50 mg PO DAILY #90 tabs 07/10/20 03/26/22 albuterol sulfate 90 mcg/actuation 2 puff inhalation Q4H PRN 08/28/20 03/26/22 aerosol inhaler (Ventolin HFA) shortness of breath or wheezing #8.5 grams acetaminophen 500 mg tablet 500 mg PO Q6H PRN 03/20/21 03/26/22 aspirin 81 mg tablet,delayed 81 mg PO DAILY 03/20/21 03/26/22 release (Adult Low Dose Aspirin) ezetimibe 10 mg tablet (Zetia) 10 mg PO DAILY #90 tabs 04/17/21 03/26/22 metoprolol tartrate 25 mg tablet 25 mg PO BID #180 tabs 07/04/21 03/26/22 aspirin 25 mg-dipyridamole 200 mg 1 cap PO BID #60 caps 03/28/22 capsule,ext.release 12 hr multiphase atorvastatin 40 mg tablet 80 mg PO QHS #90 tabs 03/28/22 03/26/22 Previous Rx's Medication Instructions Recorded sertraline 50 mg tablet 50 mg PO DAILY #90 tabs 07/10/20 albuterol sulfate 90 mcg/actuation 2 puff inhalation Q4H PRN 08/28/20 aerosol inhaler (Ventolin HFA) shortness of breath or wheezing #8.5 grams ezetimibe 10 mg tablet (Zetia) 10 mg PO DAILY #90 tabs 04/17/21 metoprolol tartrate 25 mg tablet 25 mg PO BID #180 tabs 07/04/21 aspirin 25 mg-dipyridamole 200 mg 1 cap PO BID #60 caps 03/28/22 capsule,ext.release 12 hr multiphase atorvastatin 40 mg tablet 80 mg PO QHS #90 tabs 03/28/22 Allergies Allergy/AdvReac Type Severity Reaction Status Date / Time clopidogrel bisulfate Allergy Intermediate Hives Verified 03/26/22 11:49 [From Plavix] General Stated Complaint: GenMedical WILL: 3 Review of Systems All systems reviewed & are unremarkable except as noted in HPI and below Constitutional Constitutional: Denies chills, Denies excessive sweating, Denies fatigue, Reports fever(s) (subjective), Reports headache(s), Denies weakness and Denies weight loss Eyes Eyes: Reports system reviewed and no additional complaints, except as documented and Denies blurry vision ENT Ears, Nose, Mouth, and Throat: Denies vertigo, Denies dizziness, Denies otalgia, Reports headache(s), Denies nasal congestion, Denies sore throat and Denies throat swelling Cardiovascular Cardiovascular: Denies chest pain, Denies syncope, Denies rapid heart rate and Denies dyspnea Respiratory Respiratory: Denies chest congestion, Denies cough, Denies pain on inspiration and Denies dyspnea Gastrointestinal Gastrointestinal: Denies abdominal pain, Denies diarrhea and Denies vomiting Genitourinary Genitourinary: Denies hematuria, Denies dysuria and Denies flank pain Musculoskeletal Musculoskeletal: Denies back pain and Denies joint swelling Integumentary/Breasts Skin/Breast: Denies lesions and Denies rash Neurologic Neurologic: Denies behavioral changes, Reports confusion, Denies vertigo, Denies dizziness, Denies syncope, Reports headache(s), Denies localized weakness and Denies weakness Psychiatric Psychiatric: Denies behavioral changes, Reports confusion and Denies depression Endocrine Endocrine: Denies excessive sweating and Denies fatigue Hematologic/Lymphatic Hematologic/Lymphatic: Denies easy bruising and Denies lymphadenopathy Allergic/Immunologic Allergic/Immunologic: Denies throat swelling PFSH All Active Problems (Updated 03/26/22 @ 20:28 by Chuyita Gama MD) Jose Alejandro-neglect of left side (Acute) Acute cerebrovascular accident (CVA) (Acute) Right hemisphere, cerebral infarction (Acute) History of alcohol abuse (Acute) Familial hyperlipidemia (Chronic) Essential (primary) hypertension (Chronic) Tubular adenoma (Acute ~08/2020) 09/13/20 [facility]ag[facility] Family history of colorectal cancer (Chronic) F Sessile colonic polyp (Acute) Diverticulosis (Acute) Obstructive sleep apnea (adult) (pediatric) (Chronic) 03/30/2020 Anuja Vicente NP CPAP Impaired fasting glucose (Acute) 5.7% 03/10/2020 Periodontal disease (Acute) Needs teeth extractions; underinsured; referred to [facility] 03/08/2020 History of tobacco abuse (Chronic 10/02/16) CAD (coronary artery disease) (Chronic 09/27/16) [facility] Cardiology Medical History Adenomatous polyp of ascending colon (12/16/16) sessile serrated Chondromalacia patellae, right knee Depression PTSD; sees counselor in [place] [facility] Sertraline Hand paresthesia History of alcohol abuse (09/27/16) [place] (myocardial infarction) (07/24/07) Age 41 Patellar maltracking Positive cardiac stress test s/p CABG x4 PTSD (post-traumatic stress disorder) [facility] 01/2019 Surgical History Cardiac Catheterization and Placement of Coronary Artery Stents (07/24/07) x2 placed 2007 Last seen in cardiology 03/2020 Colonoscopy - IV Sedation (12/13/16) H/O four vessel coronary artery bypass graft (03/13/21) [facility] 03/16/21 Family History Mother Essential hypertension CAD (coronary artery disease) Myocardial infarction x2 Stroke Father , Colon CA at age 62. Diabetes Type II CAD (coronary artery disease) Neoplasm Colon Sister Stroke Sister MS (multiple sclerosis) Sister Essential hypertension Hyperlipidemia TIA (transient ischemic attack) Social History Smoking/Tobacco Use Status: Current every day Tobacco Type: smokeless tobacco Quit status: has quit before Smoking risk assessment performed?: Yes Alcohol Intake: current Alcohol Intake frequency: 3 or more drinks per day Alcohol type: beer Drug use: Never Substance use type: does not use Adopted: No Caregiver/Support person: No Foster care: No Household members: none Housing: house Number of Children: 3 number of grandchildren: 1 Communication Needs: None current occupation: [employer] Current gender identity: male What is your relationship status?: Panel score (0-1 are the most socially isolated patients): 0 What type of physical activity do you participate in: walking Duration: 30-45 minutes/day Frequency: 5-6 times per week Special kyaw needs: No Seatbelt use: always Drive intox or ride w/intox [employer]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: No Working smoke detector in home: Yes Fire extinguisher in home: Yes Carbon monox detector in home: Yes Do you feel safe at home: Yes Do you feel safe in your relationship?: Yes Exam Const General: cooperative and no acute distress Orientation: alert, awake and oriented x3 HENMT Head: normal to inspection Ears: hearing grossly normal bilaterally and external ears normal General nose exam: external nose normal Face and sinus: normal facial exam Mouth: oral mucosae normal Teeth and gingiva: dentition normal Throat: posterior oropharynx normal Eyes General: appearance normal, both eyes and all related structures Eyelids: eyelids normal Pupils: PERRL EOM: EOM intact bilaterally Neck Neck: normal visual inspection Lymphatic: no lymphadenopathy noted Chest Chest: normal inspection of the chest Resp Effort & Inspection: normal respiratory effort and able to speak in complete sentences Auscultation: clear to auscultation bilaterally Cardio Rate: regular rate Rhythm: regular rhythm GI Inspection: normal to inspection Palpation: soft, not firm, no guarding, no hepatosplenomegaly, no masses and nontender Auscultation: normal bowel sounds Skin General skin exam: no rashes or lesions noted Neuro General: patient alert, patient awake, patient oriented x3, moves all extremities and no meningeal signs Cranial Nerves: CN's II-XI intact bilaterally Cognition: normal cognition Speech: speech normal Gait: normal gait Motor: muscle tone normal throughout, strength 5/5 throughout and no pronator drift Sensory Exam: no sensory deficits noted Extrem General: normal to inspection, full ROM and capillary refill normal Psych Appearance: grossly normal Mental Status: mental status grossly normal Speech and Movement: speech and movement normal Affect: normal affect Thought Process: normal Course Vital Signs Vital signs: Vital Signs Temperature 98.6 F 03/26/22 11:42 Pulse 109 H 03/26/22 11:42 Respiratory Rate 18 03/26/22 11:42 Blood Pressure 177/122 H 03/26/22 11:42 Pulse Oximetry 98 03/26/22 11:42 Temperature 98.6 F 03/26/22 11:42 Temperature Source Temporal Artery Scan 03/26/22 11:42 Pulse 109 H 03/26/22 11:42 Respiratory Rate 18 03/26/22 11:42 Respiratory Effort Non-Labored 03/26/22 12:19 Respiratory Depth Normal 03/26/22 12:19 Respiratory Pattern Normal 03/26/22 12:19 Blood Pressure 177/122 H 03/26/22 11:42 Blood Pressure Position Sitting 03/26/22 11:42 Pulse Oximetry 98 03/26/22 11:42 Oxygen Delivery Method Room Air 03/26/22 11:42 Oxygen Flow Rate 0 03/26/22 11:42 Pain Level 7 03/26/22 11:42 PAWSS Have you Been Recently Intoxicated or Drunk Within the Last 30 days?: Yes Have you Ever Experienced Previous Episodes of Alcohol Withdrawal?: No Have you ever Experienced Withdrawal Seizures?: No Have you ever Experienced Delirium Tremens(DT)s?: No Have you ever undergone Alcohol Rehabilitation Treatment (i.e, inpt ot outpatient treatment programs)?: No Have you ever Experienced Blackouts?: Yes Have you ever Combined Alcohol with other Downers within the last 90 days?: No Have you ever Combined Alcohol with any other Substance of Abuse during the last 90 days?: No Result: 2
[2022-03-26] MEDS: Normal Saline 1,000 ML 1000 ML IV (13:00)
--- NOTE | 2022-03-26 13:10 | DI.RAD_ITS ---
Exam(s) XR CHEST 2V PA LATERAL EXAM: XR CHEST 2V PA LATERAL CLINICAL HISTORY: confusion, fever, r/o pneumonia TECHNIQUE: COMPARISON: CR XR PORTABLE CHEST AP from 03/07/2021 FINDINGS: The heart is not enlarged. Lungs appear clear and well expanded. No pleural effusion seen. Note is made of multiple mediastinal vascular clips consistent with prior CABG surgery. IMPRESSION: No evidence of acute process. RADIATION DOSE DELIVERED: Total DLP
[2022-03-26 13:11] LABS: Source Nasal/Nares
[2022-03-26 13:13] LABS: Lactate 1.4 mmol/L (0.6-1.4)
--- NOTE | 2022-03-26 13:15 | DI.MRI_ITS ---
Exam(s) MR BRAIN WO EXAM: MR BRAIN WO CLINICAL HISTORY: possible R hemispheric infarction TECHNIQUE: Multiplanar multisequence MRI of the brain was performed. COMPARISON: No exams were available for comparison FINDINGS: The ventricular system is normal in appearance. There a are areas of right hemorrhagic signal abnormality noted on T2 weighted and FLAIR imaging whic h are predominantly cortical which involve portions of the right temporal, frontal, and parietal lobe s period a few scattered white matter signal abnormalities are also seen, most notably on DIR space i mages period. The orbital and temporal bone structures appear intact as does the pituitary. Diffusion weighted imaging shows areas of diffusion restriction corresponding to the signal abnormali ties seen on T2 weighted imaging and ADC imaging confirms that these are areas of acute or subacute i nfarction period. Susceptibility weighted imaging shows some signal void esparza in the region of the infarcted tissue co nsistent with microhemorrhage period. IMPRESSION: Norm the appearance is consistent with an acute or subacute infarction involving the right hemisphere with involved portions of the right temporal, frontal, and parietal cortex and subcortical region. Some signal void esparza is noted on susceptibility weighted imaging consistent with microhemorrhage at these sites. DATA REPOSITORY:
--- NOTE | 2022-03-26 13:15 | DI.MRI_ITS ---
Exam(s) MR ANGIO NECK WO EXAM: MR ANGIO NECK WO CLINICAL HISTORY: R hemispheric infarction on CT. TECHNIQUE: Multiplanar multisequence MRI was performed. COMPARISON: MR MR ANGIO NECK WO from 03/26/2022 MR MR ANGIO BRAIN WO from 03/26/2022 FINDINGS: MR angiography of the cervical region was performed utilizing 2D zqfh-ch-karczr and 3D greu-sc-kjpkgt imaging. There is moderate artifact in the region surveyed. Analysis of the raw data and MIP image s shows no convincing stenosis, aneurysm, or dissection of the common, internal, or external carotid arteries. Visualized vertebral arteries also appear grossly intact as does the basilar artery. IMPRESSION: Somewhat technically limited study shows no convincing hemodynamically significant finding in the car otid circulation in the cervical region. DATA REPOSITORY:
--- NOTE | 2022-03-26 13:15 | DI.MRI_ITS ---
Exam(s) MR ANGIO BRAIN WO EXAM: MR ANGIO BRAIN WO CLINICAL HISTORY: R hemispheric infarction on ct. TECHNIQUE: Multiplanar multisequence MRI was performed. COMPARISON: MR MR BRAIN WO from 03/26/2022 FINDINGS: MR angiography of the uyyjlp-ho-Dxbtph vasculature was performed utilizing 3D abqy-am-rfcamo imaging. There is right dominant vertebral circulation with unremarkable appearance of vertebral and basilar a rteries. Posterior cerebral arteries bilaterally and major branches appear intact. Evaluation of internal carotid arteries is somewhat limited due to artifact. No gross aneurysm, sten osis, or dissection seen. Anterior cerebral arteries and major branches appear intact with no evident aneurysm, stenosis, or di ssection. Middle cerebral arteries appear intact bilaterally with no evidence of aneurysm, stenosis, or dissect ion. There is a question of somewhat relative paucity of sylvian branches on the right as compared t o the left which could be associated with the patient's known right hemisphere infarct. IMPRESSION: No major vessel abnormality identified. Question of paucity of sylvian branches of right middle cere bral artery which could reflect occlusion of smaller branch vessels. DATA REPOSITORY:
[2022-03-26 13:18] LABS: Abs Immature Grans 0.04 10^3/uL (0.0-0.06); Absolute Basophil Count 0.04 10^3/uL (0.0-0.2); Absolute Eosinophil Count 0.08 10^3/uL (0.0-0.7); Absolute Lymphocyte Count 2.79 10^3/uL (1.2-3.4); Absolute Monocyte Count 0.79 10^3/uL (0.1-0.8); Absolute Neutrophil Count 7.23 10^3/uL (1.2-6.7); Basophils % 0.4; Eosinophils % 0.7; HCT 48.8 % (40.0-50.0); HGB 16.6 g/dL (13.5-17.5); Immature Grans % 0.4; Lymphocytes % 25.4; MCH 31.2 pg (27.0-33.0); MCV 92 fL (80-95); MPV 10.1 fL (8.0-11.0); Monocytes % 7.2; Neutrophils % 65.9; Platelet Count 359 10^3/uL (130-400); RBC 5.32 10^6/uL (4.36-5.78); RDW-SD 43.8 fL; WBC 10.97 10^3/uL (4.4-10.8)
[2022-03-26] MEDS: LORazepam 20 MG/10 ML VIAL IVP (13:30)
[2022-03-26 13:34] LABS: Ammonia < 10 umol/L (11-32)
[2022-03-26 13:37] LABS: ETHANOL BLOOD < 3.0 mg/dL (<10)
[2022-03-26 13:40] LABS: ALT 34 U/L (16-63); AST 22 U/L (15-37); Albumin 3.7 g/dL (3.4-5.0); Alkaline Phosphatase 64 U/L (46-116); Anion Gap 11.2 mmol/L (3-11); BUN 17 mg/dL (7-18); Bilirubin, Total 0.7 mg/dL (0.2-1.0); CO2 23.8 mmol/L (21.0-32.0); CREATININE 1.2 mg/dL (0.70-1.30); Calcium 8.8 mg/dL (8.5-10.1); Chloride 101 mmol/L (98-107); Estimated GFR 70.53 (mL/min/1.73m2); Glucose 108 mg/dL (74-106); Magnesium 1.7 mg/dL (1.8-2.4); Potassium 3.7 mmol/L (3.5-5.1); Sodium 136 mmol/L (136-145); Total Protein 7.4 g/dL (6.4-8.2); Troponin I < 50 ng/L (<or=60)
[2022-03-26 13:43] LABS: COVID-19 PCR Negative (Negative)
[2022-03-26] MEDS: ACETAMINOPHEN 1,000 MG/100 ML BTL 400 MG IVPB (13:50)
[2022-03-26 13:58] LABS: Salicylate < 2.8 mg/dL (<2.8)
[2022-03-26 14:26] LABS: Bilirubin Negative (Negative); Blood Negative (Negative); Clarity Clear (Clear); Glucose Negative (Negative); Ketones Trace mg/dL (Negative); Leukocyte Esterase Negative (Negative); Nitrite Negative (Negative)
[2022-03-26 14:32] LABS: *AMPHETAMINES SCREEN URINE Negative (Negative); *BARBITURATES SCREEN URINE Negative (Negative); *BENZODIAZEPINES SCREEN URINE Negative (Negative); Cannabinoids THC Negative (Negative); Cocaine Screen,Urine Negative (Negative); METHADONE URINE SCREEN Negative (Negative); OPIATES URINE SCREEN Negative (Negative)
[2022-03-26 14:45] LABS: Tricyclic Antidepressants Negative (Negative)
--- NOTE | 2022-03-26 16:30 | DI.CT_ITS ---
Exam(s) CT BRAIN NECK CTA EXAM: CT BRAIN NECK CTA CLINICAL HISTORY: R hemispheric infarction, assess for occlusion. TECHNIQUE: Imaging Protocol: Axial CT angiography was performed with multi-slice acquisition and mu lti-planar and/or 3D reconstructions. CONTRAST MATERIAL: Intravenous: Omnipaque 350 Contrast volume:structured data in ml COMPARISON: CT CT THORAX ABDOMEN CTA from 03/07/2021 MR MR ANGIO NECK WO from 03/26/2022 MR MR ANGIO BRAIN WO from 03/26/[address] HEAD WO from 03/26/2022 MR MR BRAIN WO from 03/26/2022 FINDINGS: CTA Neck W: Aortic arch anatomy: The aortic arch anatomy is conventional. Anterior circulation: Both common carotid arteries ascend with normal luminal diameters. There is minimal plaque at the ca rotid bifurcations and proximal internal carotid arteries with no evidence of significant stenosis on either side at these levels and the internal carotid arteries are demonstrated to be patent in the u pper neck and skull base-carotid canals. Posterior circulation: Both vertebral arteries originated conventional fashion off of the subclavian arteries. The right ve rtebral artery is dominant. The left vertebral artery is a thinner vessel. There does appear to be a stenosis at its origin off the left subclavian artery. The thin left vertebral artery terminates a t the base of the skull as posterior inferior cerebellar artery. The dominant right vertebral artery ascends with a luminal diameter of 3 millimeters and with no evidence of intraluminal thrombus nor d issection within the foramen transversarium. It is the main contributor to the formation of the basi lar artery at the skull base. CTA Brain W: Anterior circulation: Both internal carotid arteries are patent in the skull base-carotid canals as well as within the cave rnous sinuses. Supraclinoid aspects are patent. No aneurysms at these levels. Both A1 segments are patent as are the anterior cerebral arteries. There is no aneurysm at the level of the anterior com municating artery. Middle cerebral arteries are patent. No tight stenosis evident. No aneurysms. Posterior circulation: Basilar artery is developmentally thin vessel formed by contribution from by the dominant right verte bral artery. Basilar artery ascends with a luminal diameter of 2 millimeters. Distally it gives off superior cerebellar arteries bilaterally. Above this level it terminates as left posterior cerebral artery. The right posterior cerebral artery is predominantly supplied by posterior communicating ar shannon on the right side of the nuufvx-kz-Aaiunv. There is also a posterior communicating artery on th e left side of the tvvbmh-mb-Zzhagv. There is no aneurysm of the tip of the basilar artery nor elsew here in the fqrbcb-of-Hwaqnc. No evidence of obvious venous sinus thrombosis. CT BRAIN: Areas of abnormal hypodensity are noted in the territory of the right middle cerebral artery consiste nt with acute nonhemorrhagic infarction in this territory, as seen on MRI exhibiting restricted diffu claudia. IMPRESSION: 1. No significant narrowing of the carotid arteries in the neck. The left vertebral artery is develo pmentally small. The right vertebral artery is dominant and the main contributor to formation of the basilar artery. Basilar artery is small diameter due to developmental persistent circulation- posterior communicating arteries on both sides the cxjobe-bj-Zpfccs feeding the posterior cerebral ar teries. 2. No high-grade stenosis nor occlusion of main arteries in the brain including the right middle cer ebral artery which is the territory of infarction here. 3. No aneurysms evident. No obvious vascular malformations. See separate MRI report. RADIATION DOSE DELIVERED: 1,298.14mGy.cm Total DLP DATA REPOSITORY: All CT scans at this facility are submitted to the National Radiology Data Registry (NRDR) Dose Index Registry (DIR) with the [employer] (ACR). RADIATION OPTIMIZATION: All CT scans at this facility use at least one of these dose optimization te chniques: automated exposure control; mA and/or kV adjustment per patient size (includes targeted exa ms where dose is matched to clinical indication); or iterative reconstruction.
--- NOTE | 2022-03-26 17:17 | NCONE_ITS ---
Date of service: 03/26/22 Time of Service: 17:17 Assessment and Plan Assessment and plan (1) Acute cerebrovascular accident (CVA): Status: Acute (2) Right hemisphere, cerebral infarction: Status: Acute (3) Jose Alejandro-neglect of left side: Status: Acute Assessment and plan: Mr. Garcia is a 56 year-old, right-handed man admitted with a large right cerebellar ischemic stroke manifested by left jose alejandro-neglect and ?other cognitive changes for which etiology is currently unknown at present, but with no obvious large vessel disease seen at this time. Work-up: -TTE with bubble study -Telemetry -A1c -Lipid panel Medications: Treatment complicated due to appearance of microhemorrhage seen on MRI and his large ingestion of aspirin prior to arrival. Further, he has previous allergic reaction to clopidogrel. It is presumed that he therefore cannot be treated with ticagelor. Unfortunately, we do not have Aggrenox (ASA/dipyridamal) in stock. Thus: -aspirin 81mg daily for secondary stroke prevention (first dose tomorrow) -atrovastatin 80mg daily for secondary stroke prevention Other: -Close neurochecks -Allow permissive hypertension, goal 140-185 systolic -Physical therapy for gait training -Occupation therapy for activities of daily living History of Present Illness History of Present Illness Chief Complaint: stroke Narrative: Handedness: right. HPI: Mr. Garcia is a 56 year-old man with hypertension, hyperlipidemia, heart disease s/p CABG in 2020, ETOH abuse (reports drinking 6-10 beers daily), JOSEFA, and pre-diabetes. Mr. Garcia was brought to the ER by his family after increasing bizarre behavior and confusion, with onset thought to be 03/24/22. In the last 2 days he has lost the ability to manage his television and his cell phone asking family repeatedly to help him with them. Yesterday, he apparently drove to his daughter's house - unclear reason - without a shirt on - and apparently took an indirect route as he was unable to figure out how to get there the usual way. He has noted a headache for the last 1 day. He otherwise has not had any weakness or numbness. He has noted tremors. On 03/24/22 pm, he reported fevers and chills to his family with recurrent symptoms yesterday. He takes aspirin 81mg daily every morning. He took an additional 8x81mg this am for his headache prior to coming to the ER. He had a prior allergic reaction to clopidogrel (hives). Work-up: -CTH (03/26/22): subacute infarcts in the right frontal, temporal, and parietal lobes. I reviewed these images personally and this is my personal interpretation. -MRI brain w/o (03/26/22): acute/subacute right frontal, temporal, and parietal patchy infarcts. There is is evidence of microhemorrhage within the infarct beds. I reviewed these images personally and this is my personal interpretation. -MRA head/neck (03/26/22): No large vessel occlusions seen. ~50% R ICA stenosis and bulking plaque on L as well with <50% stenosis per my review. ?decreased R MCA distal branches. I reviewed these images personally and this is my personal interpretation. -CTA head/neck (03/26/22): no significant stenosis. Rads read distal L vertebral stenosis, but I don't see it as well. I reviewed these images personally and this is my personal interpretation. Review of Systems All systems reviewed & are unremarkable except as noted in HPI and below PFSH All Active Problems (Updated 03/26/22 @ 20:28 by Chuyita Gama MD) Jose Alejandro-neglect of left side (Acute) Acute cerebrovascular accident (CVA) (Acute) Right hemisphere, cerebral infarction (Acute) History of alcohol abuse (Acute) Familial hyperlipidemia (Chronic) Essential (primary) hypertension (Chronic) Tubular adenoma (Acute ~08/2020) 09/13/20 [facility]ag[facility] [place] of [place] cancer (Chronic) F Sessile colonic polyp (Acute) Diverticulosis (Acute) Obstructive sleep apnea (adult) (pediatric) (Chronic) 03/30/2020 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 Impaired fasting glucose (Acute) 5.7% 03/10/2020 Periodontal disease (Acute) Needs teeth extractions; underinsured; referred to [facility] 03/08/2020 History of tobacco abuse (Chronic 10/02/16) CAD (coronary artery disease) (Chronic 09/27/16) [facility] Cardiology Medical History Adenomatous polyp of ascending colon (12/16/16) sessile serrated Chondromalacia patellae, right knee Depression PTSD; sees counselor in [place] [facility] Sertral[facility] Hand paresthesia History of alcohol abuse (09/27/16) CA (myocardial infarction) (07/24/07) Age 41 Patellar maltracking Positive cardiac stress test s/p CABG x4 PTSD (post-traumatic stress disorder) [facility] Program 01/2019 Surgical History Cardiac Catheterization and Placement of Coronary Artery Stents (07/24/07) x2 placed 2006 Last seen in cardiology 03/2020 Colonoscopy - IV Sedation (12/13/16) H/O four vessel coronary artery bypass graft (03/13/21) [facility] 03/16/21 Family History Mother Essential hypertension CAD (coronary artery disease) Myocardial infarction x2 Stroke Father , Colon CA at age 62. Diabetes Type II CAD (coronary artery disease) Neoplasm Colon Sister Stroke Sister MS (multiple sclerosis) Sister Essential hypertension Hyperlipidemia TIA (transient ischemic attack) Social History Smoking/Tobacco Use Status: Current every day Tobacco Type: smokeless tobacco Quit status: has quit before Smoking risk assessment performed?: Yes Alcohol Intake: current Alcohol Intake frequency: 3 or more drinks per day Alcohol type: beer Drug use: Never Substance use type: does not use Adopted: No Caregiver/Support person: No Foster care: No Household members: none Housing: house Number of Children: 3 number of grandchildren: 1 Communication Needs: None 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 [employer] Current gender identity: male What is your relationship status?: Panel score (0-1 are the most socially isolated patients): 0 What type of physical activity do you participate in: walking Duration: 30-45 minutes/day Frequency: 5-6 times per week Special kyaw needs: No Seatbelt use: always Drive intox or ride w/intox 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: No Working smoke detector in home: Yes Fire extinguisher in home: Yes Carbon monox detector in home: Yes Do you feel safe at home: Yes Do you feel safe in your relationship?: Yes Visit Medication and Allergies Active Medications Generic Name Dose Route Start Last Admin Trade Name Freq PRN Reason Stop Dose Admin Sodium Chloride 500 mls @ 0 mls/hr 03/26/22 12:53 Saline 500ml Bag IV PRN PRN As Directed IV Miscellaneous Supplies 1 each 03/26/22 13:00 Iv Access IV DIRECTED SWAPNIL Sodium Chloride 0 ml 03/26/22 12:53 Normal Saline Flush 10 Ml Syr IVP PRN PRN Allergies clopidogrel bisulfate [From Plavix] Allergy (Intermediate, Verified 03/26/22 11:49) Hives Exam Narrative Exam Narrative: Physical Exam: Constitutional: Patient of apparent stated age, well nourished, well developed, no acute distress Neck: Supple, no meningismus CV: RRR, S1, S2, no murmur Resp: CTAB Abd: Soft, nontender, nondistended, +BS Extrem: no edema, clubbing or cyanosis; abrasion L knee and echimosis L toe Neuro: MS/Language/Speech: Alert, oriented, clear language (fluency and comprehension), no dysarthria CN: PERRL, EOMI, visual barragan full with L hemifield extinction to DSS, trigeminal sensation intact, no facial asymmetry, hearing intact, palate elevates symmetrically, tongue protrudes midline, SCM and trap strength intact Motor: Normal bulk and tone. FMM intact, no pronator drift. 5/5 strength in bilateral upper and lower extremities. No obvious UE postural tremor. Slight LUE action tremor. Sensation: Intact to light touch throughout with extinction to DSS in left hemibody Reflexes: 2+ DTRs, downgoing toes Coordination: Finger to nose performed without dysmetria Gait: not performed Results Last Vital Signs Temp 98.6 F 03/26/22 11:42 Pulse 75 03/26/22 16:16 Resp 13 03/26/22 16:20 BP 148/92 H 03/26/22 16:16 Pulse Ox 97 03/26/22 16:10 Labs Result diagrams: 03/26/22 12:15 03/26/22 12:54 Labs: Laboratory Results - last 24 hr 03/26/22 03/26/22 03/26/22 12:15 12:15 12:54 WBC 10.97 H RBC 5.32 Hgb 16.6 Hct 48.8 MCV 92 MCH 31.2 MCHC 34.0 RDW 13.0 Plt Count 359 MPV 10.1 Immature Gran % 0.4 Neutrophils % 65.9 Lymphocytes % 25.4 Monocytes % 7.2 Eosinophils % 0.7 Basophils % 0.4 Nucleated RBC % 0.0 Absolute Neutrophils 7.23 H Absolute Lymphocytes 2.79 Absolute Monocytes 0.79 Absolute Eosinophils 0.08 Absolute Basophils 0.04 VBG Lactate Sodium 136 Potassium 3.7 Chloride 101 Carbon Dioxide 23.8 Anion Gap 11.2 H BUN 17 Creatinine 1.2 Est GFR (CKD-EPI 2020) 70.53 Glucose 108 H Calcium 8.8 Magnesium 1.7 L Total Bilirubin 0.7 AST 22 ALT 34 Alkaline Phosphatase 64 Ammonia Troponin I < 50 Total Protein 7.4 Albumin 3.7 Urine Color Urine Clarity Urine pH Ur Specific [place] Urine Protein Urine Ketones Urine Blood Urine Nitrite Urine Bilirubin Urine Urobilinogen Ur Leukocyte Esterase Urine Glucose Salicylates < 2.8 Urine Opiates Screen Urine Methadone Screen Ur Barbiturates Screen Ur Tricyclics Screen Ur Amphetamines Screen U Benzodiazepines Scrn Urine Cocaine Screen Ur THC Screen Ethyl Alcohol COVID-19 Source SARS-CoV-2 (PCR) 03/26/22 03/26/22 03/26/22 12:54 12:54 12:54 WBC RBC Hgb Hct MCV MCH MCHC RDW Plt Count MPV Immature Gran % Neutrophils % Lymphocytes % Monocytes % Eosinophils % Basophils % Nucleated RBC % Absolute Neutrophils Absolute Lymphocytes Absolute Monocytes Absolute Eosinophils Absolute Basophils VBG Lactate 1.4 Sodium Potassium Chloride Carbon Dioxide Anion Gap BUN Creatinine Est GFR (CKD-EPI 2020) Glucose Calcium Magnesium Total Bilirubin AST ALT Alkaline Phosphatase Ammonia < 10 L Troponin I Total Protein Albumin Urine Color Urine Clarity Urine pH Ur Specific [place] Urine Protein Urine Ketones Urine Blood Urine Nitrite Urine Bilirubin Urine Urobilinogen Ur Leukocyte Esterase Urine Glucose Salicylates Urine Opiates Screen Urine Methadone Screen Ur Barbiturates Screen Ur Tricyclics Screen Ur Amphetamines Screen U Benzodiazepines Scrn Urine Cocaine Screen Ur THC Screen Ethyl Alcohol < 3.0 COVID-19 Source SARS-CoV-2 (PCR) 03/26/22 03/26/22 03/26/22 12:58 14:06 14:06 WBC RBC Hgb Hct MCV MCH MCHC RDW Plt Count MPV Immature Gran % Neutrophils % Lymphocytes % Monocytes % Eosinophils % Basophils % Nucleated RBC % Absolute Neutrophils Absolute Lymphocytes Absolute Monocytes Absolute Eosinophils Absolute Basophils VBG Lactate Sodium Potassium Chloride Carbon Dioxide Anion Gap BUN Creatinine Est GFR (CKD-EPI 2020) Glucose Calcium Magnesium Total Bilirubin AST ALT Alkaline Phosphatase Ammonia Troponin I Total Protein Albumin Urine Color Yellow Urine Clarity Clear Urine pH 7.0 Ur Specific [place] 1.020 Urine Protein Negative Urine Ketones Trace H Urine Blood Negative Urine Nitrite Negative Urine Bilirubin Negative Urine Urobilinogen 1.0 H Ur Leukocyte Esterase Negative Urine Glucose Negative Salicylates Urine Opiates Screen Negative Urine Methadone Screen Negative Ur Barbiturates Screen Negative Ur Tricyclics Screen Negative Ur Amphetamines Screen Negative U Benzodiazepines Scrn Negative Urine Cocaine Screen Negative Ur THC Screen Negative Ethyl Alcohol COVID-19 Source Nasal/Nares SARS-CoV-2 (PCR) Negative
[2022-03-26] MEDS: Omnipaque 350 MG/ML 100 ML BTL IV (17:28)
--- NOTE | 2022-03-26 17:55 | HPE_ITS ---
Date of service: 03/26/22 Time of Service: 17:55 Assessment and Plan Assessment and plan (1) Right hemisphere, cerebral infarction: Status: Acute Assessment and plan: subacute infarct involving large portion of right hemisphere including parietal, frontal and temporal w/ some subcortical areas as well. He has what appears to be some narrowing of the M2, M3 branch vessels of the right MCA. Because of his allergy to Plavix he will not be receiving DAPT but rather stay on ASA 81 mg daily. He has some microhemorrhages in the area of his infarcts. He tina be monitored on telemetry, check echocardiogram to evaluate for LV or LA thrombus given his cardiac hx and upon discharge he will need 30 day cardiac monitoring for evaluation of PAF (he is high risk d/t his cardiac hx and alcoholism). I will put him on high dose atorvastatin for now. Check lipid profile and glycohemoglobin A1c in the a.m. to assess for glycemic control. He has known pre-diabetes although his last A1c was 5.8% Neurology has already consulted on him and we will have S.L.P. and P.T. and O.T. see him tomorrow. Professional time spent interviewing and examining patient, discussion of goals of care with hospital team (care management, nursing and consulting professionals) was 45 minutes. (2) History of alcohol abuse: Status: Acute Assessment and plan: CIWA protocol and d/t his high risk for acute withdrawal, I have ordered low dose librium along w/ symptom triggered lorazepam per CIWA scores. (3) Familial hyperlipidemia: Status: Chronic Assessment and plan: as above (4) Essential (primary) hypertension: Status: Chronic Assessment and plan: will allow passive hypertension although d/t his micro hemorrhages need to keep his SBP below 200. (5) CAD (coronary artery disease): Status: Chronic Assessment and plan: no chest pain, dyspnea or palpitations. I did not see admission EKG. Will check EKG tonight. initial troponin I was normal. Qualifiers: Coronary Disease-Associated Artery/Lesion type: unspecified vessel or lesion type [place] vs. transplanted heart: [place] heart Associated angina: unspecified whether angina present Qualified Code(s): I25.10 - Atherosclerotic heart disease of [place] coronary artery without angina pectoris (6) Impaired fasting glucose: Status: Acute Assessment and plan: monitor glucose w/ goal of 140 to 180. Use sliding scale insulin novolog. check A1c in the morning. History of Present Illness History of Present Illness Chief Complaint: headache and confusion Narrative: 56-year-old male with a history of hypertension, hyperlipidemia, coronary artery disease with CABG and daily alcohol abuse who presents with confusion, feeling feverish, shaking, headache and problems with coordination for the past 2 days. MRI brain demonstrated large right hemispheric CVA involving right temporal, parietal, and frontal cortex and subcortical regions along w/ microhemorrhage. MRA brain did not demonstrate any major vessel occclusion but demonstrated paucity of [place] branches of R. MCA. MRA of cervical vessels was compromised by motion artifact but no gross occlusions. CTA of head and neck was performed but results are pending. Patient has already taken 9 tabs of ASA 81 mg each. Because he has an allergy to Plavix and d/t cross sensitivity to Brill[place], we are going to treat him w/ aspirin 81 mg daily starting tomorrow per Dr. Gama, neurologist. Patient will be admitted for further evaluation and treatment of his CVA including completion of diagnostic imaging (echo), telemetry monitoring for 24 to 48hr and P.T., O.T. and S.T. consult. Also because he is a regular drinker of alcohol (6 to 10 beers per day) he will be monitored for alcohol withdrawal. Patient states that he never goes w/out his beers; he has no hx of withdrawal seizures. Review of Systems All systems reviewed & are unremarkable except as noted in HPI and below Constitutional Constitutional: Reports as per HPI, Reports chills, Reports fatigue and Reports headache(s) Eyes Eyes: Reports system reviewed and no additional complaints, except as documented, Denies blind spots, Denies blurry vision, Denies change in vision and Denies loss of vision ENT Ears, Nose, Mouth, and Throat: Reports headache(s) and Reports disequilibrium Cardiovascular Cardiovascular: Reports system reviewed and no additional complaints, except as documented, Denies chest pain, Denies syncope, Denies irregular heart rhythm, Denies palpitations and Denies dyspnea Respiratory Respiratory: Denies dyspnea Gastrointestinal Gastrointestinal: Reports system reviewed and no additional complaints, except as documented Genitourinary Genitourinary: Reports system reviewed and no additional complaints, except as documented Musculoskeletal Musculoskeletal: Reports system reviewed and no additional complaints, except as documented, Reports abnormal gait (unbalanced gait) and Denies tingling Integumentary/Breasts Skin/Breast: Reports system reviewed and no additional complaints, except as documented Neurologic Neurologic: Reports as per HPI, Denies abnormal speech, Reports abnormal gait (unbalanced gait), Reports confusion, Denies syncope, Reports headache(s), Reports lack of coordination, Denies loss of vision, Denies tingling and Reports disequilibrium Psychiatric Psychiatric: Reports system reviewed and no additional complaints, except as documented and Reports confusion Endocrine Endocrine: Reports system reviewed and no additional complaints, except as documented, Reports fatigue and Denies palpitations Hematologic/Lymphatic Hematologic/Lymphatic: Reports system reviewed and no additional complaints, except as documented Allergic/Immunologic Allergic/Immunologic: Reports system reviewed and no additional complaints, except as documented PFSH All Active Problems Acute cerebrovascular accident (CVA) (Acute) Right hemisphere, cerebral infarction (Acute) History of alcohol abuse (Acute) Familial hyperlipidemia (Chronic) Essential (primary) hypertension (Chronic) Tubular adenoma (Acute ~08/2020) 09/13/20 Fragments of tubulovillous adenoma with [facility]err[facility] Family history of colorectal cancer (Chronic) F Sessile colonic polyp (Acute) Diverticulosis (Acute) Obstructive sleep apnea (adult) (pediatric) (Chronic) 03/30/2020 Anuja Vicente [employer] CPAP Impaired fasting glucose (Acute) 5.7% 03/10/2020 Periodontal disease (Acute) Needs teeth extractions; underinsured; referred to [facility] 03/08/2020 History of tobacco abuse (Chronic 10/02/16) CAD (coronary artery disease) (Chronic 09/27/16) [facility] Cardiology Medical History Adenomatous polyp of ascending colon (12/16/16) sessile serrated Chondromalacia patellae, right knee Depression PTSD; sees counselor in [place] [facility] Sertraline Hand paresthesia History of alcohol abuse (09/27/16) PA (myocardial infarction) (07/24/07) Age 41 Patellar maltracking Positive cardiac stress test s/p CABG x4 PTSD (post-traumatic stress disorder) [facility] Surgical History Cardiac Catheterization and Placement of Coronary Artery Stents (07/24/07) x2 placed 2006 Last seen in cardiology 03/2020 Colonoscopy - IV Sedation (12/13/16) H/O four vessel coronary artery bypass graft (03/13/21) [facility] 03/16/21 Family History Mother Essential hypertension CAD (coronary artery disease) Myocardial infarction x2 Stroke Father , Colon CA at age 62. Diabetes Type II CAD (coronary artery disease) Neoplasm Colon Sister Stroke Sister MS (multiple sclerosis) Sister Essential hypertension Hyperlipidemia TIA (transient ischemic attack) Social History Smoking/Tobacco Use Status: Current every day Tobacco Type: smokeless tobacco Quit status: has quit before Smoking risk assessment performed?: Yes Alcohol Intake: current Alcohol Intake frequency: 3 or more drinks per day Alcohol type: beer Drug use: Never Substance use type: does not use Adopted: No Caregiver/Support person: No Foster care: No Household members: none Housing: house Number of Children: 3 number of grandchildren: 1 Communication Needs: None 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 Current gender identity: male What is your relationship status?: Panel score (0-1 are the most socially isolated patients): 0 What type of physical activity do you participate in: walking Duration: 30-45 minutes/day Frequency: 5-6 times per week Special kyaw needs: No Seatbelt use: always Drive intox or ride w/intox 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: No Working smoke detector in home: Yes Fire extinguisher in home: Yes Carbon monox detector in home: Yes Do you feel safe at home: Yes Do you feel safe in your relationship?: Yes Meds Allergies and Home Medications Allergies Allergy/AdvReac Type Severity Reaction Status Date / Time clopidogrel bisulfate Allergy Intermediate Hives Verified 03/26/22 11:49 [From Plavix] Home Medications Medication Instructions Recorded Confirmed Type sertraline 50 mg tablet 50 mg PO DAILY #90 tabs 07/10/20 03/26/22 Rx albuterol sulfate 90 mcg/actuation 2 puff inhalation Q4H PRN 08/28/20 03/26/22 Rx aerosol inhaler (Ventolin HFA) shortness of breath or wheezing #8.5 grams acetaminophen 500 mg tablet 500 mg PO Q6H PRN 03/20/21 03/26/22 History aspirin 81 mg tablet,delayed 81 mg PO DAILY 03/20/21 03/26/22 History release (Adult Low Dose Aspirin) ezetimibe 10 mg tablet (Zetia) 10 mg PO DAILY #90 tabs 04/17/21 03/26/22 Rx atorvastatin 40 mg tablet 40 mg PO QHS #90 tabs 07/04/21 03/26/22 Rx metoprolol tartrate 25 mg tablet 25 mg PO BID #180 tabs 07/04/21 03/26/22 Rx Exam Narrative Exam Narrative: Alert and oriented x4 HEENT: Atraumatic normocephalic, pupils equally round reactive to light and accommodation, extraocular motion intact, fundi without papilledema, nares moist and patent without exudate or bleeding, oropharynx noninjected without e xudate, teeth in fair repair Neck: Supple, nontender, without thyromegaly or lymphadenopathy or JVD. Normal carotid pulses without bruits Lungs: Clear to auscultation and percussion Heart: Regular rate and rhythm without murmur rub or gallop. Normal apical impulse Abdomen: Nondistended, normal bowel sounds, nontender to palpation or percussion, no organomegaly, no bruits, no palpable masses Genitalia and rectal exam: Deferred Extremities: Normal range of motion with normal strength. No peripheral cyanosis or edema. Normal pulses Neurologic: Cranial nerves II through XII grossly within normal limits. Normal facial mimetic muscle movement. Normal movement of his palate and tongue. Grossly normal swallowing to water. Normal strength and sensation over the face trunk and extremities. DTRs within normal limits. No tremors or asterixis. Results Labs Result diagrams: 03/26/22 12:15 03/26/22 12:54 Labs: Laboratory Results - last 24 hr 03/26/22 03/26/22 03/26/22 12:15 12:15 12:54 WBC 10.97 H RBC 5.32 Hgb 16.6 Hct 48.8 MCV 92 MCH 31.2 MCHC 34.0 RDW 13.0 Plt Count 359 MPV 10.1 Immature Gran % 0.4 Neutrophils % 65.9 Lymphocytes % 25.4 Monocytes % 7.2 Eosinophils % 0.7 Basophils % 0.4 Nucleated RBC % 0.0 Absolute Neutrophils 7.23 H Absolute Lymphocytes 2.79 Absolute Monocytes 0.79 Absolute Eosinophils 0.08 Absolute Basophils 0.04 VBG Lactate Sodium 136 Potassium 3.7 Chloride 101 Carbon Dioxide 23.8 Anion Gap 11.2 H BUN 17 Creatinine 1.2 Est GFR (CKD-EPI 2020) 70.53 Glucose 108 H Calcium 8.8 Magnesium 1.7 L Total Bilirubin 0.7 AST 22 ALT 34 Alkaline Phosphatase 64 Ammonia Troponin I < 50 Total Protein 7.4 Albumin 3.7 Urine Color Urine Clarity Urine pH Ur Specific [place] Urine Protein Urine Ketones Urine Blood Urine Nitrite Urine Bilirubin Urine Urobilinogen Ur Leukocyte Esterase Urine Glucose Salicylates < 2.8 Urine Opiates Screen Urine Methadone Screen Ur Barbiturates Screen Ur Tricyclics Screen Ur Amphetamines Screen U Benzodiazepines Scrn Urine Cocaine Screen Ur THC Screen Ethyl Alcohol COVID-19 Source SARS-CoV-2 (PCR) 03/26/22 03/26/22 03/26/22 12:54 12:54 12:54 WBC RBC Hgb Hct MCV MCH MCHC RDW Plt Count MPV Immature Gran % Neutrophils % Lymphocytes % Monocytes % Eosinophils % Basophils % Nucleated RBC % Absolute Neutrophils Absolute Lymphocytes Absolute Monocytes Absolute Eosinophils Absolute Basophils VBG Lactate 1.4 Sodium Potassium Chloride Carbon Dioxide Anion Gap BUN Creatinine Est GFR (CKD-EPI 2020) Glucose Calcium Magnesium Total Bilirubin AST ALT Alkaline Phosphatase Ammonia < 10 L Troponin I Total Protein Albumin Urine Color Urine Clarity Urine pH Ur Specific [place] Urine Protein Urine Ketones Urine Blood Urine Nitrite Urine Bilirubin Urine Urobilinogen Ur Leukocyte Esterase Urine Glucose Salicylates Urine Opiates Screen Urine Methadone Screen Ur Barbiturates Screen Ur Tricyclics Screen Ur Amphetamines Screen U Benzodiazepines Scrn Urine Cocaine Screen Ur THC Screen Ethyl Alcohol < 3.0 COVID-19 Source SARS-CoV-2 (PCR) 03/26/22 03/26/22 03/26/22 12:58 14:06 14:06 WBC RBC Hgb Hct MCV MCH MCHC RDW Plt Count MPV Immature Gran % Neutrophils % Lymphocytes % Monocytes % Eosinophils % Basophils % Nucleated RBC % Absolute Neutrophils Absolute Lymphocytes Absolute Monocytes Absolute Eosinophils Absolute Basophils VBG Lactate Sodium Potassium Chloride Carbon Dioxide Anion Gap BUN Creatinine Est GFR (CKD-EPI 2020) Glucose Calcium Magnesium Total Bilirubin AST ALT Alkaline Phosphatase Ammonia Troponin I Total Protein Albumin Urine Color Yellow Urine Clarity Clear Urine pH 7.0 Ur Specific [place] 1.020 Urine Protein Negative Urine Ketones Trace H Urine Blood Negative Urine Nitrite Negative Urine Bilirubin Negative Urine Urobilinogen 1.0 H Ur Leukocyte Esterase Negative Urine Glucose Negative Salicylates Urine Opiates Screen Negative Urine Methadone Screen Negative Ur Barbiturates Screen Negative Ur Tricyclics Screen Negative Ur Amphetamines Screen Negative U Benzodiazepines Scrn Negative Urine Cocaine Screen Negative Ur THC Screen Negative Ethyl Alcohol COVID-19 Source Nasal/Nares SARS-CoV-2 (PCR) Negative Last Vital Signs Temp 37.0 C 03/26/22 11:42 Pulse 78 03/26/22 16:46 Resp 9 L 03/26/22 17:30 BP 154/105 H 03/26/22 16:46 Pulse Ox 98 03/26/22 17:40 PAWSS Have you Been Recently Intoxicated or Drunk Within the Last 30 days?: Yes Have you Ever Experienced Previous Episodes of Alcohol Withdrawal?: No Have you ever Experienced Withdrawal Seizures?: No Have you ever Experienced Delirium Tremens(DT)s?: No Have you ever undergone Alcohol Rehabilitation Treatment (i.e, inpt ot outpatient treatment programs)?: No Have you ever Experienced Blackouts?: Yes Have you ever Combined Alcohol with other Downers within the last 90 days?: No Have you ever Combined Alcohol with any other Substance of Abuse during the last 90 days?: No Result: 2
--- NOTE | 2022-03-26 18:06 | DI.VRAD_ITS ---
PROCEDURE INFORMATION: Exam: CTA Head With Contrast, Arteriography Exam date and time: 03/26/2022 5:03 PM Age: 56 years old Clinical indication: Other: R hemispheric infarction, assess for occlusion TECHNIQUE: Imaging protocol: Computed tomographic angiography of the head with contrast. Exam focused on the arteries. 3D rendering (Not supervised by radiologist): MIP and/or 3D reconstructed images were created by the technologist. Radiation optimization: All CT scans at this facility use at least one of these dose optimization techniques: automated exposure control; mA and/or kV adjustment per patient size (includes targeted exams where dose is matched to clinical indication); or iterative reconstruction. Contrast material: OMNIPAQUE 350; Contrast volume: 85 ml; Contrast route: INTRAVENOUS (IV); COMPARISON: 1. MR ANGIO BRAIN WO 03/26/2022 2:56 PM 2. MR BRAIN WO 03/26/2022 2:56 PM FINDINGS: ANTERIOR CIRCULATION: Right internal carotid artery: Predominantly calcified plaque of the intradural right internal carotid artery, with moderate stenosis of the intradural segment. No evidence of aneurysm or occlusion. Right middle cerebral artery: The right M1 segment is patent. There is heterogeneous moderate narrowing of multiple right M2/M3 vessels without definite tessy vessel occlusion appreciated. Right anterior cerebral artery: Unremarkable. No occlusion or significant stenosis. No aneurysm. Left internal carotid artery: Calcified plaque of the cavernous and intradural left internal carotid artery, with moderate stenosis at the anterior genu and proximal intradural segment. No evidence of aneurysm or occlusion. Left middle cerebral artery: Unremarkable. No occlusion or significant stenosis. No aneurysm. Left anterior cerebral artery: Unremarkable. No occlusion or significant stenosis. No aneurysm. POSTERIOR CIRCULATION: Right vertebral artery: Unremarkable. No occlusion or significant stenosis. No aneurysm. Left vertebral artery: The left vertebral artery is hypoplastic, a normal variant, functionally terminating in a left PICA without significant contribution to the vertebrobasilar junction. Basilar artery: The basilar artery is diminutive. No significant stenosis or aneurysm. Right posterior cerebral artery: Persistent origin of the right posterior cerebral artery. No evidence of aneurysm or occlusion. Left posterior cerebral artery: Persistent origin of the left posterior cerebral artery with diminutive left P1 segment. No evidence of aneurysm or occlusion. Veins: No evidence of venous sinus thrombosis. Brain: Patchy infarction of the right MCA territory is appreciated, essentially unchanged from the prior MRI. Cerebral ventricles: No ventriculomegaly. Paranasal sinuses: Mucous retention cyst of the left maxillary sinus. Mild mucosal thickening of the anterior ethmoid air cells. Bones/joints: Unremarkable. No acute fracture. Soft tissues: Unremarkable. IMPRESSION: 1. No large vessel occlusion is appreciated. 2. Right MCA territory infarction as seen on the recent MRI examination, grossly unchanged. 3. As described on the MR angiogram, there is heterogeneous moderate narrowing of multiple right M2/M3 vessels which may represent sequela of mass effect from adjacent edema versus recanalization following thrombosis. No definite arterial occlusion is appreciated. 4. Moderate stenosis of the intracranial internal carotid arteries. PROCEDURE INFORMATION: Exam: CTA Neck With Contrast Exam date and time: 03/26/2022 5:03 PM Age: 56 years old Clinical indication: Other: R hemispheric infarction, assess for occlusion TECHNIQUE: Imaging protocol: Computed tomographic angiography of the neck with contrast. 3D rendering (Not supervised by radiologist): MIP and/or 3D reconstructed images were created by the technologist. Radiation optimization: All CT scans at this facility use at least one of these dose optimization techniques: automated exposure control; mA and/or kV adjustment per patient size (includes targeted exams where dose is matched to clinical indication); or iterative reconstruction. Contrast material: OMNIPAQUE 350; Contrast volume: 85 ml; Contrast route: INTRAVENOUS (IV); COMPARISON: MR ANGIO NECK WO 03/26/2022 2:56 PM FINDINGS: Right common carotid artery: No stenosis. No dissection or occlusion. Right internal carotid artery: Mixed calcified and atheromatous plaque at the right internal carotid artery origin. No significant stenosis (0% by NASCET criteria). No aneurysm or dissection. Mild distal vessel tortuosity. Right external carotid artery: No occlusion or stenosis of the origin. Left common carotid artery: No stenosis. No dissection or occlusion. Left internal carotid artery: Mixed calcified and atheromatous plaque at the left internal carotid artery origin. No significant stenosis (0% by NASCET criteria). No aneurysm or dissection. Mild distal vessel tortuosity. Left external carotid artery: No occlusion or stenosis of the origin. Right vertebral artery: Limited evaluation of the right vertebral artery origin secondary to adjacent dense intravenous contrast. There does not appear to be high-grade stenosis. Minimal atherosclerosis of the right V1 segment. No significant stenosis. No evidence of aneurysm or dissection. Left vertebral artery: Moderate to severe stenosis at the left vertebral artery origin. The left vertebral artery is hypoplastic, a normal variant. The remainder of the left vertebral artery is unremarkable in course and caliber. Aorta: Calcification at the aortic annulus. Mild atherosclerosis at the aortic arch and great vessel origins. Soft tissues: Normal. No significant soft tissue swelling. Bones/joints: Status post median sternotomy. Coronary arteries: The patient is status post coronary artery bypass graft. IMPRESSION: 1. No significant stenosis at the bilateral internal carotid artery origins. 2. Likely moderate to severe stenosis at the hypoplastic left vertebral artery origin. REFERENCES: NASCET CRITERIA. The degree of stenosis in the cervical segment of the internal carotid artery is based on NASCET criteria. Normal is no stenosis. Mild is less than 50% stenosis. Moderate is 50-69% stenosis. Severe is 70% to 99% stenosis. Total occlusion is no detectable patent lumen. Dictated and Authenticated by: Jefry Tesfaye MD. Ordering:JAISON Aguayo MD
[2022-03-26] MEDS: Metoprolol 12.5 MG TAB 25 MG PO (19:28)
[2022-03-26] MEDS: Enoxaparin 40 MG/0.4 ML SYR SC (19:28)
[2022-03-26] MEDS: Folic Acid 1 MG TAB PO (19:28)
[2022-03-26] MEDS: chlordiazePOXIDE 25 MG CAP PO (19:28)
[2022-03-26] MEDS: Atorvastatin 40 MG TAB 80 MG PO (19:29)
[2022-03-26] MEDS: THIAMINE 100 MG in Normal Saline 100 ML 200 MG IVPB (19:44)
[2022-03-27] VITALS (11 sets, daily range): BP systolic 95–126; BP diastolic 58–84; PULSE 54–79; RESP 12–18; TEMP 36.3–37; O2SAT 96–98
--- NOTE | 2022-03-27 | DI.RAD_ITS ---
Exam(s) RF MODIFIED SPEECH BA SWALLOW TECHNIQUE: Modified barium swallow was performed in conjunction with speech pathology. CONTRAST MATERIAL: Oral barium Oral water soluble contrast was administered. COMPARISON: No exams were available for comparison FINDINGS: Fluoroscopy was provided during modified barium swallow performed our department in conjunction with the speech therapist. IMPRESSION: No evidence of aspiration or penetration. Radiopaque barium pill passed quickly into the stomach with no holdup in the esophagus RADIATION DOSE DELIVERED: donato Valenzuela=24.2 mGy
[2022-03-27 07:17] LABS: Abs Immature Grans 0.02 10^3/uL (0.0-0.06); Absolute Basophil Count 0.05 10^3/uL (0.0-0.2); Absolute Eosinophil Count 0.17 10^3/uL (0.0-0.7); Absolute Lymphocyte Count 2.56 10^3/uL (1.2-3.4); Absolute Monocyte Count 0.75 10^3/uL (0.1-0.8); Absolute Neutrophil Count 4.22 10^3/uL (1.2-6.7); Basophils % 0.6; Eosinophils % 2.2; HCT 44.7 % (40.0-50.0); HGB 15.4 g/dL (13.5-17.5); Immature Grans % 0.3; Lymphocytes % 32.9; MCH 31.1 pg (27.0-33.0); MCHC 34.5 % (32.0-36.0); MCV 90 fL (80-95); MPV 9.7 fL (8.0-11.0); Monocytes % 9.7; Neutrophils % 54.3; Platelet Count 272 10^3/uL (130-400); RBC 4.95 10^6/uL (4.36-5.78); RDW 13.1 % (11.8-14.1); RDW-SD 43.1 fL; WBC 7.77 10^3/uL (4.4-10.8)
[2022-03-27 07:28] LABS: Anion Gap 6.7 mmol/L (3-11); BUN 18 mg/dL (7-18); CO2 24.3 mmol/L (21.0-32.0); CREATININE 1.1 mg/dL (0.70-1.30); Calcium 8.7 mg/dL (8.5-10.1); Chloride 103 mmol/L (98-107); Glucose 97 mg/dL (74-106); Potassium 3.9 mmol/L (3.5-5.1); Sodium 134 mmol/L (136-145)
[2022-03-27 07:34] LABS: ALT 30 U/L (16-63); AST 17 U/L (15-37); Albumin 3.4 g/dL (3.4-5.0); Alkaline Phosphatase 60 U/L (46-116); Bilirubin, Direct 0.1 mg/dL (0.0-0.2); Bilirubin, Total 0.6 mg/dL (0.2-1.0); PHOSPHORUS 3.8 mg/dL (2.6-4.7); Total Protein 6.9 g/dL (6.4-8.2)
--- NOTE | 2022-03-27 07:34 | OT.INIE ---
Occupational Therapy Notes Inpatient Occupational Therapy Evaluation Date: 03/27/22 Referring Doctor:Wayne Holman MD OT Orders: Urgent Precautions: s/p large right hemispheric CVA, fall, standard, full PATIENT PROFILE/ADMITTING DIAGNOSIS: Pt is a 56 year old male who was admitted to Med Surg through the ED with clinical findings of a acute CVA, barb neglect of (L) sidee, (R) hemisphere cerebral infarction. Past Medical History: All Active Problems? Acute cerebrovascular accident (CVA) (Acute) Right hemisphere, cerebral infarction (Acute) History of alcohol abuse (Acute) Familial hyperlipidemia (Chronic) Essential (primary) hypertension (Chronic) Tubular adenoma (Acute ~08/2020) 09/13/20 Fragments of tubulovillous adenoma with serrated featuresDhmcFamily history of colorectal cancer (Chronic) FSessile colonic polyp (Acute) Diverticulosis (Acute) Obstructive sleep apnea (adult) (pediatric) (Chronic) 03/30/2020 Anuja Vicente BIOMEDICAL EQUIPMENT TECHNICIAN CPAPImpaired fasting glucose (Acute) 5.7% 03/10/2020Periodontal disease (Acute) Needs teeth extractions; underinsured; referred to [facility] 03/08/2020History of tobacco abuse (Chronic 10/02/16) CAD (coronary artery disease) (Chronic 09/27/16) [facility] Cardiology Medical History? 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 Cardiac Catheterization and Placement of Coronary Artery Stents (07/24/07) x2 placed 2006 Last seen in cardiology 03/2020Colonoscopy - IV Sedation (12/13/16) H/O four vessel coronary artery bypass graft (03/13/21) [facility] 03/16/21 Social History/Home Situation: Pt lives in a private home on his own. 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 He is (I) at his baseline level of function in terms of his ADL/IADL routines. He is able to drive (I) and does not use any type of assistive device. He is (I) with functional mobility and notes that he has no services in his home prior to admission. He is very close with his daughter who he has good contact with. He has two grandchildren as well. Equipment owned/DME: None SUBJECTIVE: Pt was lying in bed when OT arrived, he is agreeable to OT session and notes that he is tired and is slightly confused on what events have taken place. He states that he doesn't remember it well but Friday he drove to his Daughter Anuja's home without a shirt on to see her. He states that friday he started to notice that he wasn't able to use his phone well. He states that he called his daughter who came to see him. He states that once she left he called her again and told her something was wrong. He indicates to OT that right now he feels okay. He has no indication of limitations with his (B) UE but states that his fatigue is whats bothersome to him. OBJECTIVE: General Observation: Pleasant, IV placement in (R) antecubital fossa area, (L) UE in forearm area, no facial droop, no limitations in (B) UE movements Mental Status: A&Ox3 Pain: no c/o pain, pt does state that he has a headache ROM: RUE AROM WFL L UE AROM WFL STRENGTH: RUE 5/5 throughout LUE 5/5 throughout SENSATION: intact (B) FUNCTIONAL MOBILITY/ADLS: Transfers without (A) device Supine-sit (I) Sit-supine (I) Sit-Stand (I) Stand-sit (I) *Pt notes that his (B) legs feel tired when he stands up. Therapeutic Exercise [id number]: OT educated and trained pt in UE strengthening for (B) UE including red theraband pull, bicep curls with 3# and grasp and pinch of foam cubes. OT educated and trained pt in using his (L) throughout his ADLS and will continue to monitor this. BATHING Pt states that he is too tired to perform at this time. He is fatigued and wants to lay down for a while before performing. DRESSING sitting on side of the bed Dressing LE (I) don and doffing (B) socks with good technique. (L) leg placement on to (R) he does need to readjust to perform but makes this correction (I). TOILETING NT during assessment however pt states that he is walking to toilet (I) to use as needed. EATING sitting on side of the bed he was (I) with drinking liquids and hand to mouth with ideal technique. BALANCE: Static sitting Normal Dynamic Sitting Normal Static Standing Good SPECIAL TESTS: Daily Activity Limitations Standardized Measure [facility] AM -PAC ?6 clicks? Daily Activity Inpatient Short Form: Raw score: 22 Standardized score: 47.10 CMS score: 25.80% INFORMED CONSENT/EDUCATION: Pt instructed in purpose of OT Consult and plan of care. ASSESSMENT: Patient is a 56-year-old male referred to occupational therapy services with diagnosis of Acute CVA, (R) hemisphere cerebral infarction, barb neglect of (L) side, essential HTN, hx if alcohol abuse. Patient presents with clinical signs and symptoms consistent with dx, as demonstrated by the following impairment level findings/functional limitations: decreased fine motor control of (L) UE which he can perform with increased performance time, impaired functional activity tolerance, increased fatigue which is limiting pts (I), pt utilizes his (R) UE more which is his dominant side, he is receptive to use of his (L) but requires vc throughout, decreased performance of standing ADLs during assessment due to fatigue. AMPAC score 22 Patient is assessed as a Low 06438 complexity based on the following: History: see above Examination: see functional limitations as noted above Presentation: evolving Decision Making: AMPAC score 22 GOALS Goals x1 week 1. Transfers (I) while carrying objects in his (L) UE 2. Dressing sitting on side of the bed (I) 3. Bathing standing at sink (I) 4. Toileting on toilet (I) 5. Eating (I) PLAN OF CARE/TREATMENT PLAN: 1x/day, 5 days/ week x 1week Initiate Occupational Therapy Services for bathing, dressing, grooming, toileting, eating, transfer training. DISCHARGE RECOMMENDATIONS Home when medically cleared per MD. TREATMENT TIME/MINUTES/CODES 19014, 78416, 25 minutes Ainsley Bernabe OTR/[facility]
[2022-03-27 07:52] LABS: Calculated LDL 213 mg/dL (<100); Cholesterol 294 mg/dL (<200); HDL Cholesterol 49 mg/dL (40-60); Triglyceride 161 mg/dL (<150)
[2022-03-27 07:53] LABS: Hemoglobin A1C 5.5 % (<5.7)
[2022-03-27] MEDS: Thiamine 100 MG TAB PO (08:01)
[2022-03-27] MEDS: chlordiazePOXIDE 25 MG CAP PO ×3 (08:01→20:05)
[2022-03-27] MEDS: Multivitamin TAB 1 TAB PO (08:01)
[2022-03-27] MEDS: Acetaminophen 325 MG TAB PO (08:01)
[2022-03-27] MEDS: Ezetimibe 10 MG TAB PO (08:01)
[2022-03-27] MEDS: Folic Acid 1 MG TAB PO (08:01)
[2022-03-27] MEDS: Sertraline 50 MG TAB PO (08:01)
[2022-03-27] MEDS: Aspirin E.C. 81 MG TABEC PO (08:01)
[2022-03-27] MEDS: Metoprolol 12.5 MG TAB 25 MG PO (08:01)
--- NOTE | 2022-03-27 10:00 | PT.INIE ---
Date of service: 03/27/22 Time of Service: 10:00 PT Notes Visit Reasons: Cerebrovascular accident Physical Therapy Inpatient Initial Evaluation Date: 03/27/2022 Referring Doctor: Wayne Cotter MD PT Orders: PT CONSULT: Fall safety assessment Precautions: Fall. Standard. Activity as tolerated. Patient Profile/Admitting Diagnosis: Roger is a 56-year-old male who presented to the ED on 03/26/2022 with due to bizarre behavior and confusion as reported by family. Patient is diagnosed with right hemisphere cerebral infarction and hemineglect of the left side. PMHX: All Active Problems? Acute cerebrovascular accident (CVA) (Acute) Right hemisphere, cerebral infarction (Acute) History of alcohol abuse (Acute) Familial hyperlipidemia (Chronic) Essential (primary) hypertension (Chronic) Tubular adenoma (Acute ~08/2020) 09/13/20 Fragments of tubulovillous adenoma with serrated features [facility] Family history of colorectal cancer (Chronic) FSessile colonic polyp (Acute) Diverticulosis (Acute) Obstructive sleep apnea (adult) (pediatric) (Chronic) 03/30/2020 Anuja Vicente HEAD FILTER TANK TENDER HELPER CPAP Impaired fasting glucose (Acute) 5.7% 03/10/2020 Periodontal disease (Acute) Needs teeth extractions; underinsured; referred to [facility] 03/08/2020 History of tobacco abuse (Chronic 10/02/16) CAD (coronary artery disease) (Chronic 09/27/16) [facility] Cardiology Medical History? 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 Cardiac Catheterization and Placement of Coronary Artery Stents (07/24/07) x2 placed 2006 Last seen in cardiology 03/2020 Colonoscopy - IV Sedation (12/13/16) H/O four vessel coronary artery bypass graft (03/13/21) [facility] 03/16/21 Social History/Home Situation: Lives alone in a private home with 4 steps to enter with rails on B sides. Independent with all aspects of ADLs prior to admission. Son, daughter, and sister are good support. 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 Equipment Owned/DME: None Subjective: Agreeable to PT consult. States the he feels not at baseline strength-katz. Does not feel as stable as he used to. Feels a little clumsy. Denies headache at time of evaluation but states that he did report having a headache to Nurse [facility] earlier this morning. Denies chest pain and lightheadedness. Objective: General Observation: Seated at edge of bed. Telemetry monitoring in place. Mental Status: Alert and oriented as to person, place, time, and purpose . Appears to have some delayed execution of task involving the L UE. Pain: Denies Vital Signs: WNL as closely monitored by nursing staff ROM: Right Upper Extremity: Shoulder Flexion WFL. Shoulder abduction WFL. Elbow flexion WFL. Wrist flexion WFL. Functional opening and closing of hand WFL. Left Upper Extremity: Shoulder Flexion WFL. Shoulder abduction WFL. Elbow flexion WFL. Wrist flexion WFL. Functional opening and closing of hand WFL. Right Lower Extremity: Hip flexion WFL. Hip abduction WFL. Knee flexion WFL. Ankle dorsiflexion WFL. Ankle plantarflexion WFL. Left Lower Extremity: Hip flexion WFL. Hip abduction WFL. Knee flexion WFL. Ankle dorsiflexion WFL. Ankle plantarflexion WFL. Strength: Right Upper Extremity: Shoulder flexors 5/5. Shoulder abductors 5/5. Elbow flexors 5/5. Elbow extensors 5/5. Chalk Tester strong. Left Upper Extremity: Shoulder flexors 5/5. Shoulder abductors 5/5. Elbow flexors 5/5. Elbow extensors 5/5. Chalk Tester strong. Right Lower Extremity: Hip flexors 5/5. Hip abductors 5/5. Knee flexors 5/5. Knee extensors 55/5. Ankle dorsiflexors 5/5. Ankle plantarflexors 5/5. Left Lower Extremity: Hip flexors 4/5. Hip abductors 4/5. Knee flexors 5/5. Knee extensors 4/5. Ankle dorsiflexors 5/5. Ankle plantarflexors 5/5. Bed Mobility/Transfers: Rolling independent Supine to sit independent Sit to supine independent Sit to stand independent Stand to sit with independent Bed to reclining chair independent Reclining chair to bed independent Gait: Instructed patient with level surface ambulation of 300 feet requiring no physical assistance nor assistive device. Mild path deviation noted. Cathleen mildly decreased. Patient reported feeling a little unstable although no loss of balance was seen. Balance: Static Sitting: Normal Dynamic Sitting: Normal Static Standing: Good Dynamic Standing: Good Special Tests: Mobility Limitations Standardized Measure [facility] AM-PAC 6 clicks Basic Mobility Inpatient Short Form: Raw Score: 24 CMS Score: 0% deficit 30-second chair rise: 9x Rapid alternating movement: mildly impaired 4-stage balance test: Unable to maintain one-legged stance. Managed all three positions for 10 seconds: feet together, semi-tandem, and full tandem. Informed Consent/Education: Patient was instructed in purpose of PT consult and plan of care. Agreeable to proceed with established PT POC to achieve personal goals. Assessment: Mild impairment with rapid alternating movement which may be related to mild L hemineglect. Unable to maintain one legged stance due to instability. May benefit from out patient PT services for more balance and coordination skilling to allow for full return to prior level of function. Patient presents with clinical signs and symptoms consistent with current/admitting diagnoses that have resulted to mobility limitations, gait instability, generalized weakness, and overall ADL decline as demonstrated by the following impairment level findings: 1. Impaired coordination 2. Impaired static and dynamic standing balance Impairments are contributing to the following functional limitations: 1. Increased completion time for mobility ADL performance 2. Increased risk for falls Patient is assessed as a 47910 moderate complexity based on the following: History: 56-year-old male with past medical history as indicated above Examination: Demonstrable impairment in strength, balance, and mobility level with underlying impairments and functional limitations as exhibited above as well as deficit score of 0% utilizing the [facility] Mobility Inpatient Short Form Presentation: Evolving Decision Makin moderate complexity Goals: Goals X1 week 1. Independent gait on variable ground surfaces with use of no AD for at least 1000 feet without report of pain nor dyspnea 2. Normal standing static and dynamic balance Plan of Care/Treatment Plan: 1-2x/day, 7 days/week x 1 week. Plan of care has been reviewed with the CRITICAL CARE RN providing the service under Physical Therapy direction. Initiate Physical Therapy intervention for pain management as needed, strengthening, bed mobility, transfers, gait, stairs, balance training, and use of assistive device. DISCHARGE RECOMMENDATIONS: [] Home with no services [] [] Home with services [specify] [X] Home with outpatient PT. Home when medically cleared by hospitalist. OP PT to maximize balance and coordination that can reduce fall risk. No equipment needs at this time. [] SNF for continued rehabilitation [] [] Motorcycle Technician Care [] [] SNF versus LTC based on ability to participate and progress [] TREATMENT CODE/TIME: 51091 x 21 minutes beginning at 10:00 AM. Thank you for the opportunity to participate in the care of this patient. Fallon Marinelli PT, DPT, CLT [facility] [place], [place]
--- NOTE | 2022-03-27 10:22 | SP_ITS ---
Date of service: 03/27/22 Time of Service: 10:46 Subjective Speech Language Pathology Evaluation Consult order from Dr. Holman received 03/27/22; chart reviewed. TICKET SALES SUPERVISOR spoke with M/S staff re: current patient status, reason for consult ie clinical swallow eval given recent CVA, change in mental status, question of dysphagia. Patient currently has active diet texture order for IDDSI Level 5 minced and moist solids with Level 0 thin liquids. Patient is appropriate for VFSE/MBSS this afternoon, req 1-assist for transfers; TICKET SALES SUPERVISOR requested VFSE/MBSS order for imaging to take place this date, Dr. Holman also in agreement. CSE and cognitive-communication assessment took place prior to VFSE/MBSS this date. HPI: Patient is a 56 year-old man with hypertension, hyperlipidemia, heart disease s/p CABG in 2020, ETOH abuse (reports drinking 6-10 beers daily), JOSEFA, and pre-diabetes.? Mr. Garcia was brought to the ER by his family after increasing bizarre behavior and confusion, with onset thought to be 03/24/22. In the last 2 days he has lost the ability to manage his television and his cell phone asking family repeatedly to help him with them.? Yesterday, he apparently drove to his daughter's house - unclear reason - without a shirt on - and apparently took an indirect route as he was unable to figure out how to get there the usual way. MRI brain demonstrated large right hemispheric CVA involving right temporal, parietal, and frontal cortex and subcortical regions along w/ microhemorrhage. MRA brain did not demonstrate any major vessel occclusion but demonstrated paucity of Gómez branches of R. MCA. MRA of cervical vessels was compromised by motion artifact but no gross occlusions.? Per Neurology, Dr. Gama 03/26/22: Work-up: -CTH (03/26/22): subacute infarcts in the right frontal, temporal, and parietal lobes.? I reviewed these images personally and this is my personal interpretation.? -MRI brain w/o (03/26/22): acute/subacute right frontal, temporal, and parietal patchy infarcts. There is is evidence of microhemorrhage within the infarct beds.? I reviewed these images personally and this is my personal interpretation.? -MRA head/neck (03/26/22): No large vessel occlusions seen.? ~50% R ICA stenosis and bulking plaque on L as well with <50% stenosis per my review.? ?decreased R MCA distal branches.? I reviewed these images personally and this is my personal interpretation.? -CTA head/neck (03/26/22):? no significant stenosis.? Rads read distal L vertebral stenosis, but I don't see it as well.? I reviewed these images personally and this is my personal interpretation.? IMPRESSIONS: Patient demonstrates moderate cognitive-communicatione deficits, with question of receptive aphasia; current cognitive-communication ability is suspected to be below patient's typical baseline per family and patient report; patient does demonstrate deficits in the following areas per MOCA screening this date: visuospatial/executive functioning, delayed recall, attention, and language (expressive > receptive; patient has intermittent difficulties with multistep verbal directions, requires additional processing time/repetition/visual cues for full comprehension). Patient does report that he feels he doesn't always comprehend what others are saying or asking him to do; patient is likely to benefit from further TICKET SALES SUPERVISOR ass essment for cognitive-communication abilities / aphasia with patient/caregiver/family training and education. Given location(s) of CVA and recent changes in mental status, VFSE/MBSS is recommended at this time to further identify possible oropharyngeal deficits. MBS order requested by TICKET SALES SUPERVISOR this date. Current Recommendations: Instrumentation: Inpatient VFSE/MBSS Diet Texture Modification(s): IDDSI Level(s) 5-Minced & Moist Solids 0-Thin Liquids Medication Intake: Whole with 0-Thin Liquids Alter medications only as advised by MD or Pharmacist RISK MANAGEMENT: Oral hygiene q4h/every 4 hours and before/after PO intake using friction with toothbrush on all oral structures as tolerated HOB upright as tolerated; upright for all PO intake. Encourage physical mobility as tolerated. Level of Assistance/Supervision: Distant supervision for all PO intake PO intake only when awake/alert Strategies/Adaptations/Assistive Equipment: Alternate intake of liquids and solids, Secondary swallow, Small+frequent meals throughout day Posture/Positioning Needs: Maintain upright position at least 30 minutes after meals, Avoid meals/snacks 2- 3 hours prior to reclining/sleeping, Sleep with head of bed elevated to reduce likelihood of nocturnal reflux Specialist referrals: N/A Ancillary tests: N/A Therapy: TICKET SALES SUPERVISOR treatment 4-5x/week for 1 week. GOALS: TBD pending further cognitive-communication assessment, results of VFSE/MBSS Plan: TICKET SALES SUPERVISOR to return this date for inpatient VFSE/MBSS, further cognitive-communication assessment/screening time permitting, provide updated recommendations. Luz Maria Alas MA CCC-TICKET SALES SUPERVISOR Speech-Language Pathologist PR#[phone] PMHx: All Active Problems? Acute cerebrovascular accident (CVA) (Acute) Right hemisphere, cerebral infarction (Acute) History of alcohol abuse (Acute) Familial hyperlipidemia (Chronic) Essential (primary) hypertension (Chronic) Tubular adenoma (Acute ~08/2020) 09/13/20 Fragments of tubulovillous adenoma with serrated features [facility] [place] [place] Family history of colorectal cancer (Chronic) FSessile colonic polyp (Acute) Diverticulosis (Acute) Obstructive sleep apnea (adult) (pediatric) (Chronic) 03/30/[address] ROADMASTER CPAP Impaired fasting glucose (Acute) 5.7% 03/10/2020 Periodontal disease (Acute) Needs teeth extractions; underinsured; referred to [facility] 03/08/2020 History of tobacco abuse (Chronic 10/02/16) CAD (coronary artery disease) (Chronic 09/27/16) [facility] Cardiology Medical History? 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 Cardiac Catheterization and Placement of Coronary Artery Stents (07/24/07) x2 placed 2006 Last seen in cardiology 03/2020 Colonoscopy - IV Sedation (12/13/16) H/O four vessel coronary artery bypass graft (03/13/21) [facility] 03/16/21 Social History/Home Situation: Lives alone in a private home with 4 steps to enter with rails on B sides.? Independent with all aspects of ADLs prior to admission.? Son, daughter, and sister are good support.? 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 Equipment Owned/DME: None Objective: MOCA [facility] [place] Cognitive Assessment was administered to screen patient's overall cognitive-communication abilities: Visuospatial/Executive Functionin/5 *Also of note is patient's Left neglect Namin/3 Memory: 09/29 holly */ categorical cue, 11/29 w multiple choice cue Attention: 08/02 Language: 2 Abstraction: 0/2 *describes differences vs similarities per task instructions Orientation: 12/31 TOTAL: Predisposing dysphagia risk factors: CVA, JOSEFA, periodontal disease Clinical signs of possible chronic dysphagia: wet/gurgly VQ w YSP Precipitating dysphagia risk factors / triggering event: Recent CVA, changes in mental status ? RR: 16 / RA ? Cranial nerve exam / Oral Motor: Grossly WFL, Left sided neglect is noted on occasion with conversation / following 1-2 step directions CN IX/X: Vocal Quality - wet after po intake of thin liquid only x1, occasional TC outside of po intake; otherwise WFL onset of swallow - suspect possible delay pharyngeal residue - unclear if present, WFL per patient report ? Dentition/Oral Structures/Hygiene: periodontal disease, does require extractions per chart review unable to assess oral hygiene due to time limits Language: verbal expression/fluency WFL, naming WFL, repetition WFL, and auditory comprehension likely reduced - unclear if presentation is more cognitive status or true receptive aphasia, recommend further testing Hearing: WFL Mental Status: AAOx3, recall of current events intact per interview this date; patient demonstrates self-awareness of deficits, however does indicate he still does not quite understand what happened (re: CVA) Speech: WFL Cough: (volitional) perceptually WFL ? PO intake IDDSI 0: (+) positive for overt s.s aspiration with YSP, otherwise WFL in remaining trials at bedside IDDSI 5: WFL, (-) neg for overt s.s aspiration / denies pharyngeal globus Pill/tablet: (-) neg for overt s.s aspiration; patient noted to tilt head back slightly [place] Swallow Protocol: Fail (wet VQ) CODING TICKET SALES SUPERVISOR CPT Codes: 59300, 34980 Coding
--- NOTE | 2022-03-27 11:30 | ST.MBS_ITS ---
Date of Service Date of service: 03/27/22 Time of Service: 15:00 Modified Barium Swallow Study Findings: Videofluoroscopic Swallowing Evaluation (VFSE) / Modified Barium Swallow Study (MBSS) Speech Language Pathology Report HPI: Patient is a 56 year old male referred for VFSE/MBSS from Dr. Holman given recent CVA, concern for dysphagia; pmhx significant for hypertension, hyperlipidemia, heart disease s/p CABG in 2020, ETOH abuse (reports drinking 6- 10 beers daily), JOSEFA, and pre-diabetes.? Mr. Garcia was brought to the ER by his family after increasing bizarre behavior and confusion, with onset thought to be 03/24/22. In the last 2 days he has lost the ability to manage his television and his cell phone asking family repeatedly to help him with them.? Yesterday, he apparently drove to his daughter's house - unclear reason - without a shirt on - and apparently took an indirect route as he was unable to figure out how to get there the usual way. MRI brain demonstrated large right hemispheric CVA involving right temporal, parietal, and frontal cortex and subcortical regions along w/ microhemorrhage. MRA brain did not demonstrate any major vessel occclusion but demonstrated paucity of Gómez branches of R. MCA. MRA of cervical vessels was compromised by motion artifact but no gross occlusions.? PMHx: All Active Problems? Acute cerebrovascular accident (CVA) (Acute) Right hemisphere, cerebral infarction (Acute) History of alcohol abuse (Acute) Familial hyperlipidemia (Chronic) Essential (primary) hypertension (Chronic) Tubular adenoma (Acute ~08/2020) 09/13/20 Fragments of tubulovillous adenoma with serrated features [facility] [place] Family history of colorectal cancer (Chronic) FSessile colonic polyp (Acute) Diverticulosis (Acute) Obstructive sleep apnea (adult) (pediatric) (Chronic) 03/30/2020 Anuja Vicente NP CPAP Impaired fasting glucose (Acute) 5.7% 03/10/2020 Periodontal disease (Acute) Needs teeth extractions; underinsured; referred to [facility] 03/08/2020 History of tobacco abuse (Chronic 10/02/16) CAD (coronary artery disease) (Chronic 09/27/16) [facility] Cardiology Medical History? Adenomatous polyp of ascending colon (12/16/16) sessile serrated Chondromalacia patellae, right knee Depression PTSD; sees counselor in [place] [facility] Sertral[facility] Hand paresthesia History of alcohol abuse (09/27/16) [place] (myocardial infarction) (07/24/07) Age 41 Patellar maltracking Positive cardiac stress test s/p CABG x4 PTSD (post-traumatic stress disorder) [facility] History? Cardiac Catheterization and Placement of Coronary Artery Stents (07/24/07) x2 placed 2006 Last seen in cardiology 03/2020 Colonoscopy - IV Sedation (12/13/16) H/O four vessel coronary artery bypass graft (03/13/21) [facility] 03/16/21 Social History/Home Situation: Lives alone in a private home with 4 steps to enter with rails on B sides.? Independent with all aspects of ADLs prior to admission.? Son, daughter, and sister are good support.? 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 Equipment Owned/DME: None Previous Swallow Imaging: N/A SUBJECTIVE: Patient reports he could be doing better. Otherwise appropriate affect, also able to participate in MOCA administration (see initial SYSTEMATIC THEOLOGY PROFESSOR evaluation) with brief interview while waiting for Radiologist this date. IMPRESSIONS: Swallow safety is preserved, swallow efficiency is also grossly preserved. Oropharyngeal swallowing is deemed grossly WFL, as characterized by very mild physiologic deficits as outlined below, and resulting in delayed swallow onset with mixed consistencies, specifically pills in liquid, trace residual along pharyngeal structures which was cleared with volitional secondary swallow; airway protection is deemed adequate. Mild esophageal retention also noted, cleared with secondary swallow. Of note is patient's cognitive-communication deficits, suspected to be below his typical baseline; patient does demonstrate deficits in the following areas per MOCA screening: visuospatial/executive functioning, delayed recall, attention, and language (expressive > receptive; patient has intermittent difficulties with multistep verbal directions, requires additional processing time/repetition/visual cues for full comprehension). Patient does report that he feels he doesn't always comprehend what others are saying or asking him to do; patient is likely to benefit from further SYSTEMATIC THEOLOGY PROFESSOR assessment for cognitive-communication abilities / aphasia with patient/caregiver/family training and education. Patient appears to be at low, moderate, high risk for potential aspiration PNA and/or pulmonary compromise and low risk for malnutrition, low risk for dehydration. Diet modification is not indicated; non-oral nutrition is not indicated. Swallow prognosis is excellent given very mild physiologic deficits noted and pending patient/caregiver training in risk management as outlined, including use of trialed compensatory strategies as outlined above. Patient appears to be a good candidate for cognitive-communication rehabilitation.? Specialist referrals:?N/A Ancillary tests: N/A Diet texture recommendation:? IDDSI Levels [x] 7-Regular Solids [x] 0-Thin Liquids Please see further details at?[email or web address] Diet texture modification is per patient's preference; please adjust diet textures at patient's discretion & collaboration with care team. Risk Management:? Behavioral reflux precautions, including upright position during + 90 mins after meals. Control risk factors for aspiration pneumonia via (a) thorough oral hygiene & (b) maintaining physical mobility as tolerated PLAN: Therapy: - No further services re: dysphagia are warranted at this time. - Highly recommend SYSTEMATIC THEOLOGY PROFESSOR treatment / further standardized assessment for cognitive-communication deficits / aphasia in discharge setting; patient is appropriate for outpatient SYSTEMATIC THEOLOGY PROFESSOR services Goal: TBD pending patient/caregiver interview Follow-up exam: N/A Thank you for allowing me to take part in this patient's care. Please feel free to contact me with any questions/concerns. Luz Maria Alas MA [facility]-SYSTEMATIC THEOLOGY PROFESSOR Speech Language Pathologist [phone] OBJECTIVE: Videofluoroscopic Swallow Evaluation (VFSE/MBSS) was conducted in the lateral and [id number] projections by Speech-Language Pathologist, in collaboration with Radiologist, to evaluate oropharyngeal swallow function. Anatomic view under fluoroscopy: WFL PO Barium Contrast Trials Oral barium water-soluble contrast was administered as follows: IDDSI Level 0 Varibar thin liquid (40% w/v) IDDSI Level 2 Varibar nectar thick/mildly thick liquid (40% w/v) IDDSI Level 3 Varibar thin honey/liquidised/moderately-thick (40% w/v) IDDSI Level 4 Varibar pudding/pureed/extremely thick (40% w/v) IDDSI Level 7 Regular Solid: 1/2 germán cracker coated in 3 mL Varibar pudding; 13 mm barium tablet x2 PHYSIOLOGIC FINDINGS MBSImP Component Scores: COMPONENT Scale SCORE 1 Lip closure (0-4) 0 Resulted in no labial escape 2 Hold Position (0-3) 0 Maintained a cohesive bolus between tongue to palatal s eal 3 Bolus Preparation (0-4) 0 Resulted in timely and efficient chewing and mashi ng 4 Bolus Transport (0-4) 0 Was with brisk tongue motion 5 Oral Residue (0-4) 1 Was a trace, lining oral structures 6 Swallow Initiation (0-4) 3 Occurred when the bolus head was in the pyriform sinuses x1 for mixed consistency with barium tablet+thin liquid via cup, otherwise initiated at valleculae and/or ramus of the mandible 7 Soft Palate Elevation (0-4) 0 Resulted in no bolus between soft palate and t he pharyngeal wall 8 Laryngeal Elevation (0-3) 0 Demonstrated complete superior movement of thyro id cartilage with complete approximation of arytenoids to epiglottic petiole 9 Anterior Hyoid Motion (0-2) 0 Demonstrated complete anterior movement 10C Epiglottic Movement (0-2) 0 Resulted in complete inversion 11 Laryngeal Closure (0-2) 0 Was complete with no air or contrast in laryngeal vestibule 12 Pharyngeal Stripping Wave (0-2) 0 Was present and complete 13 Pharyngeal Contraction (0-3) 0 Was complete 14 PES Opening (0-3) 0 Was completely distended and complete duration with no obstruction of flow 15 Tongue Base Retraction (0-4) 1 Allowed a trace column of contrast or air between tongue base and pharyngeal wall 16 Pharyngeal Residue (0-4) 1 Showed a trace within or on pharyngeal structure s 17 Esophageal Clearance (0-4) 1 Resulted in mild esophageal retention, cleared with secondary swallow Results: COMPONENT Scale SCORE 1 Oral Score (0-18) 3 2 Pharyngeal Score (0-29) 0 3 Esophageal Score (0-4) 1 Functional Oral Intake Scale: COMPONENT Scale SCORE 1 Pre-Study (1-7) 6 Total oral intake with no special preparation, but must avoid specific foods or liquid items 2 Post-Study (1-7) 7 Total oral intake with no restrictions Penetration-Aspiration Scale: COMPONENT Scale SCORE 1 Thin liquid (1-8) 1 Contrast did not enter the airway 2 [place] thick (1-8) 1 Contrast did not enter the airway 3 Honey thick (1-8) 1 Contrast did not enter the airway 4 Pudding thick (1-8) 1 Contrast did not enter the airway 5 Cookie (1-8) 1 Contrast did not enter the airway Trialed Compensatory Strategies & Outcome: N/A - Oropharyngeal swallowing is grossly WFL Luz Maria Alas MA CCC-SYSTEMATIC THEOLOGY PROFESSOR Speech-Language Pathologist [place]#[phone] Coding CPT Codes MOTION FLUOROSCOPY/SWALLOW - [id number] ([id number])
--- NOTE | 2022-03-27 11:40 | INITIAL_ITS ---
- If Service Date Differs Date of service: 03/27/22 Time of Service: 11:40 Care Management Initial Assess REASON FOR HOSPITALIZATION:: CVA PAST MEDICAL HISTORY/PAST SURGICAL HISTORY:: All Active Problems. Acute cerebrovascular accident (CVA) (Acute). Right hemisphere, cerebral infarction (Acute). History of alcohol abuse (Acute). Familial hyperlipidemia (Chronic). Essential (primary) hypertension (Chronic). Tubular adenoma (Acute ~08/2020). 09/13/20. [facility] [place] history of colorectal cancer (Chronic). F. Sessile colonic polyp (Acute). Diverticulosis (Acute). Obstructive sleep apnea (adult) (pediatric) (Chronic). 03/30/2020 Anuja Vicente JAVA J2EE APPLICATION DEVELOPER. CPAP. Impaired fasting glucose (Acute). 5.7% 03/10/2020. Periodontal disease (Acute). Needs teeth extractions; underinsured; referred to [facility] 03/08/2020. History of tobacco abuse (Chronic 10/02/16). CAD (coronary artery disease) (Chronic 09/27/16). [facility] Cardiology. Medical History. Adenomatous polyp of ascending colon (12/16/16). sessile serrated. Chondromalacia patellae, right knee. Depression. PTSD; sees counselor in [facility]. Hand paresthesia. History of alcohol abuse (09/27/16). [place] (myocardial infarction) (07/24/07). Age 41. Patellar maltracking. Positive cardiac stress test. s/p CABG x4. PTSD (post-traumatic stress disorder). 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 Surgical History. Cardiac Catheterization and Placement of Coronary Artery Stents (07/24/07). x2 placed 2006. Last seen in cardiology 03/2020. Colonoscopy - IV Sedation (12/13/16). H/O four vessel coronary artery bypass graft (03/13/21). [facility] 03/16/21 PREVIOUS FUNCTIONAL STATUS/SOCIAL/FAMILY SUPPORTS:: Олег lives in [facility]. He has a daughter, Anuja, a son, Chino, and his sister, Sarah who all live locally, and are supportive. 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 He is independent at baseline. CURRENT FUNCTIONAL STATUS:: Олег was lying in bed when CM met with him. His son, daughter, and sister were visiting. Олег stated that he is feeling good today, but has not seen the MD yet. His children both expressed concern that he had not seen the MD yet, as they have not heard any results from the many tests he had done last night and today. CM reported that MD will likely visit after all results are available, in order to review the results with Олег and his family. MD arrived while CM was in the room, and reviewed the results and plan with them. He stated that Олег would remain overnight to have a barrium swallow evaluation in the morning. Per report, Олег has had some problems with confusion today regarding the operation of his phone. PT has evaluated him and is recommending outpatient PT. CM will continue to follow. ADVANCE DIRECTIVES:: Not on file. Has patient been provided with info about the portal/API?: Yes Did the patient sign up for the portal?: No CODE STATUS:: Full Code INSURANCE COVERAGE / FINANCIAL ISSUES:: BCBS CURRENT HOME/COMMUNITY SERVICES/EQUIPMENT:: No current services or equipment. PRIMARY CARE PHYSICIAN:: Tammy Chery POTENTIAL DISCHARGE NEEDS:: Evaluations for further needs, follow up appointments. PATIENT/FAMILY EDUCATION NEEDS:: Review discharge instructions and limitations, discussion of self care needs including ask me three. ANTICIPATED BARRIERS TO DISCHARGE:: None identified. TRANSPORTATION:: Via private vehicle by family. PLAN:: Anticipate Олег will return home when medically cleared. His family will drive him home via private vehicle. He will follow up with his PCP and discharge plan of care. CM will continue to follow.
--- NOTE | 2022-03-27 14:26 | PTTR_ITS ---
Date of service: 03/27/22 Time of Service: 14:26 PT Notes Visit Reasons: Cerebrovascular accident Physical Therapy Inpatient Treatment Note Date: 03/27/2022 Precautions: Fall. Standard. Activity as tolerated. Subjective: Requested to walk outdoors as he needed some fresh air. Denies headache, chest pain, and lightheadedness throughout activity. Objective: General Observation:? Seated at edge of bed.? Telemetry monitoring in place.?Daughter present and assisted with dressing patient to walk outside. Mental Status: Alert and oriented as to person, place, time, and purpose .? Appears to have some delayed execution of task involving the L UE.? Pain: Denies Vital Signs: WNL as closely monitored by nursing staff Bed Mobility/Transfers: Rolling independent Supine to sit independent Sit to supine independent Sit to stand independent Stand to sit with independent Bed to reclining chair independent Reclining chair to bed independent Gait: Navigated over carpeted, cemented with mild upslope/downslope, paved, grass- covered, and dirt pathways for 1000 feet x 2 using no assistive device. Patient commented about not being at his baseline yet balance and strength-katz. Did need to rest after the first 1000 feet. No path deviation. Able to pay attention at pedestrian crossing. Did need some cueing to get out of elevator but managed to operate the buttons coming back up the med surg unit. Balance: Static Sitting: Normal Dynamic Sitting: Normal Static Standing: Good Dynamic Standing: Good Assessment: Tolerated outdoor ambulation without any loss of balance or undue fatigue for the afternoon session. Mild impairment with rapid alternating movement which may be related to mild L hemineglect.? Unable to maintain one legged stance due to instability.? May benefit from out patient PT services for more balance and coordination skilling to allow for full return to prior level of function. DISCHARGE RECOMMENDATIONS: [] ? Home with no services [] [] ? Home with services [specify] [X] ? Home with outpatient PT.? Home when medically cleared by hospitalist.? OP PT to maximize balance and coordination that can reduce fall risk.? No equipment needs at this time. [] ? SNF for continued rehabilitation [] [] ? Motorcycle Repair Shop Supervisor Care [] [] ? SNF versus LTC based on ability to participate and progress [] TREATMENT CODE/TIME: 35147 x 36 minutes beginning at 14:26 PM.
--- NOTE | 2022-03-27 14:26 | W.PM.PROGNOT ---
Date of Service Date of service: 03/27/22 Time of Service: 14:26 Assessment and Plan Assessment and plan (1) Right hemisphere, cerebral infarction: Status: Acute Assessment and plan: subacute right MCA territory infarct w/ sparing of motor and sensory function but w/ some higher cognitive impairment in regards to operation of his electronic devices. also he has some right sided barb-neglect. Continue ASA 81 mg daily. Apparently his Plavix reaction included swelling of his face, hives but no angioedema. I have changed his atorvastatin 80 mg to rosuvastatin 40 mg. He is already on Zetia. I think that it is time that he see an statistician to discuss one of the biologics for control of his hyperlipidemia. His rhythm has remained NSR throughout his stay so far. I will send him home w/orders for 30 day event recorder to assess for PAF. TTE w/ bubble study is pending. Will get his modified barium swallow tomorrow per ELECTRICIAN SUPERVISOR recommendations. Professional time spent interviewing and examining patient, discussion of goals of care with hospital team (care management, nursing and consulting professionals) was 45 minutes. (2) History of alcohol abuse: Status: Acute Assessment and plan: CIWA protocol and d/t his high risk for acute withdrawal, I have ordered low dose librium along w/ symptom triggered lorazepam per CIWA scores. (3) Familial hyperlipidemia: Status: Chronic Assessment and plan: as above (4) Essential (primary) hypertension: Status: Chronic Assessment and plan: will allow passive hypertension although d/t his micro hemorrhages need to keep his SBP below 200. (5) CAD (coronary artery disease): Status: Chronic Assessment and plan: no chest pain, dyspnea or palpitations. I did not see admission EKG. Will check EKG tonight. initial troponin I was normal. Qualifiers: Coronary Disease-Associated Artery/Lesion type: unspecified vessel or lesion type [place] vs. transplanted heart: [place] heart Associated angina: unspecified whether angina present Qualified Code(s): I25.10 - Atherosclerotic heart disease of [place] coronary artery without angina pectoris (6) Impaired fasting glucose: Status: Acute Assessment and plan: monitor glucose w/ goal of 140 to 180. Use sliding scale insulin novolog. check A1c in the morning. Subjective Subjective Interval history since last seen: Олег still have some problems with confusion such as how to operate his remote control or his cell phone. He denies any headache blurred vision slurred speech or dysphagia. Nevertheless speech therapist feels he should have a modified barium swallow. His family was present when I visited the patient and included his and son and daughter. His son and daughter had numerous questions in terms of results of his CT of his head neck as well as results of his echocardiogram. I went over the results of his CTA of his head neck from last night but his echocardiogram results are still pending. I explained to him that his rhythm has been sinus rhythm but upon discharge she should have a 30-day event recorder to look for paroxysmal atrial fibrillation. We talked about the risk for PAF including his chronic alcohol use, his sleep apnea. I reviewed his labs including his lipid profile which shows that his hyperlipidemia is not under very good control. Total cholesterol 294, LDL 213, triglycerides 161. His daughter indicated that his concreting supervisor at the time of his coronary bypass graft last year wanted him to go on an injectable biologic to control his cholesterol. I asked them if they recall the name of the medicine and they did not. Apparently the patient chose not to go on the medication at the advice of his PCP. Family indicates PCP was not familiar with the biologic agent. I asked him if it was Praluent or Repatha. The daughter seem to be familiar with Repatha as some of her clients in the dental office where she works are currently taking this. Exam Narrative Exam Narrative: Олег is a alert and oriented HEENT he exhibits no facial asymmetry and no dysarthric speech. Full EOMI, visual barragan grossly intact, tongue is midline without fasciculation, palate elevates symmetrically. Normal phonation when I ask him to repeat the alphabet. Hearing is grossly intact to whisper. No facial paresthesia or dysesthesia Neck is supple nontender normal range of motion. Motor exam of upper and lower extremities grossly intact with normal proximal and distal muscle strength. Grossly normal sensation to light touch. Negative Romberg. Negative pronator drift. Gait appears to be stable. He was able to walk several feet without assistance within his room and was able to turn quickly and return back to his bed without loss of balance. Objective Last Vital Signs Temp 36.6 C 03/27/22 11:08 Pulse 60 03/27/22 11:08 Resp 16 03/27/22 11:08 BP 120/78 03/27/22 11:08 Pulse Ox 97 03/27/22 11:08 Laboratory Results - last 24 hr 03/26/22 03/26/22 03/27/22 14:06 14:06 06:35 WBC RBC Hgb Hct MCV MCH MCHC RDW Plt Count MPV Immature Gran % Neutrophils % Lymphocytes % Monocytes % Eosinophils % Basophils % Nucleated RBC % Absolute Neutrophils Absolute Lymphocytes Absolute Monocytes Absolute Eosinophils Absolute Basophils Sodium Potassium Chloride Carbon Dioxide Anion Gap BUN Creatinine Est GFR (CKD-EPI 2020) Glucose Hemoglobin A1c Calcium Phosphorus 3.8 Magnesium 2.0 Total Bilirubin 0.6 Conjugated Bilirubin 0.1 AST 17 ALT 30 Alkaline Phosphatase 60 Total Protein 6.9 Albumin 3.4 Triglycerides 161 H Total Cholesterol 294 H LDL Cholesterol, Calc 213 H HDL Cholesterol 49 Urine Color Yellow Urine Clarity Clear Urine pH 7.0 Ur Specific [place] 1.020 Urine Protein Negative Urine Ketones Trace H Urine Blood Negative Urine Nitrite Negative Urine Bilirubin Negative Urine Urobilinogen 1.0 H Ur Leukocyte Esterase Negative Urine Glucose Negative Urine Opiates Screen Negative Urine Methadone Screen Negative Ur Barbiturates Screen Negative Ur Tricyclics Screen Negative Ur Amphetamines Screen Negative U Benzodiazepines Scrn Negative Urine Cocaine Screen Negative Ur THC Screen Negative 03/27/22 03/27/22 03/27/22 06:35 06:35 06:35 WBC 7.77 RBC 4.95 Hgb 15.4 Hct 44.7 MCV 90 MCH 31.1 MCHC 34.5 RDW 13.1 Plt Count 272 MPV 9.7 Immature Gran % 0.3 Neutrophils % 54.3 Lymphocytes % 32.9 Monocytes % 9.7 Eosinophils % 2.2 Basophils % 0.6 Nucleated RBC % 0.0 Absolute Neutrophils 4.22 Absolute Lymphocytes 2.56 Absolute Monocytes 0.75 Absolute Eosinophils 0.17 Absolute Basophils 0.05 Sodium 134 L Potassium 3.9 Chloride 103 Carbon Dioxide 24.3 Anion Gap 6.7 BUN 18 Creatinine 1.1 Est GFR (CKD-EPI 2020) 78.30 Glucose 97 Hemoglobin A1c 5.5 Calcium 8.7 Phosphorus Magnesium Total Bilirubin Conjugated Bilirubin AST ALT Alkaline Phosphatase Total Protein Albumin Triglycerides Total Cholesterol LDL Cholesterol, Calc HDL Cholesterol Urine Color Urine Clarity Urine pH Ur Specific [place] Urine Protein Urine Ketones Urine Blood Urine Nitrite Urine Bilirubin Urine Urobilinogen Ur Leukocyte Esterase Urine Glucose Urine Opiates Screen Urine Methadone Screen Ur Barbiturates Screen Ur Tricyclics Screen Ur Amphetamines Screen U Benzodiazepines Scrn Urine Cocaine Screen Ur THC Screen PAWSS Have you Been Recently Intoxicated or Drunk Within the Last 30 days?: Yes Have you Ever Experienced Previous Episodes of Alcohol Withdrawal?: No Have you ever Experienced Withdrawal Seizures?: No Have you ever Experienced Delirium Tremens(DT)s?: No Have you ever undergone Alcohol Rehabilitation Treatment (i.e, inpt ot outpatient treatment programs)?: No Have you ever Experienced Blackouts?: No Have you ever Combined Alcohol with other Downers within the last 90 days?: No Have you ever Combined Alcohol with any other Substance of Abuse during the last 90 days?: No Positive Blood Alcohol level on Presentation? [PCS.BAL]: Unable to Obtain Evidence of Increased Autonomic Activity (i.e. HR>120, tremor, sweating, agitation, nausea)?: No Result: 1
[2022-03-27] MEDS: Barium Sulfate Oral Paste 40% W/V 230 ML TUBE 10 ML PO (15:54)
[2022-03-27] MEDS: Barium Sulfate 40% W/V 1500 CPS 250 ML BTL 10 ML PO (15:55)
[2022-03-27] MEDS: Barium Sulfate 40% W/V 240 ML BTL 15 ML PO (15:56)
[2022-03-27] MEDS: Barium Sulfate 81% w/w for Oral Suspension 148 GM BTL 40 GM PO (15:57)
[2022-03-27] MEDS: Barium Sulfate 700 MG TAB 1400 MG PO (15:58)
[2022-03-27] MEDS: Perflutren Lipid Microspheres 1.5 ML VIAL IVP (16:04)
--- NOTE | 2022-03-27 16:33 | PHACLINREV_ITS ---
Pharmacy Admission Review - Admission Clinical Review (Last Reviewed 03/26/22 @ 18:56 by Wayne Holman MD) Jose Alejandro-neglect of left side (Acute) Acute cerebrovascular accident (CVA) (Acute) Right hemisphere, cerebral infarction (Acute) History of alcohol abuse (Acute) Impaired fasting glucose (Acute) clopidogrel bisulfate [From Plavix] Allergy (Intermediate, Verified 03/26/22 11:49) Hives Resuscitation Status Full Code Height 5 ft 6 in Weight 90.7 kg - Renal Dosing Renal Dosing: BUN 18 mg/dL (7-18) 03/27/22 06:35 Creatinine 1.1 mg/dL (0.70-1.30) 03/27/22 06:35 Medications needing adjustments: Reviewed (crcl = 78, no adjustments needed) - Anticoagulation Anticoagulation: Hgb 15.4 g/dL (13.5-17.5) 03/27/22 06:35 Hct 44.7 % (40.0-50.0) 03/27/22 06:35 Plt Count 272 10^3/uL (130-400) 03/27/22 06:35 Creatinine 1.1 mg/dL (0.70-1.30) 03/27/22 06:35 DVT Prophylaxis: Reviewed Medications: Enoxaparin (enoxaparin 40 mg daily) Therapeutic Anticoagulation: Reviewed Medications: Aspirin (anti-platelet indicated (CVA) however pt reports allergy to plavix (hives), discussed with ED provider yesterday. Unfortunately there is chance of cross-reactivity with all P2Y12 antagonists (brilinta etc), we do not have Aggrenox on formulary. Cont ASA 81 mg daily) - Opiate Usage Evaluate Pain Scale/Pains Meds: N/A (not on opiates) - Relevant Labs Sodium 134 mmol/L (136-145) L 03/27/22 06:35 Potassium 3.9 mmol/L (3.5-5.1) 03/27/22 06:35 Chloride 103 mmol/L (98-107) 03/27/22 06:35 Phosphorus 3.8 mg/dL (2.6-4.7) 03/27/22 06:35 Magnesium 2.0 mg/dL (1.8-2.4) 03/27/22 06:35 Electrolytes, C-Reactive P, ESR: Reviewed - DM Control DM Control: Glucose 97 mg/dL (74-106) 03/27/22 06:35 Hemoglobin A1c 5.5 % (<5.7) 03/27/22 06:35 Finger Stick Blood Glucose 120 Finger Stick Blood Glucose 120 Finger Stick Blood Glucose 87 Finger Stick Blood Glucose 87 Finger Stick Blood Glucose 87 Insulin Dosing: Reviewed (prediabetic - a1c = 5.5%, insulin aspart sliding scale with meals ordered (not on any anti-diabetics at home) - has not yet received any insulin, blood sugars below SS protocol) - Heart Failure/NE Heart Failure/NE: Troponin I < 50 ng/L (<or=60) 03/26/22 12:54 EF%, MONAE's, B-Blockers, Diuretics: N/A - BP Control BP Control: Blood Pressure 120/78 Blood Pressure 116/76 Blood Pressure 113/73 If elevated: Reviewed (BP WNL - takes metoprolol tart 25 mg BID) - Qtc Review If Elevated: N/A (no EKG) - IV to PO Switch IV Medications: Reviewed (not currently receiving any IV meds (does have lorazepam IV prn if needed, in addition to oral)) - Home Meds Home Med List reviewed: Reviewed (? compliance - per First fill history, la st fill for metoprolol & atorvastatin were 06/2021, ezetimibe last fill mar 2021) - Current meds Current Medication Order Review: Reviewed (CIWA - chlordiazepoxide 25 mg TID plus PRN lorazepam (has only had 1 dose in the ER); rosuvastatin 40 mg new (in addition to ezetimibe),)
--- NOTE | 2022-03-27 17:46 | PGE_ITS ---
Date of Service Date of service: 03/27/22 Time of Service: 17:46 Assessment and Plan Assessment and plan (1) Acute cerebrovascular accident (CVA): Status: Acute (2) Right hemisphere, cerebral infarction: Status: Acute (3) Jose Alejandro-neglect of left side: Status: Acute Assessment and plan: Mr. Garcia is a 56 year-old, right-handed man admitted with a large right cerebellar ischemic stroke manifested by left jose alejandro-neglect and other cognitive changes for which etiology is currently unknown at present, but with no obvious large vessel disease seen at this time. Work-up: -TTE with bubble study - pending -discharge with 30 day cardiac event recorder Medications: Treatment complicated due to appearance of microhemorrhage seen on MRI and his large ingestion of aspirin prior to arrival. Further, he has previous allergic reaction to clopidogrel. It is presumed that he therefore cannot be treated with ticagelor. Unfortunately, we do not have Aggrenox (ASA/dipyridamal) in stock. Thus: -aspirin 81mg daily for secondary stroke prevention while inpatient with plan to discharge on Aggrenox BID along with ASA 81mg daily (presume cardiology will not think ASA component of Aggrenox is sufficient, but I will also call his cardiology team in am when office is open to discuss with them). Also of consideration would be COMPASS trial which I think would apply to him and would involve ASA + Xarelto 2.5mg BID for secondary stroke prevention. However, would not start anticoagulation of any dose until at least 14 days post stroke secondary to presence of microhemorrhage. -atorvastatin 80mg daily for secondary stroke prevention; agree with further en docrinology referral Other: -Continue permissive hypertension, goal long-term BP <140/90 -outpatient PT -outpatient ST -given ongoing hemineglect and cognitive deficits, I have recommended to him that he NOT drive He should follow-up in the neurology clinic here in 4-6 weeks. He is also requesting second opinion and would like a referral to [facility] Neurology upon discharge. Subjective Subjective Interval history since last seen: Stable overnight. BP has come down naturally. TTE still pending. Tele with SR. -LDL 217 -A1c 5.5 -Na 134 Seen by PT who recommends outpatient PT. Seen by OT with no needs. Seen by ST who performed MOCA . He also had a MBSS which was essentially normal. They are recommending outpatient ST for cognitive rehab. Exam Narrative Exam Narrative: Physical Exam: Constitutional: Patient of apparent stated age, well nourished, well developed, no acute distress Neuro: MS/Language/Speech: Alert, oriented, clear language (fluency and comprehension), no dysarthria CN: visual barragan intact with left hemiextinction to DSS, trigeminal sensation intact, no facial asymmetry, hearing intact Motor: Normal bulk and tone. FMM intact, no pronator drift. 5/5 strength in bilateral upper and lower extremities Sensation: Intact to light touch throughout; still has some residual extinction to DSS but today was able to catch some; graphesthesia and stereognosia intact bilaterally Coordination: Finger to nose performed without dysmetria \ Objective Last Vital Signs Temp 97.7 F 03/27/22 15:40 Pulse 71 03/27/22 15:40 Resp 18 03/27/22 15:40 BP 118/73 03/27/22 15:40 Pulse Ox 96 03/27/22 15:40 Laboratory Results - last 24 hr 03/27/22 03/27/22 03/27/22 06:35 06:35 06:35 WBC RBC Hgb Hct MCV MCH MCHC RDW Plt Count MPV Immature Gran % Neutrophils % Lymphocytes % Monocytes % Eosinophils % Basophils % Nucleated RBC % Absolute Neutrophils Absolute Lymphocytes Absolute Monocytes Absolute Eosinophils Absolute Basophils Sodium 134 L Potassium 3.9 Chloride 103 Carbon Dioxide 24.3 Anion Gap 6.7 BUN 18 Creatinine 1.1 Est GFR (CKD-EPI 2020) 78.30 Glucose 97 Hemoglobin A1c 5.5 Calcium 8.7 Phosphorus 3.8 Magnesium 2.0 Total Bilirubin 0.6 Conjugated Bilirubin 0.1 AST 17 ALT 30 Alkaline Phosphatase 60 Total Protein 6.9 Albumin 3.4 Triglycerides 161 H Total Cholesterol 294 H LDL Cholesterol, Calc 213 H HDL Cholesterol 49 03/27/22 06:35 WBC 7.77 RBC 4.95 Hgb 15.4 Hct 44.7 MCV 90 MCH 31.1 MCHC 34.5 RDW 13.1 Plt Count 272 MPV 9.7 Immature Gran % 0.3 Neutrophils % 54.3 Lymphocytes % 32.9 Monocytes % 9.7 Eosinophils % 2.2 Basophils % 0.6 Nucleated RBC % 0.0 Absolute Neutrophils 4.22 Absolute Lymphocytes 2.56 Absolute Monocytes 0.75 Absolute Eosinophils 0.17 Absolute Basophils 0.05 Sodium Potassium Chloride Carbon Dioxide Anion Gap BUN Creatinine Est GFR (CKD-EPI 2020) Glucose Hemoglobin A1c Calcium Phosphorus Magnesium Total Bilirubin Conjugated Bilirubin AST ALT Alkaline Phosphatase Total Protein Albumin Triglycerides Total Cholesterol LDL Cholesterol, Calc HDL Cholesterol PAWSS Have you Been Recently Intoxicated or Drunk Within the Last 30 days?: Yes Have you Ever Experienced Previous Episodes of Alcohol Withdrawal?: No Have you ever Experienced Withdrawal Seizures?: No Have you ever Experienced Delirium Tremens(DT)s?: No Have you ever undergone Alcohol Rehabilitation Treatment (i.e, inpt ot outpatient treatment programs)?: No Have you ever Experienced Blackouts?: No Have you ever Combined Alcohol with other Downers within the last 90 days?: No Have you ever Combined Alcohol with any other Substance of Abuse during the last 90 days?: No Positive Blood Alcohol level on Presentation? [PCS.BAL]: Unable to Obtain Evidence of Increased Autonomic Activity (i.e. HR>120, tremor, sweating, agitation, nausea)?: No Result: 1
[2022-03-27] MEDS: Enoxaparin 40 MG/0.4 ML SYR SC (18:03)
[2022-03-27] MEDS: Rosuvastatin 10 MG TAB 40 MG PO (20:05)
[2022-03-27] MEDS: Metoprolol 25 MG TAB PO (20:05)
[2022-03-28 03:39] VITALS: BP 119/77; PULSE 58; RESP 17; TEMP 37; O2SAT 97
[2022-03-28 06:59] VITALS: PULSE 55
[2022-03-28 07:22] VITALS: BP 115/76; PULSE 61; RESP 16; TEMP 36.1; O2SAT 96
[2022-03-28] MEDS: Aspirin E.C. 81 MG TABEC PO (08:30)
[2022-03-28] MEDS: Ezetimibe 10 MG TAB PO (08:30)
[2022-03-28] MEDS: Sertraline 50 MG TAB PO (08:30)
[2022-03-28] MEDS: Folic Acid 1 MG TAB PO (08:30)
[2022-03-28] MEDS: Multivitamin TAB 1 TAB PO (08:30)
[2022-03-28] MEDS: chlordiazePOXIDE 25 MG CAP PO ×2 (08:30→15:23)
[2022-03-28] MEDS: Thiamine 100 MG TAB PO (08:30)
[2022-03-28] MEDS: Metoprolol 25 MG TAB PO (08:31)
--- NOTE | 2022-03-28 09:21 | OTTR_ITS ---
Occupational Therapy Notes Occupational Therapy Inpatient Treatment Note Date: 03/28/22 PRECAUTIONS: Fall, standard, Full SUBJECTIVE: Pt states that he is doing well and notes that he feels better than yesterday. His daughter is present in the room and he reports that he is having some visual deficits with seeing apps in his phone. OBJECTIVE: PAIN:no c/o pain THEREX: OT educated and trained pt in UE strengthening for (B) UE including red theraband pull, bicep curls with 3# and grasp and pinch of foam cubes. OT educated and trained pt in using his (L) throughout his ADLS as well as gross and fine motor control of his (L) UE with mod vc for task initiation with the (L) UE. TREATMENT CODES/TIME: 41940, 15 minutes [facility]
--- NOTE | 2022-03-28 10:38 | PTTR_ITS ---
Date of service: 03/28/22 Time of Service: 08:44 PT Notes Visit Reasons: Cerebrovascular accident Inpatient Physical Therapy Treatment Note [facility] Date: 03/28/2022 PRECAUTIONS: Fall, activity as tolerated, (?)barb-neglect L SUBJECTIVE: Roger is pleasant and agreeable to participating in PT. He reports that he is feeling better and less symptomatic compared to yesterday. He reports that he is not experiencing balance deficits nor does he notice vision cuts like he did previously. He does report that he feels somewhat lightheaded with transfers. OBJECTIVE: PAIN: No c/o pain BED MOBILITY/TRANSFERS Supine-sit: I with HOB flat (to left side of bed) Sit-supine: I with HOB flat (from left side of bed) Sit-stand: I Stand-sit: I GAIT Assistive Device: No AD Weight bearing: Full Assist: I Distance: ~1000' Deviation: None THEREX: Patient was instructed in several exercises for promotion of neuro re- education and balance retraining, to include: four-square box-stepping, star- pattern multi-plane unilateral stepping, SLS. STAIRS: Up/down 3x4 and 2x6 without handrail support with a step-over pattern, independently. ASSESSMENT: Patient demonstrates improved proprioception and does not demonstrate signs of barb-neglect at this time. Patient demonstrates independence with transfers, bed mobility, ambulation and stair negotiation at this time. PLAN: Discharge from PT services due to independence with all functional activities and mobility at this time, with normal static and dynamic balance noted. TREATMENT CODE/TIME: 31 minutes; 52086 x2 (09:25)
--- NOTE | 2022-03-28 13:15 | SPP_ITS ---
Date of service: 03/28/22 Time of Service: 13:00 Subjective Patient was contacted in his room with daughter and son-in-law present this date, agreeable to participate in additional assessment activities. He reports he feels his symptoms have improved since yesterday, which his family as well as RN agree with per their observations. Objective/Assessment/Plan Objective Treatment Techniques & Outcomes: Assessment: Orientation: patient initially not oriented to date/month. Self-corrected the date but required cue for month. Oriented to self, year, situation. Recall: Patient with good recall of recent events. Family also reports this is improved today. Oral Reading: occasional errors them for item ; seven for eleven - may reflect visual processing vs impaired vision vs. attention to detail, does not appear to be aphasia-based errors. Some difficulty with scanning, improves with finger scanning strategy. Visual Scanning (CLQT Symbol Cancellation): +10/12 independently; cues for visual anchor & finger scanning strategy improved score to +12/12. Initially noting some inappropriate symbol selections which were later self-corrected; may indicate mild difficulty with impulsivity or attention to detail Writing: Patient wrote a sentence in response to the question What do you like to do? with good spacing/alignment and no spelling/grammar errors. Picture description: Brief but adequate description of scene. While not sp ontaneously produced, he does respond to questions/prompts with adequate use of inference (e.g., How do you know the woman is not paying attention to her surroundings? WAB-R Bedside - selected subsections: Sequential Commands: +10/10 (up to 4 elements) Spontaneous Speech: Fluency: +10/10; no paraphasias or word-finding errors Clock Drawing: See below. Patient/Caregiver/Staff Education: Provided recommendations and results of todays evaluation activities to patient, family, RN. Assessment No aphasia suspected this date. Improved performance with multi-step instructions but continues with some subtle attention and problem-solving difficulties. Appears to have fluctuating orientation to date throughout day per observation and RN/family report. Does present with some reading errors possibly similar to baseline performance and likely complicated by visuospatial processing deficits as well as ?impaired vision. Patient appears with some improvements in visuo-spatial processing this date (see clock drawing below) though remains with evidence of visual scanning difficulties, spatial integration challenges, and left neglect. Stimulable to cues for visual anchoring and finger scanning strategies; education provided to patient/family regarding impacts of such deficits on safety & awareness and how to utilize these strategies as well as additional recommendations as provided cara.. Plan Plan: Once home, recommend daily check-ins from family to ensure safety given noted errors in visual-spatial processing, attention to detail/problem-solving. Patient should return for outpatient [employer] TECH[employer]ICIAN evaluation within 2-4weeks for full cognitive-communication evaluation and determine if cognitive rehab remains appropriate at that time. Recommendations Recommendations: Cognitive-Communication Recommendations: - Encourage visual anchoring (line or finger on left side of page) and systematic L-R scanning to reduce left inattention. - Place important items on the patient's right side to ensure awareness. - Provide written reinforcement of instructions and important information. - Ensure reading materials are not too visually crowded/dense to enable L/R scanning strategies. - Check in with patient daily to monitor safety Diet texture recommendation:? IDDSI Levels [x] 7-Regular Solids [x] 0-Thin Liquids Please see further details at?[email or web address].iddsi.org Diet texture modification is per patient's preference; please adjust diet textures at patient's discretion & collaboration with care team. Risk Management:? Behavioral reflux precautions, including upright position during + 90 mins after meals. Control risk factors for aspiration pneumonia via (a) thorough oral hygiene & (b) maintaining physical mobility as tolerated Total Time Spent: 40 minutes CPT: 00531 Coding
[2022-03-28 15:03] VITALS: PULSE 62
[2022-03-28 15:44] VITALS: BP 100/64; PULSE 65; RESP 16; TEMP 36.7; O2SAT 96
--- NOTE | 2022-03-28 16:14 | PGE_ITS ---
Date of Service Date of service: 03/28/22 Time of Service: 16:14 Assessment and Plan Assessment and plan (1) Acute cerebrovascular accident (CVA): Status: Acute (2) Right hemisphere, cerebral infarction: Status: Acute (3) Jose Alejandro-neglect of left side: Status: Acute Assessment and plan: Mr. Garcia is a 56 year-old, right-handed man admitted with a large right hemisphere ischemic stroke manifested by left jose alejandro-neglect and other cognitive changes for which etiology is currently unknown at present. There is no obvious large vessel disease seen. BLANCA shows akinesis of the apex which could be a source of clot formation. Work-up: -BLANCA - I have ordered this to be done at [facility] as per patient wish, ordered stat -discharge with 30 day cardiac event recorder Medications: Treatment complicated due to appearance of microhemorrhage seen on MRI and his l arge ingestion of aspirin prior to arrival. Further, he has previous allergic reaction to clopidogrel. It is presumed that he therefore cannot be treated with ticagelor. Unfortunately, we do not have Aggrenox (ASA/dipyridamal) in stock. Thus plan is for aspirin 81mg daily for secondary stroke prevention while inpatient with plan to discharge on Aggrenox BID along with ASA 81mg daily (presume cardiology will not think ASA component of Aggrenox is sufficient; I left a message with Dr. Tao's office to this effect who is out of office until 04/03/22). Also of consideration would be COMPASS trial which I think would apply to him and would involve ASA + Xarelto 2.5mg BID for secondary stroke prevention. However, would not start anticoagulation of any dose until at least 14 days post stroke secondary to presence of microhemorrhage. Now that we have TTE results, cardioembolic source is also a possibility for which anticoagulation would be indicated. But, I recommend BLANCA first to confirm clot formation before starting and would not start earlier than post-stroke day 14. If he should need anticoagulation, medication choices limited due to current lack of insurance. -atorvastatin 80mg daily for secondary stroke prevention; agree with further endocrinology referral Other: -his BP has normalized post-stroke, goal long-term BP <140/90 -outpatient ST (I have ordered this) -given ongoing hemineglect and cognitive deficits, I have recommended to him that he NOT drive; we discussed formal visual barragan as an outpatient as well as a driving assessment but no orders placed for these at this time He should follow-up in the neurology clinic here in 4-6 weeks. He is also requesting a second opinion and would like a referral to [facility] Neurology upon discharge - I have placed this. Subjective Subjective Interval history since last seen: -TTE (03/27/22): EF 58%. The distal apex is akinetic. LA is normal. Tele remains NSR. Exam Narrative Exam Narrative: Exam deferred as he was asleep. Objective Last Vital Signs Temp 98.1 F 03/28/22 15:44 Pulse 65 03/28/22 15:44 Resp 16 03/28/22 15:44 BP 100/64 03/28/22 15:44 Pulse Ox 96 03/28/22 15:44 PAWSS Have you Been Recently Intoxicated or Drunk Within the Last 30 days?: Yes Have you Ever Experienced Previous Episodes of Alcohol Withdrawal?: No Have you ever Experienced Withdrawal Seizures?: No Have you ever Experienced Delirium Tremens(DT)s?: No Have you ever undergone Alcohol Rehabilitation Treatment (i.e, inpt ot outpatient treatment programs)?: No Have you ever Experienced Blackouts?: No Have you ever Combined Alcohol with other Downers within the last 90 days?: No Have you ever Combined Alcohol with any other Substance of Abuse during the last 90 days?: No Positive Blood Alcohol level on Presentation? [PCS.BAL]: Unable to Obtain Evidence of Increased Autonomic Activity (i.e. HR>120, tremor, sweating, agitation, nausea)?: No Result: 1
--- NOTE | 2022-03-28 17:15 | W.PM.DS.N ---
Date of service: 03/28/22 Time of Service: 17:16 DS: Diagnosis Discharge Diagnosis (1) Acute cerebrovascular accident (CVA): Status: Acute (2) Right hemisphere, cerebral infarction: Status: Acute (3) Jose Alejandro-neglect of left side: Status: Acute Discharge Plan Disposition Patient Disposition: HOME Condition: Improving Discharge Details Reason For Visit: CVA Admit Date/Time: 03/26/22 17:37 Admit Provider: Wayne Holman Attending Provider: Wayne Holman Primary Care Provider: Tammy Chery Hospital Course Hospital Course: This 56-year-old right-handed male with a history of hypertension, hyperlipidemia, coronary artery disease status post CABG with daily abuse of alcohol presented with acute onset of confusion headache and discoordination for the last 2 days along with left hemineglect. MRI scan of the brain showed large right hemispheric CVA involving right temporal, parietal, frontal cortex and subcortical regions along with microhemorrhages. MRI of the brain did not demonstrate a major vessel occlusion but demonstrated positive sylvian branches of the right MCA. MRA of the cervical vessels was compromised by motion artifact but no gross occlusions. CT of the head neck was performed these demonstrate no significant narrowing of the carotid arteries and neck. Left vertebral artery is developmentally small. Right vertebral artery is dominant is the main contributor to the formation of the basilar artery. Basilar artery is small diameter due to developmental persistent circulation from the posterior communicating arteries on both sides. The [place] was patent. No high-grade stenosis or occlusion of the main arteries were seen including the right MCA. No aneurysm was seen. Echocardiogram was performed on 03/26/2022 demonstrated normal left ventricular ventricular size and wall thickness with an LVEF of 58%. He had segmental wall motion abnormality in the apex which was akinetic. No thrombus was seen. When compared to previous echo from 11/2018 apical wall motion abnormalities are now more apparent. Patient had taken 9 tablets of aspirin 81 mg prior to coming to the hospital. Patient had previous allergy reaction to Plavix and therefore on presentation emergency department he was not put on dual antiplatelet therapy. Neurology consultation was obtained with Dr. Chuyita Gama. See her consult note for details. Patient's atorvastatin was increased from 40 mg daily to 80 mg daily. Patient received physical therapy and Occupational Therapy and speech therapy. Patient continued to exhibit some left-sided hemineglect as noted upon evaluation of higher executive functions such as use of his cell phone as well as performing clock face exam in which he incorrectly put all the numbers in the clock on the right side of the clock. Physical therapy cleared him as he showed good strength and gait and balance and did not require further physical therapy. Discharge recommendations from Dr. Gama are noted in her progress note from 03/28/2022 please see her note for details. In summary she recommended that he have a BLANCA to rule out an apical thrombus. She made the referral to [facility] cardiology to have this done. She also recommended a 30-day cardiac event recorder which I ordered upon discharge however the RT therapist on duty on the day of discharge was not trained in placement of the event recorder therefore the patient will have to come back to [facility] to have this placed. As the patient has an allergic reaction to clopidogrel it was presumed that he cannot take ticagrelor therefore Aggrenox was recommended. Aggrenox is not kept in stock at [facility] therefore he was discharged with a prescription for Aggrenox 1 tablet twice a day along with aspirin 81 mg daily. If his BLANCA shows he has a thrombus then will be recommended that he be started on Xarelto. However because of the microhemorrhages she is not recommending anticoagulation with a DOAC for at least 14 days poststroke. It is recommended that he not drive because of his left hemineglect. She recommends formal visual field assessment by an safety teacher as an outpatient. She recommended follow-up in the neurology clinic in 4 to 6 weeks. Patient also would like a second opinion and referral to [facility] neurology upon discharge which she facilitated. Home Meds and New Rx's Prescriptions: New aspirin-dipyridamole 25-200 mg capsule, ER multiphase 12 hr 1 cap PO BID Qty: 60 3RF Continued sertraline 50 mg tablet 50 mg PO DAILY Qty: 90 3RF albuterol sulfate [Ventolin HFA] 90 mcg/actuation HFA aerosol inhaler 2 puff IH Q4H PRN (Reason: shortness of breath or wheezing) Qty: 8.5 1RF Rx Instructions: Dispense with spacer acetaminophen 500 mg tablet 500 mg PO Q6H PRN aspirin [Adult Low Dose Aspirin] 81 mg tablet,delayed release (DR/EC) 81 mg PO DAILY ezetimibe [Zetia] 10 mg tablet 10 mg PO DAILY Qty: 90 3RF metoprolol tartrate 25 mg tablet 25 mg PO BID Qty: 180 3RF Rx Instructions: CAD, BP Changed atorvastatin 40 mg tablet 80 mg PO QHS Qty: 90 3RF Rx Instructions: Cholesterol & CAD Discharge Instructions Instructions: Low Fat Diet (DC), Heart Healthy Diet (DC), Self Care Measures After a Stroke (DC), Right Hemispheric Stroke (GEN) Additional Instructions: You were found to have a ischemic stroke involving a large portion of the right hemisphere of the brain (parietal, temporal and frontal lobes w/ subcortical involvement). Your symptoms primarily involved left sided neglect and confusion involving higer cognitive skills such as using your phone, using the remote however you also initially exhibited some balance issues from your left side. However, you were evaluated by physical therapy and cleared with normal gait and balance. They do not feel that you need outpatient physical therapy. You were also seen by speech and language pathologist who feels that you still have some cognitive and communicative deficits (visuospatial/executive functioning, delayed recall, attention, and language (expressive > receptive; patient has intermittent difficulties with multistep verbal directions, requires additional processing time/repetition/visual cues for full comprehension). Patient does report that he feels he doesn't always comprehend what others are saying or asking him to do; patient is likely to benefit from further [employer] assessment for cognitive-communication abilities / aphasia with patient/caregiver/family training and education. Speech pathologist did not feel that you demonstrate any risks for aspiration/choking and you do not need any diet modifications. It is recommended that you follow up w/ outpatient speech and language pathologist and also have follow up w/ local neurologist, Dr. Gama as well as follow up w/ [facility] neurology and [facility] cardiology. You had an echocardiogram that demonstrated overal normal heart function and normal valves but you have an area of the tip of the left ventricular apex that is akinetic (i.e. the wall does not contract). This can be a source for a thrombus (blood clot) to develope although none was seen on the surface echocardiogram (transthoracic echocardiogram). Dr. Gama wants you to have a transesophageal echocardiogram in the next 2 weeks (this is an echocardiogram done by a ruling machine operator in which a scope is placed in your throat in the esophagus so more detailed pictures can be taken of the heart. You are being started on Aggrenox 25/200 mg one capsule twice a day. This is a potent antiplatelet drug combination of aspirin and dipyridamole. However, you should continue your aspirin 81 mg daily in addition to the Aggrenox. If a thrombus is found on the BLANCA exam then you will be switched to a D.O.A.C. (direct oral acting anticoagulant such as Eliquis, Pradaxa or Xarelto). Because you had some ronny-infarct micro-hemorrhages around the stroke, you are not eligible for a DOAC for the next week to allow stabilization of these microhemorrhages. If you have any sudden headaches, nausea, vomiting, acute visual changes, confusion/diorientation, loss of balance, weakness or numbness, seek immediate medical attention at the nearest emergency room. This could represent progression of your stroke or bleeding. Because your cholesterol is rather high (total cholesterol 294, LDL 213, triglycerides 161) you should increase your atorvastatin to 80 mg nightly and you should see an filtration operator to discuss going on a biologic agent to lower your cholesterol (examples include Praluent or Repatha) Stand Alone Forms: Nursing Discharge Form Referrals: [facility] Internal Medicine [Provider Group] (PLEASE KEEP YOUR APPOINTMENT WITH [facility] INTER[facility] ) Luz Maria Alas [SPEECH LANGUAGE PATHOLOGIST] - (PLEASE REACH OUT TO OFFICE TOMORROW FOR FOLLOW UP SPEECH APPOINTMENT. PLEASE REACH OUT TO [facility] NEUROLOGY AND CARDIOLOGY FOR FOLLOW UP APPOINTMENTS) Chuyita Gama MD [ [facility] STAFF PHYSICIAN] - (PLEASE CALL THE OFFICE TOMORROW FOR A FOLOW UP APPOINTMENT) Activity:: Activity as Tolerated Equipment/Supplies:: No Equipment Needed Diet:: low cholesterol diet Discharge Orders Discharge Orders: Discharge Order (Routine); Ordered 03/28/22 Ordered By: Wayne Holman Discharge Data Discharge Date/Time-TO BE ENTERED AT DEPARTURE: 03/28/22 17:59 DS: Summary Time Spent with Patient providing and/or coordinating discharge services: Greater than 30 minutes Specific discharge activities: Interview/exam of patient; review of discharge instructions, completion of prescriptions/discharge instructions; discussion w/ nursing and CM; documentation of hospital visit Status at Discharge Functional status at discharge: independent ambulation Overall status at discharge: patient is progressing back to baseline Mental Status: mental status grossly normal Speech and Movement: speech and movement normal Mood: congruent mood Affect: normal affect Exam Narrative Exam Narrative: Олег is a alert and oriented HEENT he exhibits no facial asymmetry and no dysarthric speech. Full EOMI, visual barragan grossly intact, tongue is midline without fasciculation, palate elevates symmetrically. Normal phonation is normal. Neck is supple nontender normal range of motion. Motor exam of upper and lower extremities grossly intact with normal proximal and distal muscle strength. Grossly normal sensation to light touch. Negative Romberg. Negative pronator drift. Gait appears to be stable. He was able to walk several feet without assistance within his room and was able to turn quickly and return back to his bed without loss of balance. Psych Mental Status: mental status grossly normal Speech and Movement: speech and movement normal Mood: congruent mood Affect: normal affect DS: Data Vitals/I&O Vitals and I&O: Vital Signs Temperature 36.7 C 03/28/22 15:44 Temperature Source Tympanic 03/28/22 15:44 Pulse 65 03/28/22 15:44 Pulse Rhythm Regular 03/28/22 09:08 Pulse 72 03/26/22 17:30 Respiratory Rate 16 03/28/22 15:44 Respiratory Effort Non-Labored 03/28/22 09:08 Respiratory Depth Normal 03/28/22 09:08 Respiratory Pattern Normal 03/28/22 09:08 Blood Pressure 100/64 03/28/22 15:44 Blood Pressure Mean 117 03/26/22 16:46 Blood Pressure Position Sitting 03/26/22 11:42 Pulse Oximetry 96 03/28/22 15:44 Oxygen Delivery Method Room Air 03/28/22 15:44 Oxygen Flow Rate 0 03/28/22 15:44 Pain Level 0 03/28/22 07:22 Comment 03/27/22 22:55 Intake & Output 03/27/22 03/28/22 03/28/22 23:59 11:59 23:59 Intake Total 200 / 200 Balance 200 / 200 Weight 90.3 kg Intake: Oral 200 / 200 Other: Urine Appearance Clear Clear Comment voids independently pt has been voiding independently. 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) F Sessile colonic polyp (Acute) Diverticulosis (Acute) Obstructive sleep apnea (adult) (pediatric) (Chronic) 03/30/2020 Anuja Vicente [employer] CPAP Impaired fasting glucose (Acute) 5.7% 03/10/2020 Periodontal disease (Acute) Needs teeth extractions; underinsured; referred to [facility] 03/08/2020 History of tobacco abuse (Chronic 10/02/16) CAD (coronary artery disease) (Chronic 09/27/16) [facility] Cardiology Medical History Adenomatous polyp of ascending colon (12/16/16) sessile serrated Chondromalacia patellae, right knee Depression PTSD; sees counselor in [place] [facility] Sertraline Hand paresthesia History of alcohol abuse (09/27/16) MS (myocardial infarction) (07/24/07) Age 41 Patellar maltracking Positive cardiac stress test s/p CABG x4 PTSD (post-traumatic stress disorder) [facility] Surgical History Cardiac Catheterization and Placement of Coronary Artery Stents (07/24/07) x2 placed 2006 Last seen in cardiology 03/2020 Colonoscopy - IV Sedation (12/13/16) H/O four vessel coronary artery bypass graft (03/13/21) [facility] 03/16/21 Family History Mother Essential hypertension CAD (coronary artery disease) Myocardial infarction x2 Stroke Father , Colon CA at age 62. Diabetes Type II CAD (coronary artery disease) Neoplasm Colon Sister Stroke Sister MS (multiple sclerosis) Sister Essential hypertension Hyperlipidemia TIA (transient ischemic attack) Social History Smoking/Tobacco Use Status: Current every day Tobacco Type: smokeless tobacco Quit status: has quit before Smoking risk assessment performed?: Yes Alcohol Intake: current Alcohol Intake frequency: 3 or more drinks per day Alcohol type: beer Drug use: Never Substance use type: does not use Adopted: No Caregiver/Support person: No Foster care: No Household members: none Housing: house Number of Children: 3 number of grandchildren: 1 Communication Needs: None current occupation: [employer] Current gender identity: male What is your relationship status?: Panel score (0-1 are the most socially isolated patients): 0 What type of physical activity do you participate in: walking Duration: 30-45 minutes/day Frequency: 5-6 times per week Special kyaw needs: No Seatbelt use: always Drive intox or ride w/intox racing car driver: No Working smoke detector in home: Yes Fire extinguisher in home: Yes Carbon monox detector in home: Yes Do you feel safe at home: Yes Do you feel safe in your relationship?: Yes
--- NOTE | 2022-03-28 19:27 | CMDISCH_ITS ---
- If Service Date Differs Date of service: 03/28/22 Time of Service: 19:27 LACE Index Scoring Tool - Questions: Length of Stay (in days): 2 Acuity (Admit via E.D.?): Yes Comorbidities: Cerebrovascular Disease E.D. Visits: 1 - Answers: Total Score: 7 Risk of Readmission: Low Risk Care Management Discharge Reason for Hospitalization: CVA Discharge Plan: Олег returned home today with no new services. He does not have insurance, CM connected with [employer], who stated that he does not qualify for JI, and is outside of the window to apply for insurance, as he retired more than 60 days ago. He will have to apply at open enrollment, with the anticipated first day of coverage on 07/28/22. CM assisted in locating a goodrx coupon for his new prescription. His daughter drove him home and will support his recovery by helping him manage his follow up care. He will follow up with his PCP and discharge plan of care. He was happy to return home. Patient/Family Education Needs: Review discharge instructions and limitations, discussion of self care needs including ask me three.
== END 2022-03-28 17:59 | disposition home or self-care (01) | DRG 64 ==
LOC: ER 18:19 → MS 18:34
PROVIDERS: Admitting Provider Internal Medicine; Emergency Provider Physician Assistant; PCP Nurse Practitioner Adult Health; Visit Provider Internal Medicine
DX: I63.89 Other cerebral infarction (principal); I61.8 Other nontraumatic intracerebral hemorrhage; R41.4 Neurologic neglect syndrome; F10.10 Alcohol abuse, uncomplicated; E78.89 Other lipoprotein metabolism disorders; I10 Essential (primary) hypertension; R73.01 Impaired fasting glucose; I25.10 Atherosclerotic heart disease of native coronary artery without angina pectoris; G47.33 Obstructive sleep apnea (adult) (pediatric); F32.A Depression, unspecified; F43.10 Post-traumatic stress disorder, unspecified; I25.2 Old myocardial infarction; F17.290 Nicotine dependence, other tobacco product, uncomplicated; Z95.5 Presence of coronary angioplasty implant and graft; Z80.0 Family history of malignant neoplasm of digestive organs; Z79.82 Long term (current) use of aspirin; R41.89 Other symptoms and signs involving cognitive functions and awareness
CPT/HCPCS: 36415; 70496; 70498; 70544; 70547; 80048; 80053; 80061; 80076; 80307; 87635; 92610; 92611; 96361; 96365; 96375; 97110; 97162; 97165; 97530; 99285; J1650; 70450; 70551; 71046; 74221; 80320; 80329; 81003; 82140; 83036; 83605; 83735; 84100; 84484; 85025; 92523; 93306; 99222; 99232; 99238; J0131; J3490

== ENCOUNTER 2022-04-02 16:27 | Emergency (ER) | payer SELFPAY ==
[2022-04-02 16:31] VITALS: BP 150/82; PULSE 61; RESP 18; TEMP 36.4; O2SAT 98
--- NOTE | 2022-04-02 16:45 | DI.CT_ITS ---
Exam(s) CT HEAD WO EXAM: CT HEAD WO CLINICAL HISTORY: headache, r/o acute disease. TECHNIQUE: Imaging Protocol: Axial computed tomography images with coronal and sagittal reformatted images were created and reviewed COMPARISON: CT CT BRAIN NECK CTA from 03/26/[address] HEAD WO from 03/26/2022 FINDINGS: Ventricles and Extra axial spaces: Normal in size and morphology for the patient's age. Hemorrhage: None. Cerebral parenchyma: There is an old right MCA distribution infarct. No acute territorial infarct is seen. There are areas of decreased attenuation in the white matter likely reflecting small vessel i schemic disease. Midline shift: None. Brainstem/Cerebellum: Normal. Calvarium: Normal. Visualized Paranasal sinuses/Mastoids: There is mild mucosal thickening in the left maxillary sinus. The remaining visualized paranasal sinuses are clear. The mastoid air cells are clear. Soft Tissues: Unremarkable. IMPRESSION: No acute intracranial process. RADIATION DOSE DELIVERED: 758.86mGy.cm Total DLP DATA REPOSITORY: All CT scans at this facility are submitted to the National Radiology Data Registry (NRDR) Dose Index Registry (DIR) with the [employer] (ACR). RADIATION OPTIMIZATION: All CT scans at this facility use at least one of these dose optimization te chniques: automated exposure control; mA and/or kV adjustment per patient size (includes targeted exa ms where dose is matched to clinical indication); or iterative reconstruction.
--- NOTE | 2022-04-02 17:17 | DI.VRAD_ITS ---
PROCEDURE INFORMATION: Exam: CT Head Without Contrast Exam date and time: 04/02/2022 4:54 PM Age: 56 years old Clinical indication: Headache R/O acute disease TECHNIQUE: Imaging protocol: Computed tomography of the head without contrast. Radiation optimization: All CT scans at this facility use at least one of these dose optimization techniques: automated exposure control; mA and/or kV adjustment per patient size (includes targeted exams where dose is matched to clinical indication); or iterative reconstruction. COMPARISON: MR BRAIN WO 03/26/2022 2:56 PM FINDINGS: Brain: There is no acute intracranial hemorrhage, mass effect or midline shift. There is no large acute territorial cerebral infarct. White matter hypodensity predominantly in the right frontal and right temporal lobes are likely secondary to prior infarct. Small foci of cortical hyperdensity in this region may be secondary to mild cortical laminar necrosis. Cerebral ventricles: No ventriculomegaly. Paranasal sinuses: There is mild mucosal thickening in the left maxillary sinus partially visualized. Mastoid air cells: The mastoid air cells are unremarkable. Bones/joints: No acute fracture. Soft tissues: No significant subcutaneous soft tissue abnormality. IMPRESSION: 1. No acute intracranial hemorrhage, mass effect or midline shift. 2. Evidence of prior right MCA territory infarct. Dictated and Authenticated by: Naheed Zambrano MD. Ordering:JAISON Aguayo MD
--- NOTE | 2022-04-02 17:24 | ED.GENADUL_ITS ---
Discharge Plan Disposition Patient Disposition: HOME Condition: Improving Discharge Details Clinical Impression: Headache Primary Care Provider: Tammy Chery ED Provider: Dede Norris Home Meds and New Rx's Prescriptions: Continued sertraline 50 mg tablet 50 mg PO DAILY Qty: 90 3RF albuterol sulfate [Ventolin HFA] 90 mcg/actuation HFA aerosol inhaler 2 puff IH Q4H PRN (Reason: shortness of breath or wheezing) Qty: 8.5 1RF Rx Instructions: Dispense with spacer acetaminophen 500 mg tablet 500 mg PO Q6H PRN aspirin [Adult Low Dose Aspirin] 81 mg tablet,delayed release (DR/EC) 81 mg PO DAILY ezetimibe [Zetia] 10 mg tablet 10 mg PO DAILY Qty: 90 3RF metoprolol tartrate 25 mg tablet 25 mg PO BID Qty: 180 3RF Rx Instructions: CAD, BP aspirin-dipyridamole 25-200 mg capsule, ER multiphase 12 hr 1 cap PO BID Qty: 60 3RF atorvastatin 40 mg tablet 80 mg PO QHS Qty: 90 3RF Rx Instructions: Cholesterol & CAD Discharge Instructions Instructions: General Headache (ED) Additional Instructions: Your blood tests and imaging today are reassuring and show no evidence of acute concerning or significant findings. Continue your regular medications as directed. Do not take any NSAIDs such as ibuprofen, Motrin, Advil or Aleve. You can take Tylenol as needed and directed for your headache. Follow-up with your scheduled appointment with neurology Dr. Gama on May 13. Return immediately to the emergency department if you develop any worsening or new concerning symptoms. Referrals: Chuyita Gama MD [ [facility] STAFF PHYSICIAN] - Discharge Data Discharge Physician: Dede Norris Medical Decision Making 56-year-old male who is 1 week status post large right cerebellar ischemic stroke with a history of hypertension, OH, daily alcohol abuse presents for headache since discharge from the hospital 5 days ago. Case discussed with Dr. Gama who recommends a noncontrast CT head to rule out hemorrhage or mass-effect. Patient referred for noncontrast CT head which was negative for acute findings. No recommendations for CTA head and neck or MRI. Recommends holding ibuprofen. If patient continues to feel better, will plan for discharged home with follow-up with neurology at [facility] and with Dr. Gama on his scheduled appointment on May 13. Labs reviewed and unremarkable. Patient given fluids and IV Tylenol and denied any return of headache. Patient is requesting to go home. Advised to hold on any NSAIDs at this time. Can take Tylenol as needed and directed for headache. Advised to follow-up with his appointment with Dr. Gama on May 13. Usual and customary return precautions given prior to discharge. Medical Records Medical records reviewed: Yes I reviewed the patient's medical records. Imaging Data Radiologic Study: Radiologist's impression: CT Head Without Contrast Exam date and time: 04/02/2022 4:54 PM Age: 56 years old Clinical indication: Headache R/O acute disease TECHNIQUE: Imaging protocol: Computed tomography of the head without contrast. Radiation optimization: All CT scans at this facility use at least one of these dose optimization techniques: automated exposure control; mA and/or kV adjustment per patient size (includes targeted exams where dose is matched to clinical indication); or iterative reconstruction. COMPARISON: MR BRAIN WO 03/26/2022 2:56 PM FINDINGS: Brain: There is no acute intracranial hemorrhage, mass effect or midline shift. There is no large acute territorial cerebral infarct. White matter hypodensity predominantly in the right frontal and right temporal lobes are likely secondary to prior infarct. Small foci of cortical hyperdensity in this region may be secondary to mild cortical laminar necrosis. Cerebral ventricles: No ventriculomegaly. Paranasal sinuses: There is mild mucosal thickening in the left maxillary sinus partially visualized. Mastoid air cells: The mastoid air cells are unremarkable. Bones/joints: No acute fracture. Soft tissues: No significant subcutaneous soft tissue abnormality. IMPRESSION: 1. No acute intracranial hemorrhage, mass effect or midline shift. 2. Evidence of prior right MCA territory infarct. Lab Data Lab results reviewed: Yes I reviewed the patient's lab results. Labs: Laboratory Tests Range/Units 04/02/22 04/02/22 17:30 17:30 WBC (4.4-10.8) 10^3/uL 9.62 RBC (4.36-5.78) 10^6/uL 4.92 Hgb (13.5-17.5) g/dL 15.3 Hct (40.0-50.0) % 44.9 MCV (80-95) fL 91 MCH (27.0-33.0) pg 31.1 MCHC (32.0-36.0) % 34.1 RDW (11.8-14.1) % 12.6 Plt Count (130-400) 10^3/uL 293 MPV (8.0-11.0) fL 10.5 Immature Gran % 0.1 Neutrophils % 64.2 Lymphocytes % 22.9 Monocytes % 9.5 Eosinophils % 2.6 Basophils % 0.7 Nucleated RBC % (0.0-0.3) % 0.0 Absolute Neutrophils (1.2-6.7) 10^3/uL 6.18 Absolute Lymphocytes (1.2-3.4) 10^3/uL 2.20 Absolute Monocytes (0.1-0.8) 10^3/uL 0.91 H Absolute Eosinophils (0.0-0.7) 10^3/uL 0.25 Absolute Basophils (0.0-0.2) 10^3/uL 0.07 Sodium (136-145) mmol/L 140 Potassium (3.5-5.1) mmol/L 4.1 Chloride (98-107) mmol/L 105 Carbon Dioxide (21.0-32.0) mmol/L 26.9 Anion Gap (3-11) mmol/L 8.1 BUN (7-18) mg/dL 21 H Creatinine (0.70-1.30) mg/dL 1.1 Est GFR (CKD-EPI 2020) (mL/min/1.73m2) 78.30 Glucose (74-106) mg/dL 103 Calcium (8.5-10.1) mg/dL 8.7 Magnesium (1.8-2.4) mg/dL 1.8 Total Bilirubin (0.2-1.0) mg/dL 0.3 AST (15-37) U/L 20 ALT (16-63) U/L 45 Alkaline Phosphatase (46-116) U/L 76 Troponin I (<or=60) ng/L < 50 Total Protein (6.4-8.2) g/dL 7.2 Albumin (3.4-5.0) g/dL 3.7 ECG Data Attestation: I personally reviewed and interpreted this ECG (s) as follows: Interpretation: Rate of 54, sinus, no STEMI. HPI General Mode of arrival: ambulatory . Date/Time Provider Initiated Documentation: 04/02/22 16:39 . Limitations to Documentation: no limitations . Information obtained by: patient . HPI Narrative: Patient is a 56-year-old male who is 1 week status post large right cerebellar ischemic stroke with a history of alcohol abuse, hypertension, OH presents for headache since discharge from the hospital 5 days ago. Patient states the headaches are occurring twice daily, mainly in the morning and evening and then completely resolved. He describes them as a dull ache located on the right side of his head. He currently denies any headache. He states he has been taking his aspirin as directed but has not yet started his Aggrenox which she picked up today. He states he has been taking Aleve for his headaches with complete resolution. He denies any blurry vision, slurred speech, chest pain, shortness of breath, nausea, vomiting or dizziness. Related Data Home Medications Medication Instructions Recorded Confirmed sertraline 50 mg tablet 50 mg PO DAILY #90 tabs 07/10/20 04/02/22 albuterol sulfate 90 mcg/actuation 2 puff inhalation Q4H PRN 08/28/20 04/02/22 aerosol inhaler (Ventolin HFA) shortness of breath or wheezing #8.5 grams acetaminophen 500 mg tablet 500 mg PO Q6H PRN 03/20/21 04/02/22 aspirin 81 mg tablet,delayed 81 mg PO DAILY 03/20/21 04/02/22 release (Adult Low Dose Aspirin) ezetimibe 10 mg tablet (Zetia) 10 mg PO DAILY #90 tabs 04/17/21 04/02/22 metoprolol tartrate 25 mg tablet 25 mg PO BID #180 tabs 07/04/21 04/02/22 aspirin 25 mg-dipyridamole 200 mg 1 cap PO BID #60 caps 03/28/22 04/02/22 capsule,ext.release 12 hr multiphase atorvastatin 40 mg tablet 80 mg PO QHS #90 tabs 03/28/22 04/02/22 Previous Rx's Medication Instructions Recorded sertraline 50 mg tablet 50 mg PO DAILY #90 tabs 07/10/20 albuterol sulfate 90 mcg/actuation 2 puff inhalation Q4H PRN 08/28/20 aerosol inhaler (Ventolin HFA) shortness of breath or wheezing #8.5 grams ezetimibe 10 mg tablet (Zetia) 10 mg PO DAILY #90 tabs 04/17/21 metoprolol tartrate 25 mg tablet 25 mg PO BID #180 tabs 07/04/21 aspirin 25 mg-dipyridamole 200 mg 1 cap PO BID #60 caps 03/28/22 capsule,ext.release 12 hr multiphase atorvastatin 40 mg tablet 80 mg PO QHS #90 tabs 03/28/22 Allergies Allergy/AdvReac Type Severity Reaction Status Date / Time clopidogrel bisulfate Allergy Intermediate Hives Verified 04/02/22 16:35 [From Plavix] General Stated Complaint: Headache WILL: 3 Review of Systems All systems reviewed & are unremarkable except as noted in HPI and below Constitutional Constitutional: Denies chills, Denies excessive sweating, Denies fatigue, Denies fever(s), Reports headache(s), Denies weakness and Denies weight loss Eyes Eyes: Reports system reviewed and no additional complaints, except as documented and Denies blurry vision ENT Ears, Nose, Mouth, and Throat: Denies vertigo, Denies dizziness, Denies otalgia, Reports headache(s), Denies nasal congestion, Denies sore throat and Denies throat swelling Cardiovascular Cardiovascular: Denies chest pain, Denies syncope, Denies rapid heart rate and Denies dyspnea Respiratory Respiratory: Denies chest congestion, Denies cough, Denies pain on inspiration and Denies dyspnea Gastrointestinal Gastrointestinal: Denies abdominal pain, Denies diarrhea and Denies vomiting Genitourinary Genitourinary: Denies hematuria, Denies dysuria and Denies flank pain Musculoskeletal Musculoskeletal: Denies back pain and Denies joint swelling Integumentary/Breasts Skin/Breast: Denies lesions and Denies rash Neurologic Neurologic: Denies behavioral changes, Denies confusion, Denies vertigo, Denies dizziness, Denies syncope, Reports headache(s), Denies localized weakness and Denies weakness Psychiatric Psychiatric: Denies behavioral changes, Denies confusion and Denies depression Endocrine Endocrine: Denies excessive sweating and Denies fatigue Hematologic/Lymphatic Hematologic/Lymphatic: Denies easy bruising and Denies lymphadenopathy Allergic/Immunologic Allergic/Immunologic: Denies throat swelling PFSH All Active Problems (Updated 04/02/22 @ 19:32 by Dede Norris DO) Headache (Acute) Jose Alejandro-neglect of left side (Acute) Acute cerebrovascular accident (CVA) (Acute) Right hemisphere, cerebral infarction (Acute) History of alcohol abuse (Acute) Familial hyperlipidemia (Chronic) Essential (primary) hypertension (Chronic) Tubular adenoma (Acute ~08/2020) 09/13/20 Fragments of tubulovillous aden[facility] [place] history of colorectal cancer (Chronic) F Sessile colonic polyp (Acute) Diverticulosis (Acute) Obstructive sleep apnea (adult) (pediatric) (Chronic) 03/30/2020 Anuja Vicente C.O.D. BILLER CPAP Impaired fasting glucose (Acute) 5.7% 03/10/2020 Periodontal disease (Acute) Needs teeth extractions; underinsured; referred to [facility] 03/08/2020 History of tobacco abuse (Chronic 10/02/16) CAD (coronary artery disease) (Chronic 09/27/16) [facility] Cardiology Medical History Adenomatous polyp of ascending colon (12/16/16) sessile serrated Chondromalacia patellae, right knee Depression PTSD; sees counselor in [place] [facility] Sertraline Hand paresthesia History of alcohol abuse (09/27/16) [place] (myocardial infarction) (07/24/07) Age 41 Patellar maltracking Positive cardiac stress test s/p CABG x4 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 Diabetes Type II CAD (coronary artery disease) Neoplasm Colon Sister Stroke Sister MS (multiple sclerosis) Sister Essential hypertension Hyperlipidemia TIA (transient ischemic attack) Social History Smoking/Tobacco Use Status: Current every day Tobacco Type: smokeless tobacco Quit status: has quit before Smoking risk assessment performed?: Yes Alcohol Intake: current Alcohol Intake frequency: 3 or more drinks per day Alcohol type: beer Drug use: Never Substance use type: does not use Adopted: No Caregiver/Support person: No Foster care: No Household members: none Housing: house Number of Children: 3 number of grandchildren: 1 Communication Needs: None 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 [employer] Current gender identity: male What is your relationship status?: Panel score (0-1 are the most socially isolated patients): 0 What type of physical activity do you participate in: walking Duration: 30-45 minutes/day Frequency: 5-6 times per week Special kyaw needs: No Seatbelt use: always Drive intox or ride w/intox experienced truck driver: No Working smoke detector in home: Yes Fire extinguisher in home: Yes Carbon monox detector in home: Yes Do you feel safe at home: Yes Do you feel safe in your relationship?: Yes Exam Const General: cooperative and healthy appearing Orientation: alert, awake and oriented x3 HENMT Head: normal to inspection Ears: hearing grossly normal bilaterally and external ears normal General nose exam: external nose normal Face and sinus: normal facial exam Mouth: oral mucosae normal Teeth and gingiva: dentition normal Throat: posterior oropharynx normal Eyes General: appearance normal, both eyes and all related structures Eyelids: eyelids normal Pupils: PERRL EOM: EOM intact bilaterally Neck Neck: normal visual inspection Lymphatic: no lymphadenopathy noted Chest Chest: normal inspection of the chest Resp Effort & Inspection: normal respiratory effort and able to speak in complete sentences Auscultation: clear to auscultation bilaterally Cardio Rate: regular rate Rhythm: regular rhythm GI Inspection: normal to inspection Palpation: soft, not firm, no guarding, no hepatosplenomegaly, no masses and nontender Auscultation: normal bowel sounds Skin General skin exam: no rashes or lesions noted Neuro General: patient alert, patient awake, patient oriented x3, moves all extremities and no meningeal signs Cranial Nerves: CN's II-XI intact bilaterally Cognition: normal cognition Speech: speech normal Gait: normal gait Motor: muscle tone normal throughout and strength 5/5 throughout Sensory Exam: no sensory deficits noted Extrem General: normal to inspection, full ROM and capillary refill normal Psych Appearance: grossly normal Mental Status: mental status grossly normal Speech and Movement: speech and movement normal Affect: normal affect Thought Process: normal Course Vital Signs Vital signs: Vital Signs Temperature 97.5 F L 04/02/22 16:31 Pulse 61 04/02/22 16:31 Respiratory Rate 18 04/02/22 16:31 Blood Pressure 150/82 H 04/02/22 16:31 Pulse Oximetry 98 04/02/22 16:31 Temperature 97.5 F L 04/02/22 16:31 Temperature Source Temporal Artery Scan 04/02/22 16:31 Pulse 61 04/02/22 16:31 Respiratory Rate 18 04/02/22 16:31 Respiratory Effort Non-Labored 04/02/22 16:36 Blood Pressure 150/82 H 04/02/22 16:31 Blood Pressure Position Sitting 04/02/22 16:31 Pulse Oximetry 98 04/02/22 16:31 Oxygen Delivery Method Room Air 04/02/22 16:31 Oxygen Flow Rate 0 04/02/22 16:31 PAWSS Have you Been Recently Intoxicated or Drunk Within the Last 30 days?: Yes Have you Ever Experienced Previous Episodes of Alcohol Withdrawal?: No Have you ever Experienced Withdrawal Seizures?: No Have you ever Experienced Delirium Tremens(DT)s?: No Have you ever undergone Alcohol Rehabilitation Treatment (i.e, inpt ot outpatient treatment programs)?: No Have you ever Experienced Blackouts?: No Have you ever Combined Alcohol with other Downers within the last 90 days?: No Have you ever Combined Alcohol with any other Substance of Abuse during the last 90 days?: No Positive Blood Alcohol level on Presentation? [PCS.BAL]: No Evidence of Increased Autonomic Activity (i.e. HR>120, tremor, sweating, agitation, nausea)?: No Result: 1
--- NOTE | 2022-04-02 17:30 | RT.EKG_ITS ---
APPROVED REPORT Exam: Resting ECG Reason for Exam: headache Patient Location: E HR:54 bpm ECG Measurements Heart Rate 54 AXIS IN 157 P 33 QRSd 89 QRS -2 QT 429 T 88 QTc 409 Conclusion Sinus bradycardia...rate< 60. Sinus. No STEMI. I have reviewed and interpreted ECG and agree with software generated interpretation.
[2022-04-02 17:44] LABS: Abs Immature Grans 0.01 10^3/uL (0.0-0.06); Absolute Basophil Count 0.07 10^3/uL (0.0-0.2); Absolute Eosinophil Count 0.25 10^3/uL (0.0-0.7); Absolute Monocyte Count 0.91 10^3/uL (0.1-0.8); Absolute Neutrophil Count 6.18 10^3/uL (1.2-6.7); Basophils % 0.7; Eosinophils % 2.6; HCT 44.9 % (40.0-50.0); HGB 15.3 g/dL (13.5-17.5); Immature Grans % 0.1; Lymphocytes % 22.9; MCH 31.1 pg (27.0-33.0); MCHC 34.1 % (32.0-36.0); MCV 91 fL (80-95); MPV 10.5 fL (8.0-11.0); Monocytes % 9.5; Neutrophils % 64.2; Platelet Count 293 10^3/uL (130-400); RBC 4.92 10^6/uL (4.36-5.78); RDW 12.6 % (11.8-14.1); RDW-SD 42.7 fL; WBC 9.62 10^3/uL (4.4-10.8)
[2022-04-02 17:58] LABS: ALT 45 U/L (16-63); AST 20 U/L (15-37); Albumin 3.7 g/dL (3.4-5.0); Alkaline Phosphatase 76 U/L (46-116); Anion Gap 8.1 mmol/L (3-11); BUN 21 mg/dL (7-18); Bilirubin, Total 0.3 mg/dL (0.2-1.0); CO2 26.9 mmol/L (21.0-32.0); CREATININE 1.1 mg/dL (0.70-1.30); Calcium 8.7 mg/dL (8.5-10.1); Chloride 105 mmol/L (98-107); Glucose 103 mg/dL (74-106); Magnesium 1.8 mg/dL (1.8-2.4); Potassium 4.1 mmol/L (3.5-5.1); Sodium 140 mmol/L (136-145); Total Protein 7.2 g/dL (6.4-8.2); Troponin I < 50 ng/L (<or=60)
[2022-04-02] MEDS: ACETAMINOPHEN 1,000 MG/100 ML BTL 400 MG IVPB (18:12)
[2022-04-02] MEDS: Normal Saline 1,000 ML 1000 ML IV (18:12)
[2022-04-02] MEDS: ACETAMINOPHEN 1,000 MG/100 ML BTL 400 MG (18:30)
[2022-04-02 20:14] VITALS: BP 137/86; PULSE 55; RESP 16; TEMP 36.4; O2SAT 98
[2022-04-02 20:19] VITALS: BP 137/86; PULSE 55; RESP 16; TEMP 36.4; O2SAT 98
== END 2022-04-02 20:19 | disposition home or self-care (01) ==
PROVIDERS: Emergency Provider Physician Assistant; PCP Nurse Practitioner Adult Health
DX: R51.9 Headache, unspecified (principal); I10 Essential (primary) hypertension; I25.2 Old myocardial infarction; F17.290 Nicotine dependence, other tobacco product, uncomplicated; Z79.82 Long term (current) use of aspirin
CPT/HCPCS: 80053; 93005; 96361; 96374; 99284; 70450; 83735; 84484; 85025; 93010; 99285; J0131

== ENCOUNTER 2022-04-08 04:15 | Outpatient (CLI) | payer SELFPAY ==
--- NOTE | 2022-04-12 16:24 | INDS_ITS ---
Date of service: 03/28/22 PT Notes Visit Reasons: Acute cerebrovascular accident (CVA) Physical Therapy Inpatient Initial Evaluation Date: 03/27/2022 Referring Doctor: Wayne Cotter MD PT Orders: PT CONSULT: Fall safety assessment Precautions: Fall. Standard. Activity as tolerated. Patient Profile/Admitting Diagnosis: Roger is a 56-year-old male who presented to the ED on 03/26/2022 with due to bizarre behavior and confusion as reported by family.? Patient is diagnosed with right hemisphere cerebral infarction and hemineglect of the left side.? PMHX: All Active Problems? 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 Cardiac Catheterization and Placement of Coronary Artery Stents (07/24/07) x2 placed 2006 Last seen in cardiology 03/2020 Colonoscopy - IV Sedation (12/13/16) H/O four vessel coronary artery bypass graft (03/13/21) [facility] 03/16/21 Social History/Home Situation: Lives alone in a private home with 4 steps to enter with rails on B sides.? In dependent with all aspects of ADLs prior to admission.? Son, daughter, and sister are good support.? 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 Equipment Owned/DME: None Subjective: Agreeable to PT consult.? States the he feels not at baseline strength-katz.? Does not feel as stable as he used to.? Feels a little clumsy.? Denies headache at time of evaluation but states that he did report having a headache to Nurse Liz earlier this morning.? Denies chest pain and lightheadedness. Objective: General Observation:? Seated at edge of bed.? Telemetry monitoring in place.? Mental Status: Alert and oriented as to person, place, time, and purpose .? Appears to have some delayed execution of task involving the L UE.? Pain: Denies Vital Signs: WNL as closely monitored by nursing staff ROM: Right Upper Extremity:? Shoulder Flexion WFL. Shoulder abduction WFL. Elbow flexion WFL. Wrist flexion WFL. Functional opening and closing of hand WFL. Left Upper Extremity:? Shoulder Flexion WFL. Shoulder abduction WFL. Elbow flexion WFL. Wrist flexion WFL. Functional opening and closing of hand WFL. Right Lower Extremity: Hip flexion WFL. Hip abduction WFL. Knee flexion WFL. Ankle dorsiflexion WFL. Ankle plantarflexion WFL. Left Lower Extremity: Hip flexion WFL. Hip abduction WFL. Knee flexion WFL. Ankle dorsiflexion WFL. Ankle plantarflexion WFL. Strength: Right Upper Extremity: Shoulder flexors 5/5. Shoulder abductors 5/5. Elbow flexors 5/5. Elbow extensors 5/5. Programming Manager strong. Left Upper Extremity: Shoulder flexors 5/5. Shoulder abductors 5/5. Elbow flexors 5/5. Elbow extensors 5/5. Programming Manager strong. Right Lower Extremity: Hip flexors 5/5. Hip abductors 5/5. Knee flexors 5/5. Knee extensors 55/5. Ankle dorsiflexors 5/5. Ankle plantarflexors 5/5. Left Lower Extremity: Hip flexors 4/5. Hip abductors 4/5. Knee flexors 5/5. Knee extensors 4/5. Ankle dorsiflexors 5/5. Ankle plantarflexors 5/5. Bed Mobility/Transfers: Rolling independent Supine to sit independent Sit to supine independent Sit to stand independent Stand to sit with independent Bed to reclining chair independent Reclining chair to bed independent Gait: Instructed patient with level surface ambulation of 300 feet requiring no physical assistance nor assistive device.? Mild path deviation noted.? Cathleen mildly decreased.? Patient reported feeling a little unstable although no loss of balance was seen. Balance: Static Sitting: Normal Dynamic Sitting: Normal Static Standing: Good Dynamic Standing: Good Assessment: Mild impairment with rapid alternating movement which may be related to mild L hemineglect.? Unable to maintain one legged stance due to instability.? May benefit from out patient PT services for more balance and coordination skilling to allow for full return to prior level of function. Patient presents with clinical signs and symptoms consistent with current/admitting diagnoses that have resulted to mobility limitations, gait instability, generalized weakness, and overall ADL decline as demonstrated by the following impairment level findings: 1.? Impaired coordination 2.? Impaired static and dynamic standing balance Impairments are contributing to the following functional limitations: 1.? Increased completion time for mobility ADL performance 2.? Increased risk for falls Goals: Goals X1 week 1. Independent gait on variable ground surfaces with use of no AD for at least 1000 feet without report of pain nor dyspnea 2. Normal standing static and dynamic balance DISCHARGE RECOMMENDATIONS: [] ? Home with no services [] [] ? Home with services [specify] [X] ? Home with outpatient PT.? Home when medically cleared by hospitalist.? OP PT to maximize balance and coordination that can reduce fall risk.? No equipment needs at this time. [] ? SNF for continued rehabilitation [] [] ? [facility] [] [] ? SNF versus LTC based on ability to participate and progress [] TREATMENT CODE/TIME: [place] Thank you for the opportunity to participate in the care of this patient. Fallon Marinelli PT, DPT, CLT [facility] [place], [place]
--- NOTE | 2022-05-09 08:50 | W.CARDEVENT ---
Date of service: 05/09/22 Time of Service: 08:50 Cardiac Event Recorder Referring Provider:: Wayne Holman Indications:: Stroke Cardiac Event Note: This is a 30-day cardiac event monitoring. The patient was monitored from April 08 through May 07, 2020 Predominant rhythm was sinus with an average heart rate of 66. Minimum was 54, maximum 110 There were rare ventricular ectopic beats There was no atrial fibrillation, no high-grade AV block, no pauses greater than 3 seconds
== END 2022-04-08 04:16 | disposition home or self-care (01) ==
LOC: RT 04:16
PROVIDERS: PCP Nurse Practitioner Adult Health; Visit Provider Internal Medicine
DX: I63.9 Cerebral infarction, unspecified (principal)
CPT/HCPCS: 93270

== ENCOUNTER 2022-07-17 02:10 | Outpatient (CLI) | payer SELFPAY ==
[2022-07-17 07:40] LABS: Hemoglobin A1C 5.5 % (<5.7)
[2022-07-17 08:18] LABS: Anion Gap 5.5 mmol/L (3-11); BUN 20 mg/dL (7-18); CO2 30.5 mmol/L (21.0-32.0); CREATININE 0.8 mg/dL (0.70-1.30); Calcium 8.7 mg/dL (8.5-10.1); Calculated LDL 68 mg/dL (<100); Chloride 106 mmol/L (98-107); Cholesterol 122 mg/dL (<200); Estimated GFR 103.22 (mL/min/1.73m2); Glucose 123 mg/dL (74-106); HDL Cholesterol 44 mg/dL (40-60); Potassium 4.3 mmol/L (3.5-5.1); Sodium 142 mmol/L (136-145); Triglyceride 54 mg/dL (<150)
== END 2022-07-17 02:11 | disposition home or self-care (01) ==
LOC: LBO 02:10
PROVIDERS: PCP Nurse Practitioner Adult Health; Referring Provider Nurse Practitioner Adult Health; Visit Provider Nurse Practitioner Adult Health
DX: I10 Essential (primary) hypertension (principal); R73.01 Impaired fasting glucose; E78.49 Other hyperlipidemia
CPT/HCPCS: 36415; 80048; 80061; 83036

== ENCOUNTER 2022-11-05 02:27 | Outpatient (CLI) | payer OTHER, SELFPAY ==
[2022-11-05 13:28] LABS: ALT 49 U/L (16-63); AST 21 U/L (15-37); Albumin 3.8 g/dL (3.4-5.0); Alkaline Phosphatase 94 U/L (46-116); Anion Gap 8.4 mmol/L (3-11); BUN 32 mg/dL (7-18); Bilirubin, Total 0.5 mg/dL (0.2-1.0); CO2 26.6 mmol/L (21.0-32.0); CREATININE 1.1 mg/dL (0.70-1.30); Calcium 9.4 mg/dL (8.5-10.1); Chloride 104 mmol/L (98-107); Estimated GFR 77.81 (mL/min/1.73m2); Folate 6.9 ng/mL (8.6-20.0); Glucose 133 mg/dL (74-106); Potassium 3.9 mmol/L (3.5-5.1); Sodium 139 mmol/L (136-145); Total Protein 7.4 g/dL (6.4-8.2); Vitamin B12 692 pg/mL (193-986)
== END 2022-11-05 02:28 | disposition home or self-care (01) ==
PROVIDERS: PCP Nurse Practitioner Adult Health; Referring Provider Nurse Practitioner Adult Health; Visit Provider Nurse Practitioner Adult Health
DX: R20.2 Paresthesia of skin (principal)
CPT/HCPCS: 36415; 80053; 82607; 82746

== ENCOUNTER 2022-12-12 08:52 | Day surgery (SDC) | payer OTHER, SELFPAY ==
[2022-12-12 09:06] VITALS: BP 118/81; PULSE 73; RESP 16; TEMP 36.3; O2SAT 98
--- NOTE | 2022-12-12 10:58 | ROE_ITS ---
Date of service: 12/12/22 Time of Service: 12:00 Operative Note Operative Note DATE OF PROCEDURE: 12/12/22 PRE-OP DIAGNOSIS: Right thumb and long finger trigger fingers POST-OP DIAGNOSIS: same PROCEDURE: Right long finger trigger release, CPT #51382 Right thumb trigger release, CP #[id number] SURGEON: Reynaldo Shine ANESTHESIA TYPE: Local By Surgeon ESTIMATED BLOOD LOSS: 5 TOURNIQUET TIME: 0 COMPLICATIONS: None Patient was transported to: PACU Patient's condition: stable Indications: Please see complete medical record for details. Procedure Description: The stretcher was brought into the operating room. The patient was positioned comfortably supine, awake, and the operative extremity on a hand table. Preoperative antibiotics were omitted for clean hand surgery. The correct patient, procedures, and side of the procedures were all verified prior to induction of local anesthesia. The hand was provisionally prepped and 20 cc of lidocaine containing epinephrine was distributed at both volar A1 ibis surgical sites of the thumb and long fingers. The right hand was prepped and draped in the usual sterile fashion. Appropriate local anesthesia was confirmed prior to beginning. A small longitudinal approach was taken to volar direct down to the A1 ibis of the long finger. The ibis margins were exposed and it was carefully released completely using tenotomy scissors. Appropriate release was confirmed proximally and distally as well as appropriate tendon excursion. The patient did not demonstrate any locking or catching following release. This wound was irrigated and a moist Ray-Susana placed covering. Appropriate anesthetic was confirmed with the thumb. A transverse in skin wrinkle direct approach was also taken here taking care to identify retract gently and protect the radial digital nerve which was adjacent to the approach. The ibis was exposed and similarly completely released with tenotomy scissors and appropriate release and tendon excursion confirmed. Patient also demonstrated no more locking or catching. Both wounds were copiously irrigated with normal saline. Hemostasis ap propriate. Incisions closed using 4-0 nylon horizontal mattress. Xeroform applied followed by gauze and gentle compressive Reinier bandage. The patient awoke from anesthesia without complication and was transferred to the recovery room in a stable condition.
--- NOTE | 2022-12-12 10:59 | W.PM.DSUDISC ---
Date of service: 12/12/22 Time of Service: 13:00 Discharge Plan Disposition Patient Disposition: Home Discharge Details Attending Provider: Reynaldo Shine Primary Care Provider: Tammy Chery Home Meds and New Rx's Prescriptions: Continued sertraline 50 mg tablet 50 mg PO DAILY Qty: 90 3RF ezetimibe [Zetia] 10 mg tablet 10 mg PO DAILY Qty: 90 3RF aspirin-dipyridamole 25-200 mg capsule, ER multiphase 12 hr 1 cap PO BID Qty: 180 3RF atorvastatin 80 mg tablet 80 mg PO QHS Qty: 90 3RF Rx Instructions: Cholesterol, LDL goal <70 metoprolol succinate 25 mg tablet extended release 24 hr 25 mg PO .bedtime Qty: 90 3RF Rx Instructions: CAD & BP acetaminophen 500 mg tablet 500 mg PO Q6H PRN aspirin [Adult Low Dose Aspirin] 81 mg tablet,delayed release (DR/EC) 81 mg PO DAILY folic acid 1 mg tablet 2 mg PO DAILY Qty: 180 3RF Discharge Instructions Additional Instructions: Surgery: Right thumb and index finger trigger releases Patient may return to work Friday with no restrictions Activity: Gently increase range of motion and use of the right hand. Recommend elevation and protection to minimize swelling and discomfort. Prescriptions: Resume Aggrenox tomorrow morning You may use [id number] Tylenol (acetaminophen) as needed pain Dressings: Leave dressing in place for 3 days. May then remove and leave open to air or cover incisions with Band-Aids. May get hand wet after 5 days. Follow-up: 10-[address] Shine You may take off the leg compression stockings this evening at home. You may also leave them on a few days longer if you have a history of leg swelling or edema. Let us know right away if you develop any redness, drainage, fevers, chest pain, or trouble breathing. Do not drink alcohol or drive for at least 24 hours after anesthesia. Please call the office during business hours with any questions or concerns. Stand Alone Forms: Oelna Castro (ROSALINAU) Discharge Orders Discharge Orders: Discharge Order (Routine); Ordered 12/12/22 Ordered By: Reynaldo Shine DS: Diagnosis Discharge Diagnosis (1) Trigger thumb, right thumb: Status: Acute (2) Trigger finger, right middle finger: Status: Acute
[2022-12-12] MEDS: Sodium Bicarbonate 50 MEQ/50 ML VIAL (11:33)
[2022-12-12] MEDS: Lidocaine 1% Multi-Dose W/EPI 1/100,000 50 ML VIAL (11:33)
[2022-12-12 11:51] VITALS: BP 125/83; PULSE 61; RESP 16; TEMP 36.5; O2SAT 97
== END 2022-12-12 12:08 | disposition home or self-care (01) ==
PROVIDERS: PCP Nurse Practitioner Adult Health; Visit Provider Student in an Organized Health Care Education/Training Program
PROC: (CPT 26055; principal; 2022-12-12 11:30)
DX: M65.311 Trigger thumb, right thumb (principal); M65.331 Trigger finger, right middle finger
CPT/HCPCS: 26055

== ENCOUNTER → 2023-09-23 02:37 | Outpatient (CLI) | payer OTHER, SELFPAY ==
--- NOTE | 2023-09-23 10:52 | DI.RAD_ITS ---
Exam(s) XR LUMBAR SPINE COMPLETE EXAM: XR LUMBAR SPINE COMPLETE CLINICAL HISTORY: LS spine pain,m54.50. TECHNIQUE: 2D digital imaging was performed. Five views. COMPARISON: No exams were available for comparison FINDINGS: BONES: No fracture or destructive lesion. Vertebral body heights are maintained. Mild facet degenera tive changes are noted at L4-5 and L5-S1. DISKS: Mild narrowing of the L3-4 disc space. Small endplate osteophytes are present at this level. The remaining intervertebral disc spaces are maintained. ALIGNMENT: Lumbar spinal alignment is within normal limits. SOFT TISSUE: The aorta is calcified and normal in diameter. IMPRESSION: Mild degenerative changes in the lower lumbar spine. DATA REPOSITORY: RADIATION DOSE DELIVERED:
== END ==
PROVIDERS: PCP Nurse Practitioner Adult Health; Visit Provider Emergency Medicine
DX: M54.50 Low back pain, unspecified (principal)
CPT/HCPCS: 72110

== ENCOUNTER 2024-01-27 08:32 | Outpatient (CLI) | payer OTHER, SELFPAY ==
--- OUTSIDE RECORDS SUMMARY | 2024-01-27 08:33 | XMS_ITS | Continuity of Care Document ---
Author Name Unknown Organization [facility] Address [address] [place] [id number] Care Team Providers Care Sales Agent [employer] Name Role Phone Tammy Nolan Primary Care Physician Roya Luong Unavailable Unavailable Karen Gates Unavailable Encounter [facility] [id number] Date(s): 11/05/23 - 11/05/[address] [address] Discharge Disposition: Home or Self Care Attending Physician: Hiram Gates DO Admitting Physician: Hiram Gates DO Referring Physician: Tammy Nolan Allergies, Adverse Reactions, Alerts Substance Criticality Severity Reaction Reaction Severity Status Plavix Unable to assess criticality Unknown Hives Active Assessment and Plan Diagnostic Tests Pending * Surgical Pathology [facility] 11/05/23 Functional Status 11/05/23 Living Situation Home independently ADLs Independent Medications aspirin 81 mg oral capsule 81 mg = 1 cap, Oral, Daily, 0 Refill(s) Start Date: 08/15/23 Status: Ordered aspirin-dipyridamole 25 mg-200 mg oral capsule, extended release 1 cap, Oral, BID, # 60 cap, 0 Refill(s) Start Date: 08/15/23 Status: Ordered atorvastatin 80 mg oral tablet 80 mg = 1 tab, Oral, Daily, 0 Refill(s) Start Date: 08/15/23 Status: Ordered ezetimibe 10 mg oral tablet 10 mg = 1 tab, Oral, Daily, 0 Refill(s) Start Date: 08/15/23 Status: Ordered folic acid 1 mg oral tablet 1 mg = 1 tab, Oral, Daily, 0 Refill(s) Start Date: 08/15/23 Status: Ordered metoprolol succinate 25 mg oral tablet, extended release 25 mg = 1 tab, Oral, BID, 0 Refill(s) Start Date: 08/15/23 Status: Ordered sertraline 50 mg oral tablet 50 mg = 1 tab, Oral, Daily, 0 Refill(s) Start Date: 08/15/23 Status: Ordered Problem List Condition Confirmation Course Effective Dates Status H ealth Status Informant Adenomatous polyp of colon Confirmed Active CAD - Coronary artery disease Confirmed Active Chondromalacia patellae 1 Confirmed Active Depression Confirmed Active Family history of cancer of colon Confirmed Active History of alcohol abuse Confirmed Active Hyperlipidemia Confirmed Active Myocardial infarction Confirmed 07/24/07 Active Obstructive sleep apnea Confirmed Active Paresthesia of hand Confirmed Active Patellar maltracking Confirmed Active Periodontal disease Confirmed Active PTSD - Post-traumatic stress disorder Confirmed Active 1right knee Procedures Procedure Date Related Diagnosis Body Site Status CABG x 4 - Coronary artery b ypass grafts x 4 1 03/07/21 Completed Cardiac catheterization 2 07/23/07 Completed Colonoscopy Completed Transesophageal echocardiogram Completed 1Dr. Polciciky at [facility] 2stent x 2 Vital Signs Most recent to oldest [Reference Range]: 1 2 Temperature Tympanic [36.6-38.1 Deg C] 3 6.1 Deg C *LOW* (11/05/23 8:13 AM) Temperature Temporal Artery [36-38 Deg C ] 36.3 Deg C (11/05/23 10:45 AM) Apical Heart Rate [60-100 bpm] 94 bpm (11/05/23 8:13 AM) Peripheral Pulse Rate [60-100 bpm] 80 bp m (11/05/23 10:45 AM) Respiratory Rate [12-24 br/min] 16 br/mi n (11/05/23 10:45 AM) Blood Pressure [90-140/60-90 mmHg] 117/8 0mmHg (11/05/23 10:45 AM) 129/99mmHg (11/05/23 8:13 AM) Weight Dosing 97.750 kg (11/05/23 8:13 AM) Height 167.64 cm (11/05/23 8:13 AM) Weight 97.75 kg (11/05/23 8:13 AM) Social History Social History Type Response Smoking Status Smoking tobacco use: Current everyday tobacco user;Smokeless tobacco user within last 30 days 1 entered on: 10/29/23 Sex Male 1chewing tobacco Discharge instructions * Yelena Ramirez RN: PERFORM Event Display: Discharge Instructions Authored Date: [id number] MORENITA YI :1965 Age:58 years Sex:Male Visit Date:11/05/2023 Primary Care Physician: [facility] Discharge Instructions We would like to thank you for allowing us to assist you with your healthcare needs. The following includes patient education materials and information regarding your injury/illness. Your Next Steps Instructions From Your Care Team Call with increased abdominal pain. ?? I will notify you when I get the pathology report back. ?? No driving or operating dangerous machinery today. ?? Diet as tolerated. Medications What How Much When Instructions Next Dose Unchanged aspirin (aspirin 81 mg oral capsule) 1 Capsules Oral (given by mouth) Every day Unchanged aspirin-dipyridamole (aspirin-dipyridamole 25 mg-200 mg oral capsule, extended release) 1 Capsules Oral (given by mouth) 2 times a day Unchanged atorvastatin (atorvastatin 80 mg oral tablet) 1 tab Oral (given by mouth) Every day Unchanged ezetimibe (ezetimibe 10 mg oral tablet) 1 tab Oral (given by mouth) Every day Unchanged folic acid (folic acid 1 mg oral tablet) 1 tab Oral (given by mouth) Every day Unchanged metoprolol (metoprolol succinate 25 mg oral tablet, extended release) 1 tab Oral (given by mouth) 2 times a day Unchanged sertraline (sertraline 50 mg oral tablet) 1 tab Oral (given by mouth) Every day Your Summary Your Care Team Admitting Physician - Hiram Gates DO Attending Physician - Hiram Gates DO Primary Care Physician - Tammy Nolan Referring Physician - Tammy Nolan Problems Ongoing - Any problem that you are currently receiving treatment for. Adenomatous polyp of colon CAD - Coronary artery disease Chondromalacia patellae Depression Family history of cancer of colon History of alcohol abuse Hyperlipidemia Myocardial infarction Obstructive sleep apnea Paresthesia of hand Patellar maltracking Periodontal disease PTSD - Post-traumatic stress disorder Tobacco use Discharge Vitals Temperature??(Temporal Artery) 97.3 ??F (36.3 ??C) Heart Rate??(Peripheral) 80 Respiratory Rate?? 16 Blood Pressure?? 117/80?? SpO2?? 93% Height?? 66.00 in (167.64 cm) Weight?? 215.54 lb (97.75 kg) Allergies Plavix??(Hives) Patient/[place] Tier Signature Patient Name:MORENITA YI I have received this information and my questions have been answered. Patient/[place] Tier Name: Patient/[place] Tier Signature: Relationship to Patient: Witness Name/Signature: Date: Electronically Signed on: 11/05/2023 11:32 AM EDT Signed by:DORA History and physical note * Hiram Gates DO: PERFORM Event Display: History and Physical Authored Date: [id number] MORENITA YI Celestine :1965 Age:58 years Sex:Male Visit Date:11/05/2023 Primary Care Physician: Tammy Nolan History of Present Illness The patient is here for colonoscopy.?? He has had no change in his medical history since being seenin the office. ??He has had no chest pain and no shortness of breath.?? His medications are all unchanged.?? He has had no??recent colds or illnesses. Review of Systems He has had no chest pain or shortness of breath. Physical Exam Vitals & Measurements T:??36.1?C ??(Tympanic)?? HR:??94??(Apical)?? BP:??129/99?? SpO2:??100%?? HT:??167.64??cm?? WT:??97.75??kg?? Pain Score:??0?? O2 Therapy:??Room air?? Heart is regular. ??Lungs are clear and equal. Assessment/Plan Patient for colonoscopy as described in H&P. Problem List/Past Medical History Ongoing Adenomatous polyp of colon CAD - Coronary artery disease Chondromalacia patellae Depression Family history of cancer of colon History of alcohol abuse Hyperlipidemia Myocardial infarction Obstructive sleep apnea Paresthesia of hand Patellar maltracking Periodontal disease PTSD - Post-traumatic stress disorder Tobacco use Historical No qualifying data Procedure/Surgical History ???CABG x 4 - Coronary artery bypass grafts x 4 (03/08/2021)???Cardiac catheterization (07/24/2007)???Colonoscopy???Transesophageal echocardiogram Medications Inpatient Electrolyte Solution (Plasma-Lyte/Normosol-R/Isolyte S) intravenous solution 1,000 mL, 1000 mL, IV Home aspirin 81 mg oral capsule, 81 mg= 1 cap, Oral, Daily aspirin-dipyridamole 25 mg-200 mg oral capsule, extended release, 1 cap, Oral, BID atorvastatin 80 mg oral tablet, 80 mg= 1 tab, Oral, Daily ezetimibe 10 mg oral tablet, 10 mg= 1 tab, Oral, Daily folic acid 1 mg oral tablet, 1 mg= 1 tab, Oral, Daily metoprolol succinate 25 mg oral tablet, extended release, 25 mg= 1 tab, Oral, BID sertraline 50 mg oral tablet, 50 mg= 1 tab, Oral, Daily Allergies Plavix??(Hives) Social History Alcohol Electronic Cigarette/Vaping Electronic Cigarette Use: Never. Substance Use Never Tobacco Current everyday tobacco user Tobacco Use:. Smokeless tobacco user within last 30 days Smokeless Tobacco use:.- Comments: chewing tobacco Electronically Signed on 11/05/23 09:33 AM Hiram Gates DO Patient Care team information Care Team Personnel Name: Karen Gates Position: Ambulatory - Biomedical Engineering Technologist Member Role: Biomedical Engineering Technologist Name: Tammy Nolan Position: No Access Member Role: Primary Care Physician Address: Address: [address] Name: Roya Luong Position: Ambulatory - Biomedical Engineering Technologist Member Role: Biomedical Engineering Technologist
[2024-01-27 08:59] LABS: Hemoglobin A1C 5.8 % (<5.7)
[2024-01-27 09:58] LABS: ALT 45 U/L (16-63); AST 21 U/L (15-37); Alkaline Phosphatase 79 U/L (46-116); Anion Gap 11.3 mmol/L (3-11); BUN 20 mg/dL (7-18); Bilirubin, Total 0.81 mg/dL (0.2-1.0); CO2 24.7 mmol/L (21.0-32.0); CREATININE 0.9 mg/dL (0.70-1.30); Calcium 9.3 mg/dL (8.5-10.1); Calculated LDL 89 mg/dL (<100); Chloride 105 mmol/L (98-107); Cholesterol 156 mg/dL (<200); Estimated GFR 98.38 (mL/min/1.73m2); Folate > 20.0 ng/mL (8.6-20.0); Glucose 110 mg/dL (74-106); HDL Cholesterol 47 mg/dL (40-60); Potassium 4.5 mmol/L (3.5-5.1); Sodium 141 mmol/L (136-145); Total Protein 7.3 g/dL (6.4-8.2); Triglyceride 101 mg/dL (<150); Vitamin B12 604 pg/mL (193-986)
== END 2024-01-27 08:33 | disposition home or self-care (01) ==
LOC: LBO 08:32
PROVIDERS: PCP Nurse Practitioner Adult Health; Visit Provider Physician Assistant
DX: I25.10 Atherosclerotic heart disease of native coronary artery without angina pectoris (principal); R73.01 Impaired fasting glucose; I10 Essential (primary) hypertension; E78.49 Other hyperlipidemia
CPT/HCPCS: 36415; 80053; 80061; 82607; 82746; 83036

== ENCOUNTER 2024-06-20 16:47 | Observation (INO) | payer OTHER, SELFPAY ==
[2024-06-20] VITALS (41 sets, daily range): BP systolic 130–179; BP diastolic 80–114; PULSE 61–88; RESP 11–30; TEMP 36.2–36.8; O2SAT 93–98
--- NOTE | 2024-06-20 16:45 | RT.EKG_ITS ---
APPROVED REPORT Exam: Resting ECG Reason for Exam: dizzy Patient Location: E HR:80 bpm ECG Measurements Heart Rate 80 AXIS HI 153 P 62 QRSd 79 QRS -9 QT 356 T 77 QTc 412 Conclusion Sinus rhythm...normal P axis, V-rate 60- 99 Normal [place]/Interval Nonspecific ST-T changes lateral leads There are no significant changes compared to prior EKG performed on 04/02/2022 at 17:39.
--- NOTE | 2024-06-20 16:48 | ED.GENADUL_ITS ---
Discharge Plan Disposition Patient Disposition: Admit to [facility] Condition: Good Discharge Details Clinical Impression: TIA (transient ischemic attack) Primary Care Provider: Tammy Chery ED Provider: Jefry Draper Bucks Meds and New Rx's Prescriptions: No Action aspirin-dipyridamole 25-200 mg capsule, ER multiphase 12 hr 1 cap PO BID Qty: 180 3RF atorvastatin 80 mg tablet 80 mg PO QHS Qty: 90 3RF Rx Instructions: Cholesterol, LDL goal <70 ezetimibe [Zetia] 10 mg tablet 10 mg PO DAILY Qty: 90 3RF metoprolol succinate 25 mg tablet extended release 24 hr 25 mg PO .bedtime Qty: 90 3RF Rx Instructions: CAD & BP acetaminophen 500 mg tablet 500 mg PO Q6H PRN aspirin [Adult Low Dose Aspirin] 81 mg tablet,delayed release (DR/EC) 81 mg PO DAILY folic acid 1 mg tablet 2 mg PO DAILY Qty: 180 3RF sertraline 50 mg tablet See Rx Instructions .ROUTE .COMPLEX Qty: 90 3RF Dose Instruction: TAKE ONE TABLET BY MOUTH EVERY DAY Rx Instructions: TAKE ONE TABLET BY MOUTH EVERY DAY HPI General Mode of arrival: ambulatory . Date/Time Provider Initiated Documentation: 06/20/24 16:48 . Limitations to Documentation: no limitations . Information obtained by: patient, RN notes reviewed and old records reviewed . HPI Narrative: Patient presents to ED with complaint of left hand numbness. Patient reports that about 1 hour prior to arrival developed left hand numbness and inability to use his hand. He also noted that he seemed to be dragging his left foot. Denies any confusion, vision change, speech change, right-sided symptoms. States he could use his left arm and left leg. He was unable to take his wallet out of his pant pocket however. He also definitely felt like he was dragging his foot on the floor. He does have a history of prior CVA and is on aspirin and Aggrenox. Denies any chest pain or pressure. Denies any shortness of breath, vomiting. Has a very slight headache. Feels that he is back to baseline and that symptoms lasted about 30 minutes. Related Data Home Medications ?Medication ?Instructions ?Recorded ?Confirmed acetaminophen 500 mg tablet 500 mg PO Q6H PRN 03/20/21 06/20/24 aspirin 81 mg tablet,delayed 81 mg PO DAILY 03/20/21 06/20/24 release (Adult Low Dose Aspirin) folic acid 1 mg tablet 2 mg (2 x 1 mg) PO DAILY #180 tabs 11/14/22 06/20/24 sertraline 50 mg tablet See Rx Instructions .Route 05/12/23 06/20/24 .COMPLEX #90 tabs aspirin 25 mg-dipyridamole 200 mg 1 cap PO BID #180 caps 05/21/23 06/20/24 capsule,ext.release 12 hr multiphase atorvastatin 80 mg tablet 80 mg PO QHS #90 tabs 05/21/23 06/20/24 ezetimibe 10 mg tablet (Zetia) 10 mg PO DAILY #90 tabs 05/21/23 06/20/24 metoprolol succinate 25 mg 25 mg PO .bedtime #90 tabs 05/21/23 06/20/24 tablet,extended release 24 hr Previous Rx's ?Medication ?Instructions ?Recorded folic acid 1 mg tablet 2 mg (2 x 1 mg) PO DAILY #180 tabs 11/14/22 sertraline 50 mg tablet See Rx Instructions .Route 05/12/23 .COMPLEX #90 tabs aspirin 25 mg-dipyridamole 200 mg 1 cap PO BID #180 caps 05/21/23 capsule,ext.release 12 hr multiphase atorvastatin 80 mg tablet 80 mg PO QHS #90 tabs 05/21/23 ezetimibe 10 mg tablet (Zetia) 10 mg PO DAILY #90 tabs 05/21/23 metoprolol succinate 25 mg 25 mg PO .bedtime #90 tabs 05/21/23 tablet,extended release 24 hr Allergies Allergy/AdvReac Type Severity Reaction Status Date / Time clopidogrel bisulfate (From Allergy Intermediate Hives Verified 06/20/24 16:53 Plavix) General WILL: 3 Review of Systems Narrative: Per HPI Exam Narrative Exam Narrative: Gen: WDWN male in NAD. Vitals per triage. HENT: NC/AT. Normal face. Eyes: PERRL and EOMI. VF in tact to confrontation. Neck: Supple, trachea midline. Chest: Normal respirations. Lungs CTAB. CV: RRR w/o murmur. Good radial pulses. Abd: S/ND/NT. Neuro: A+Ox3. Normal speech, mentation, gait. CN II-XII in tact. Normal strength. Normal sensation. FTN normal. Ext: No C/C/E. Medical Decision Making Patient presenting to ED with a 30-minute episode of left-sided neurologic symptoms that have since resolved. He does have prior history of CVA which affected the right side of the brain with left-sided symptoms. This occurred in 2021. Review of these records shows that he had a cerebral infarct and on MRI had microhemorrhage. He has subsequently recovered all function. Currently is NIH score is 0 here in the ED. However, his history certainly is consistent with TIA. IV established and laboratory studies sent. EKG obtained. CT head and CTA brain and neck ordered. Will obtain teleneuro consult. Patient has remained neurologically intact with no further events while here. His monitor has been sinus rhythm. Laboratory studies are unremarkable. EKG is sinus rhythm and unchanged from previous in 2021. Spoke with radiology regarding his imaging. Noncontrast head does show evidence of stroke in the right MCA distribution. Compared to his CT done in March after his stroke in February 2022 this was not present. However, it is in the distribution of the stroke seen on MRI at the very end of February 2022. There is no hemorrhage. CTA of brain and neck with minimal stenosis and no evidence of LVO. Discussed at [facility] with neurology. Does feel that focal seizure is a possibility but unlikely, does recommend EEG. Probable recurrent TIA in the same distribution as before and given minimal findings on CTA brain and neck concern for possibility of embolic event. Recommend telemetry overnight, Zio patch at discharge and echo. 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 Above has been discussed with patient and his son. Patient agreeable to admission. Case discussed with hospitalist. Patient accepted to hospitalist service for further evaluation and management. Medical Records Medical records reviewed: Yes I reviewed the patient's medical records. Medical records narrative: See [facility] Lab Data Lab results reviewed: Yes I reviewed the patient's lab results. Lab results narrative: See [facility] ECG Data Attestation: I personally reviewed and interpreted this ECG (s) as follows: Prior ECG tracings: available for review Interpretation: See EKG/[facility] PFSH All Active Problems (Updated 06/20/24 @ 19:26 by Jefry Draper MD) TIA (transient ischemic attack) (Acute) Hand paresthesia (Acute) FH: CABG (coronary artery bypass surgery) (Acute) Patellar maltracking (Acute) Lumbar spine pain (Acute) History of tobacco abuse (Chronic 10/02/16) Periodontal disease (Acute) Needs teeth extractions; underinsured; referred to [facility] 03/08/2020 Impaired fasting glucose (Acute) 5.7% 03/10/2020 Obstructive sleep apnea (adult) (pediatric) (Chronic) 03/30/2020 Anuja Vicente NP CPAP Sessile colonic polyp (Acute) Family history of colorectal cancer (Chronic) F Tubular adenoma (Acute ~08/2020) 09/13/20 Frag[facility]ill[facility] [place] [facility]fragments of TA in ascending and transverse colon-Dr Gates History of alcohol abuse (Acute) Trigger finger, right middle finger (Acute) Paresthesias in right hand (Acute) Folate deficiency (Acute ~10/2022) Right carpal tunnel syndrome (Acute) Trigger thumb, right thumb (Acute) Medical History (Updated 06/20/24 @ 19:26 by Jefry Draper MD) CVA (cerebral vascular accident) Familial hyperlipidemia Essential (primary) hypertension Depression PTSD; sees counselor in [place] [facility] Sert[facility]ine CAD (coronary artery disease) (09/27/16) [facility] Cardiology Jose Alejandro-neglect of left side Diverticulosis PTSD (post-traumatic stress disorder) [facility] 01/2019 Adenomatous polyp of ascending colon (12/16/16) sessile serrated 11/05/23 fragments of tubular adenoma ascending and transverse colon History of alcohol abuse (09/27/16) NV (myocardial infarction) (07/24/07) Age 41 Surgical History (Updated 11/21/23 @ 10:11 by Cassandra Mathews RN, RN) H/O four vessel coronary artery bypass graft (03/13/21) [facility] 03/16/21 Colonoscopy - IV Sedation (11/05/23) [facility] 11/05/23 with fragments of tubular adenoma from traverse and ascending colon Cardiac Catheterization and Placement of Coronary Artery Stents (07/24/07) x2 placed 2006 Last seen in cardiology 03/2020 Family History (Updated 05/21/23 @ 18:22 by Tammy Chery NP) Mother Essential hypertension CAD (coronary artery disease) Myocardial infarction x2 Stroke Father , Colon CA at age 62. Diabetes Type II CAD (coronary artery disease) Neoplasm Colon Sister Stroke Sister MS (multiple sclerosis) Sister Essential hypertension Hyperlipidemia TIA (transient ischemic attack) Social History Smoking/Tobacco Use Status: Current every day Tobacco Type: smokeless tobacco Quit status: has quit before Smoking risk assessment performed?: Yes Alcohol Intake: current Alcohol Intake frequency: 3 or more drinks per day Alcohol type: beer Drug use: Never Substance use type: does not use Adopted: No Caregiver/Support person: No Foster care: No Household members: none Housing: apartment Number of Children: 3 number of grandchildren: 3 Communication Needs: None Education Level: high school Do you need help understanding health information?: Never current occupation: [employer] Pets and animals: No Sexually active: Yes Do you think of yourself as: straight/heterosexual Current gender identity: male What is your relationship status?: How often do you talk on the phone with friends or family?: three or more times per week How often do you get together with friends or relatives?: twice per week Do you belong to any clubs or organized social groups?: yes Panel score (0-1 are the most socially isolated patients): 2 What type of physical activity do you participate in: walking Duration: 30-45 minutes/day Frequency: daily Sayra/Jain: Synagogue Special sayra needs: No Seatbelt use: always Helmet use: Yes Helmet use: never Drive intox or ride w/intox escort vehicle driver: No Working smoke detector in home: Yes Fire extinguisher in home: Yes Carbon monox detector in home: Yes Do you feel safe at home: Yes Do you feel safe in your relationship?: Yes
--- NOTE | 2024-06-20 17:00 | DI.CT_ITS ---
Exam(s) CT BRAIN NECK CTA EXAM: CT BRAIN NECK CTA CLINICAL HISTORY: left side weakness/numbness resolved. TECHNIQUE: Imaging Protocol: Axial CT angiography was performed with multi-slice acquisition and mu lti-planar and/or 3D reconstructions. CONTRAST MATERIAL: Intravenous: Omnipaque 350 Contrast volume:70 mL COMPARISON: MR MR BRAIN WO from 03/26/[address] HEAD WO from 04/02/2022 FINDINGS: CTA Neck W: Aortic arch anatomy: There is some partially calcified plaque at the origin of the brachiocephalic ar shannon off the aortic arch. No critical stenosis. No intimal flap evident. Anterior circulation: Both common carotid arteries ascend with normal luminal diameters. At the level the right carotid bulb there is some calcified plaque with mild stenosis not significant ly with extending into the proximal right ICA. Lesser amount of the same seen on the opposite-left s addis. Amount of stenosis on both sides at this level is estimated at less than 20 percent. Both inte rnal carotid arteries are demonstrated to be patent in the upper neck. Also patent in the skull base -carotid canals. Posterior circulation: Both vertebral arteries originate in conventional fashion off of the subclavian arteries. There is n o stenosis at the origin of the right subclavian artery. Mild stenosis at the origin the left verteb ral artery. The right vertebral artery is dominant and ascends in the foramen transverse area with luminal diamet er of 3 mm. The thinner left vertebral artery ascends with luminal diameter of 2 mm. At the skull base the basilar artery is formed by the dominant right vertebral artery. The left vert ebral artery appears to terminate at the skull base supplying the left posterior inferior cerebellar artery CTA Brain W: Anterior circulation: Both internal carotid arteries are patent in the skull base-carotid canals as well as within the cave rnous sinuses. The supraclinoid aspects of the ICAs are patent. Both A1 segments are patent as are the anterior cer ebral arteries and there is no evidence of aneurysm at the level of the anterior communicating artery . Both middle cerebral arteries are patent with no evidence of significant stenosis nor intraluminal th rombus. There also no aneurysms of these vessels. Posterior circulation: The basilar artery ascends in the midline. Distally it gives off patent bilateral superior cerebella r arteries. Above this level the basilar artery terminates as patent left posterior cerebral artery. The right p osterior cerebral artery is fed by a posterior communicating artery on the right side of the t[place] & haida-o f-Gomez which exhibits 2 mm luminal diameter. Similar size posterior communicating arteries also se en on the left side. There is no evidence of aneurysm at the tip of the basilar artery nor elsewhere in the mmaani-ub-Bwyj is. CT BRAIN: There are no skull fractures nor fluid in the visualized paranasal sinuses and mastoid air cells. There is no evidence of intracranial hemorrhage. However, there is abnormal hypodensity in the right hemisphere within the territory of the right middle cerebral artery extending from the posterior rig ht frontal lobe to the posterior parietal lobe. This finding was not evident on prior CT scan of Mar. There is no hemorrhage at this level. No ring enhancing lesions in the brain. No abno rmal meningeal enhancement. IMPRESSION: 1. The main finding here is evidence of nonhemorrhagic infarct in the territory of the right middle c erebral artery. This may not be new given the findings on MRI scan of 03/26/2022 which revealed rest ricted diffusion in the same areas of the right hemisphere appear. 2. There is mild plaque at the carotid bifurcations and proximal ICAs but estimated to be less than 20 percent bilaterally. 3. Right vertebral artery is dominant. Left vertebral artery terminates at the skull base. 4. No evidence of large vessel occlusion in the intracranial compartment. Both middle cerebral arter ies appear patent. Report called by myself to ER physician 06/20/2024 at 5:45 p.m. RADIATION DOSE DELIVERED: 2,263.15mGy.cm Total DLP DATA REPOSITORY: All CT scans at this facility are submitted to the National Radiology Data Registry (NRDR) Dose Index Registry (DIR) with the [employer] (ACR). RADIATION OPTIMIZATION: All CT scans at this facility use at least one of these dose optimization te chniques: automated exposure control; mA and/or kV adjustment per patient size (includes targeted exa ms where dose is matched to clinical indication); or iterative reconstruction.
[2024-06-20 17:10] LABS: Abs Immature Grans 0.02 10^3/uL (0.0-0.06); Absolute Basophil Count 0.03 10^3/uL (0.0-0.2); Absolute Eosinophil Count 0.32 10^3/uL (0.0-0.7); Absolute Lymphocyte Count 2.54 10^3/uL (1.2-3.4); Absolute Monocyte Count 0.61 10^3/uL (0.1-0.8); Absolute Neutrophil Count 5.35 10^3/uL (1.2-6.7); Basophils % 0.3 %; Eosinophils % 3.6 %; HCT 43.4 % (40.0-50.0); HGB 14.5 g/dL (13.5-17.5); Immature Grans % 0.2 %; Lymphocytes % 28.6 %; MCH 30.8 pg (27.0-33.0); MCHC 33.4 % (32.0-36.0); MCV 92 fL (80-95); Monocytes % 6.9 %; Neutrophils % 60.4 %; Platelet Count 280 10^3/uL (130-400); RBC 4.71 10^6/uL (4.36-5.78); RDW 12.6 % (11.8-14.1); RDW-SD 42.9 fL; WBC 8.87 10^3/uL (4.4-10.8)
[2024-06-20] MEDS: Normal Saline - Diluent 50 ML VIAL IJ (17:14)
[2024-06-20] MEDS: Omnipaque 350 MG/ML 100 ML BTL 70 ML IJ (17:15)
[2024-06-20 17:21] LABS: Prothrombin Time 10.1 sec (9.1-11.1)
[2024-06-20 17:29] LABS: ALT 41 U/L (16-63); AST 20 U/L (15-37); Albumin 3.7 g/dL (3.4-5.0); Alkaline Phosphatase 94 U/L (46-116); Anion Gap 8.9 mmol/L (3-11); BUN 23 mg/dL (7-18); Bilirubin, Total 0.36 mg/dL (0.2-1.0); CO2 26.1 mmol/L (21.0-32.0); CREATININE 0.9 mg/dL (0.70-1.30); Calcium 8.9 mg/dL (8.5-10.1); Chloride 105 mmol/L (98-107); Estimated GFR 98.38 (mL/min/1.73m2); Glucose 118 mg/dL (74-106); Magnesium 1.9 mg/dL (1.8-2.4); Potassium 3.9 mmol/L (3.5-5.1); Sodium 140 mmol/L (136-145); Total Protein 7.1 g/dL (6.4-8.2); Troponin I 12 ng/L (<or=76)
[2024-06-20 18:40] LABS: Troponin I 13 ng/L (<or=76)
--- NOTE | 2024-06-20 19:25 | W.PM.HP.N ---
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 -also associated with left hand weakness/lack of coordination as well as what sounds like foot drop -vitals, labs, exam, imaging all WNL in ED -discussed with [facility] Tele-neuro, appreciate recs (see Tele-Neuro consult notes for further details): -tele overnight with zio patch at [place] -TTE -EEG if able to obtain on Friday -would normally change antiplaetlet, but would warrant discussion with 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 transplanted heart: [place] heart Qualified Code(s): I25.10 - Atherosclerotic heart disease of [place] coronary artery without angina pectoris (4) Familial hyperlipidemia: Assessment and plan: -as noted above (5) Depression: Assessment and plan: -continue home sertraline Qualifiers: Depression Type: reactive depression Qualified Code(s): F32.9 - Major depressive disorder, single episode, unspecified History of Present Illness History of Present Illness Chief Complaint: left hand numbness Narrative: 58-year-old gentleman with a past medical history of right-sided CVA with left-sided deficits that have since resolved and is on lifelong aspirin and Aggrenox, coronary artery disease disease status post four-vessel bypass presents to the emergency department after experiencing left hand weakness. Patient originally came in for complaints of left hand weakness while he was shopping, but do not divulge any additional information. However, upon further questioning the patient also stated that he may have had some hand weakness and that he was having difficulty retrieving his wallet from his pocket, and that he also noticed that his left foot was dragging on the floor. However, he denied any headache, lightheadedness, dizziness, chest pain, shortness of breath. In the emergency department the patient's symptoms have resolved prior to arrival. He was noted as having normal physical exam, normal vital signs, labs and imaging. However, given patient's significant history and the constellation of his symptoms case was discussed with on-call teleneurology at [facility]. They recommended admitting the patient overnight on telemetry, obtaining an EEG on 06/21/2024 if able, repeating echocardiogram, and ultimately discharging the patient with a Zio patch. 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 At which time emergency room physician paged hospitalist for admission for patient with suspected TIA. 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 Sessile colonic polyp (Acute) Family history of colorectal cancer (Chronic) F Tubular adenoma (Acute ~08/2020) 09/13/20 [facility]ag[facility]ill[facility]fragments of TA in ascending and transverse colon-Dr Gates History of alcohol abuse (Acute) Trigger finger, right middle finger (Acute) Paresthesias in right hand (Acute) Folate deficiency (Acute ~10/2022) Right carpal tunnel syndrome (Acute) Trigger thumb, right thumb (Acute) Medical History (Updated 06/20/24 @ 19:26 by Jefry Draper MD) CVA (cerebral vascular accident) Familial hyperlipidemia Essential (primary) hypertension Depression PTSD; sees counselor in [place] [facility] S[facility] CAD (coronary artery disease) (09/27/16) [facility] Cardiology Jose Alejandro-neglect of left side Diverticulosis PTSD (post-traumatic stress disorder) [employer] [facility] 01/2019 Adenomatous polyp of ascending colon (12/16/16) sessile serrated 11/05/23 fragments of tubular adenoma ascending and transverse colon History of alcohol abuse (09/27/16) [place] (myocardial infarction) (07/24/07) Age 41 Surgical History (Updated 11/21/23 @ 10:11 by Cassandra Mathews RN, RN) H/O four vessel coronary artery bypass graft (03/13/21) [facility] 03/16/21 Colonoscopy - IV Sedation (11/05/23) [facility] 11/05/23 with fragments of tubular adenoma from traverse and ascending colon Cardiac Catheterization and Placement of Coronary Artery Stents (07/24/07) x2 placed 2006 Last seen in cardiology 03/2020 Family History (Updated 05/21/23 @ 18:22 by Tammy Chery NP) Mother Essential hypertension CAD (coronary artery disease) Myocardial infarction x2 Stroke Father , Colon CA at age 62. Diabetes Type II CAD (coronary artery disease) Neoplasm Colon Sister Stroke Sister MS (multiple sclerosis) Sister Essential hypertension Hyperlipidemia TIA (transient ischemic attack) Social History Smoking/Tobacco Use Status: Current every day Tobacco Type: smokeless tobacco Quit status: has quit before Smoking risk assessment performed?: Yes Alcohol Intake: current Alcohol Intake frequency: 3 or more drinks per day Alcohol type: beer Drug use: Never Substance use type: does not use Adopted: No Caregiver/Support person: No Foster care: No Household members: none Housing: apartment Number of Children: 3 number of grandchildren: 3 Communication Needs: None Education Level: high school Do you need help understanding health information?: Never current occupation: [employer] Pets and animals: No Sexually active: Yes Do you think of yourself as: straight/heterosexual Current gender identity: male What is your relationship status?: How often do you talk on the phone with friends or family?: three or more times per week How often do you get together with friends or relatives?: twice per week Do you belong to any clubs or organized social groups?: yes Panel score (0-1 are the most socially isolated patients): 2 What type of physical activity do you participate in: walking Duration: 30-45 minutes/day Frequency: daily Sayra/Sikh: Orthodox Special sayra needs: No Seatbelt use: always Helmet use: Yes Helmet use: never Drive intox or ride w/intox emergency medical technician/driver: No Working smoke detector in home: Yes Fire extinguisher in home: Yes Carbon monox detector in home: Yes Do you feel safe at home: Yes Do you feel safe in your relationship?: Yes Meds Allergies and Home Medications Allergies Allergy/AdvReac Type Severity Reaction Status Date / Time clopidogrel bisulfate (From Allergy Intermediate Hives Verified 06/20/24 16:53 Plavix) Home Medications ?Medication ?Instructions ?Recorded ?Confirmed ?Type acetaminophen 500 mg tablet 500 mg PO Q6H PRN 03/20/21 06/20/24 History aspirin 81 mg tablet,delayed 81 mg PO DAILY 03/20/21 06/20/24 History release (Adult Low Dose Aspirin) folic acid 1 mg tablet 2 mg (2 x 1 mg) PO DAILY #180 tabs 11/14/22 06/20/24 Rx sertraline 50 mg tablet See Rx Instructions .Route 05/12/23 06/20/24 Rx .COMPLEX #90 tabs aspirin 25 mg-dipyridamole 200 mg 1 cap PO BID #180 caps 05/21/23 06/20/24 Rx capsule,ext.release 12 hr multiphase atorvastatin 80 mg tablet 80 mg PO QHS #90 tabs 05/21/23 06/20/24 Rx ezetimibe 10 mg tablet (Zetia) 10 mg PO DAILY #90 tabs 05/21/23 06/20/24 Rx metoprolol succinate 25 mg 25 mg PO .bedtime #90 tabs 05/21/23 06/20/24 Rx tablet,extended release 24 hr Exam Narrative Exam Narrative: Well-appearing gentleman laying in bed, fatigued, no acute distress, ANO x 4, heart regular rhythm, lungs clear to auscultation bilaterally, abdomen soft, nontender, nondistended, normal sensation and strength in bilateral upper and lower extremities Results Labs 06/21/24 06:02 06/20/24 17:03 Labs: Laboratory Results - last 24 hr 11/24/24 11/24/24 17:03 18:04 WBC 8.87 RBC 4.71 Hgb 14.5 Hct 43.4 MCV 92 MCH 30.8 MCHC 33.4 RDW 12.6 Plt Count 280 MPV 10.0 Immature Gran % 0.2 Neutrophils % 60.4 Lymphocytes % 28.6 Monocytes % 6.9 Eosinophils % 3.6 Basophils % 0.3 Nucleated RBC % 0.0 Absolute Neutrophils 5.35 Absolute Lymphocytes 2.54 Absolute Monocytes 0.61 Absolute Eosinophils 0.32 Absolute Basophils 0.03 PT 10.1 INR 1.0 Sodium 140 Potassium 3.9 Chloride 105 Carbon Dioxide 26.1 Anion Gap 8.9 BUN 23 H Creatinine 0.9 Est GFR (CKD-EPI 2020) 98.38 Glucose 118 H Calcium 8.9 Magnesium 1.9 Total Bilirubin 0.36 AST 20 ALT 41 Alkaline Phosphatase 94 Troponin I 12 13 Total Protein 7.1 Albumin 3.7 Last Vital Signs Temp 97.3 F L 06/20/24 17:42 Pulse 69 06/20/24 18:59 Resp 16 06/20/24 18:59 BP 150/101 H 06/20/24 18:59 Pulse Ox 94 06/20/24 18:59 Time Spent Time spent with Patient: >75 minutes Time was spent: preparing to see the patient(eg.review tests), obtaining and/or reviewing separately otained hiistory, ordering medications,tests, procedures, referring, communicating with other health home health caregiver, indepentently interpreting results, counseling the patient and care coordination
--- NOTE | 2024-06-20 20:47 | W.PC.ACHO ---
Registration Status: Primary Language: Preferred Language: ED Information & Data Chief Complaint CVA/TIA 06/20/24 16:54 Chief Complaint CVA/TIA 06/20/24 16:49 Triage Note Patient was getting 06/20/24 16:49 groceries when he kept dropping his paper in his let hand. Patient also noticed he was dragging his left foot also complaining of a headache. Now able to use left hand with a slight headache Medical / Surgical History (Last Updated 06/20/24 @ 16:53 by Jefry Draper MD) CVA (cerebral vascular accident) Familial hyperlipidemia Essential (primary) hypertension Depression CAD (coronary artery disease) (09/27/16) Jose Alejandro-neglect of left side Diverticulosis PTSD (post-traumatic stress disorder) Adenomatous polyp of ascending colon (12/16/16) History of alcohol abuse (09/27/16) [place] (myocardial infarction) (07/24/07) (Last Updated 11/21/23 @ 10:11 by Cassandra Mathews RN, RN) H/O four vessel coronary artery bypass graft (03/13/21) Colonoscopy - IV Sedation (11/05/23) Cardiac Catheterization and Placement of Coronary Artery Stents (07/24/07) Most Recent Vital Signs Temperature 36.3 C L 06/20/24 17:42 Temperature Source Oral 06/20/24 17:42 Pulse 81 06/20/24 20:31 Pulse 69 06/20/24 20:40 Respiratory Rate 23 06/20/24 20:40 Respiratory Effort Normal 06/20/24 16:59 Respiratory Depth Normal 06/20/24 16:59 Blood Pressure 136/96 H 06/20/24 20:31 Blood Pressure Mean 108 06/20/24 20:31 Blood Pressure Position Sitting 06/20/24 16:49 Pulse Oximetry 95 06/20/24 20:40 Oxygen Delivery Method Room Air 06/20/24 16:49 Oxygen Flow Rate 0 06/20/24 16:49 Allergies clopidogrel bisulfate (From Plavix) Allergy (Intermediate, Verified 06/20/24 16:53) Hives Precautions Isolation Standard precaution 06/20/24 16:54 Active Medications Generic Name Dose Route Start Last Admin Trade Name Freq PRN Reason Stop Dose Admin Iohexol 70 ml 06/20/24 17:15 06/20/24 17:15 Omnipaque 350 Mg/Ml 100 Ml Btl IJ 07/20/24 23:59 100 ml DIRECTED SWAPNIL Administration Sodium Chloride 50 ml 06/20/24 17:15 06/20/24 17:14 Normal Saline - Diluent 50 Ml Vial IJ 50 ml .FOR DI USE SWAPNIL Administration IV IV Catheter Type [Right Peripheral IV Antecubital] IV Catheter Gauge [Right 18 Antecubital] Diagnostics 06/20/24 06/20/24 Range/Units 18:04 17:03 WBC 8.87 (4.4-10.8) 10^3/uL RBC 4.71 (4.36-5.78) 10^6/uL Hgb 14.5 (13.5-17.5) g/dL Hct 43.4 (40.0-50.0) % MCV 92 (80-95) fL MCH 30.8 (27.0-33.0) pg MCHC 33.4 (32.0-36.0) % RDW 12.6 (11.8-14.1) % Plt Count 280 (130-400) 10^3/uL MPV 10.0 (8.0-11.0) fL Immature Gran % 0.2 % Neutrophils % 60.4 % Lymphocytes % 28.6 % Monocytes % 6.9 % Eosinophils % 3.6 % Basophils % 0.3 % Nucleated RBC % 0.0 (0.0-0.3) % Absolute Neutrophils 5.35 (1.2-6.7) 10^3/uL Absolute Lymphocytes 2.54 (1.2-3.4) 10^3/uL Absolute Monocytes 0.61 (0.1-0.8) 10^3/uL Absolute Eosinophils 0.32 (0.0-0.7) 10^3/uL Absolute Basophils 0.03 (0.0-0.2) 10^3/uL PT 10.1 (9.1-11.1) sec INR 1.0 (0.9-1.1) Sodium 140 (136-145) mmol/L Potassium 3.9 (3.5-5.1) mmol/L Chloride 105 (98-107) mmol/L Carbon Dioxide 26.1 (21.0-32.0) mmol/L Anion Gap 8.9 (3-11) mmol/L BUN 23 H (7-18) mg/dL Creatinine 0.9 (0.70-1.30) mg/dL Est GFR (CKD-EPI 2020) 98.38 (mL/min/1.73m2) Glucose 118 H (74-106) mg/dL Calcium 8.9 (8.5-10.1) mg/dL Magnesium 1.9 (1.8-2.4) mg/dL Total Bilirubin 0.36 (0.2-1.0) mg/dL AST 20 (15-37) U/L ALT 41 (16-63) U/L Alkaline Phosphatase 94 (46-116) U/L Troponin I 13 12 (<or=76) ng/L Total Protein 7.1 (6.4-8.2) g/dL Albumin 3.7 (3.4-5.0) g/dL [id number] Documentation Fingerstick Glucose Start: 06/20/24 17:02 Freq: .Stat Status: Active Protocol: Activity Type Activity Date Activity User E-sign Co-sign Detail Recorded Client Recorded Date Recorded By Document 06/20/24 17:11 BKG DAEMON(3) [id number] 06/20/24 17:13 BKG DAEMON(4) Intake and Output - 24 Hour Total 06/20/24 16:47 thru 06/20/24 16:49 Weight 96.162 kg Falls Risk Assessment History of Falls No History 06/20/24 16:59 Contributing Factors No Factors 06/20/24 16:59 Ambulatory Aids Independent 06/20/24 16:59 Tubes/Lines W/no contributing factors 06/20/24 16:59 Gait Evaluation No gait disturbance 06/20/24 16:59 Cognition No cognitive impairment 06/20/24 16:59 Fall Total Score 10 06/20/24 16:59 Level of Risk Standard/Low Risk 06/20/24 16:59 Problems (Last Updated 06/20/24 @ 16:53 by Jefry Draper MD) TIA (transient ischemic attack) (Acute) Hand paresthesia (Acute) v v v v v v v v v Sending and/or Receiving Nurses: Please use comment section below to note any information pertinent to the patient hand-off not included above. Information / Comments: Symptoms @ 4pm at grocery store, dropping things from left hand and dragging left foot. Head CT- showed old CVA, TIA, Hx of CABG. Allergy to plavix. Already has been on medications since previous stroke and CABG, symptoms completely resolved prior to arrival to ER. Remote hx of ETOH abuse, not currently. # 18 RAC Report received from: Molly Salinas RN at 2039
[2024-06-20] MEDS: Metoprolol CR 25 MG TABCR PO (22:13)
[2024-06-20] MEDS: Atorvastatin 40 MG TAB 80 MG PO (22:13)
--- NOTE | 2024-06-21 | DI.MRI_ITS ---
Exam(s) MR BRAIN WO EXAM: MR BRAIN WO CLINICAL HISTORY: TIA, h/o CVA TECHNIQUE: Multiplanar multisequence MRI of the brain was performed. COMPARISON: MR MR BRAIN WO from 03/26/2022 MR MR ANGIO NECK WO from 03/26/2022 FINDINGS: CEREBRAL PARENCHYMA: There is no evidence of acute intracranial hemorrhage, mass effect, or shift of midline structures. There are no extra-axial fluid collections. There is no significant focal signal abnormality in the cerebellar hemispheres nor within the zaria, m idbrain, and thalami. There is signal abnormality in the right frontal parietal lobe territory of the right middle cerebral artery which is site of prior infarct which was acute in February 2022. There is presently some ex va cuo dilatation of the atrium of the right lateral ventricle at this level. There is presently no dino dence of restricted diffusion to suggest acute infarct. SWI: There is some evidence of prior microhemorrhage in the territory of the infarct right middle cer ebral artery territory. PITUITARY GLAND: No mass nor parasellar abnormality. No obvious abnormality in the cavernous sinuses. FLOW VOIDS: The expected flow void are noted. No evidence of obvious aneurysm nor obvious vascular ma lformation. No obvious asymmetry in the appearance of the middle cerebral arteries. PARANASAL SINUSES: Some focal mucosal thickening is noted in the floor of the left maxillary sinus. ORBITS: No obvious findings. IMPRESSION: Evidence of prior infarct in territory right middle cerebral artery which was acute in February 2022. There is some remnant signal abnormality in this territory as well as some ex vacuo dilatation of the ipsilateral right lateral ventricle. There is, however, no evidence restricted diffusion to suggest acute infarct at this time. No evidence of acute hemorrhage but SWI imaging reveals some susceptibility artifact along the sulci of this area of prior infarct. DATA REPOSITORY:
[2024-06-21 03:28] VITALS: BP 113/76; PULSE 66; RESP 16; TEMP 37.2; O2SAT 93
[2024-06-21 06:29] LABS: HCT 43.2 % (40.0-50.0); HGB 14.4 g/dL (13.5-17.5); MCH 30.6 pg (27.0-33.0); MCHC 33.3 % (32.0-36.0); MCV 92 fL (80-95); MPV 10.3 fL (8.0-11.0); Platelet Count 275 10^3/uL (130-400); RBC 4.71 10^6/uL (4.36-5.78); RDW 12.6 % (11.8-14.1); RDW-SD 42.3 fL; WBC 8.52 10^3/uL (4.4-10.8)
[2024-06-21 06:42] LABS: Anion Gap 8.9 mmol/L (3-11); BUN 18 mg/dL (7-18); CO2 26.1 mmol/L (21.0-32.0); CREATININE 0.8 mg/dL (0.70-1.30); Calcium 8.9 mg/dL (8.5-10.1); Chloride 103 mmol/L (98-107); Estimated GFR 101.95 (mL/min/1.73m2); Glucose 121 mg/dL (74-106); Potassium 4.1 mmol/L (3.5-5.1); Sodium 138 mmol/L (136-145)
--- NOTE | 2024-06-21 07:00 | DI.US_ITS ---
APPROVED REPORT EXAM: Comprehensive 2D, Doppler, and color-flow Echocardiogram Patient Location: In-Patient Room/Bed: [facility] Concrete Paver: Gala Montenegro RDCS (AE) Indications: TIA Echo Enhancing Agent Indication: Rule out Shunt Agent(s) / Amount(s) Used: Agitated Saline 30.0 cc Comments: Contrast study was performed with 3 IV injections of 10ccs of agitated normal saline, at [facility], with cough and post valsalva maneuver. Negative contrast study for shunt flow. Other Information Study Quality: Adequate. Technically limited study due to body habitus. Conclusion Normal left ventricular wall thickness and chamber size. Ejection fraction is 55 to 60%. There is a n apical wall motion abnormality Normal right ventricular size and function Both atria are normal in size There is no intracardiac shunting identified with injection of agitated saline Aortic valve is mildly sclerotic and trileaflet with mild regurgitation Estimated right ventricular systolic pressure is 28 mmHg Wall motion Left Ventricle The left ventricle is normal size. The overall left ventricular systolic function appears normal. T here is normal left ventricular wall thickness. Regional wall motion abnormalities are noted. There i s no ventricular septal defect visualized. LVEF is 57%. Right Ventricle The right ventricle is normal size. The right ventricular systolic function is normal. Atria The left atrium size is normal. The right atrium size is normal. The interatrial septum is intact wit h no evidence for an atrial septal defect. Aortic Valve The Aortic valve is mildly sclerotic. Aortic valve is trileaflet. There is no aortic valvular stenosi s. Mild aortic regurgitation. Mitral Valve The mitral valve is normal in structure. No evidence of mitral valve stenosis. Trace mitral regurgita tion. Tricuspid Valve The tricuspid valve is normal in structure. There is no tricuspid valve stenosis. Trace tricuspid reg urgitation. The RVSP is 27.7_ mmHg. Pulmonic Valve The pulmonary valve is normal in structure. There is no pulmonic valvular stenosis. Trace pulmonic re gurgitation. Great Vessels The aortic root is normal in size. Ascending aorta is not well visualized. Aortic arch is normal in c aliber. IVC is normal in size and collapses >50% with inspiration. Pericardium There is no pericardial effusion. 2D Dimensions IVSD d PLAX 1.10 cm M: 0.6-1.2 Ao Root d 2.84 cm M: 3.1 - 3.7 LVPW d PLAX 1.14 cm M: 0.6 - 1.2 LVID d PLAX 4.50 cm M: 4.2 - 5.8 LVDs 3.11 cm M: 2.5 - 4.0 LV EF Teichholz 58.4 % FS 30.72 % LV EDV (Teich) 92.2 mL LV ESV (Teich) 38.3 mL Auto EF LV EDV A4C 94.6 mL LV EDV A2C 110.0 mL LV EDV BP 105.1 mL LV ESV A4C 40.5 mL LV ESV A2C 45.7 mL LV ESV BP 42.7 mL LVEF(%) A4C 57.2 % LVEF(%) A2C 58.5 % LVEF(%) BP 59.3 % LV SV A4C 54.1 ml LV SV A2C 64.3 ml LV SV BP 62.3 ml LV CO A4C 2.7 L/min LV CO A2C 2.8 L/min LV CO BP 2.8 L/min HR A4C 50.21 BPM HR A2C 43.69 BPM LV EDV Index (BP) LA Volume LA Length A4C 6.0 cm LA Length A2C 4.5 cm LA Area A4C s 20.27 cm2 LA Area A2C s 13.90 cm2 LA Vol A4C A-L 58.23 mL LA Vol A2C A-L 36.21 mL LA Vol Biplane A-L 52.8 mL LA Vol/BSA A4C A-L LA Vol/BSA A2C A-L LA Vol/BSA BP A-L 25.6 mL/m2 LA Vol A4C MOD 53.1 mL LA Vol A2C MOD 34.0 mL LA Vol BP MOD 48.6 mL LV Diastology MV E' medial 0.082 (>0.07 m/s) MV E Vmax 0.89 (0.4-1.3 m/s) MV E/E' MED 10.79 (<14) MV A Vmax 0.55 (0.4-1.3 m/s) MV E' lateral 0.118 (>0.1 m/s) E/A Ratio 1.6 MV E/E' LAT 7.52 (<14) MV E' Average 0.100 m/s MV E/E'(average) 8.86 Aortic Valve AoV Vmax 1.64 m/s LVOT Vmax 1.03 m/s AoV Peak Grad 51.7 mmHg LVOT Peak Grad 4.2 mmHg AoV Area (Vmax) 1.94 cm2 LVOT VTI 0.228 m AoV VTI 0.368 m LVOT Mean Grad 2.4 mmHg AoV Mean Krunal. 1.09 m/s LVOT SV 70.35 mL AoV Mean Grad 5.5 mmHg LVOT Diam s 1.95 cm AoV Area (VTI) 1.91 cm2 AV Regurg Peak Gr. 10.76 mmHg Velocity Ratio 0.63 AR Decel [place] 1.8m/sec2 AR DT 2702 msec AR PHT 784 msec AR Vmax 4.81 m/s Mitral Valve MV DT 152 (160-240 msec) MV Vmax TIPS 0.78 m/s MV Mean Grad 0.8 (<2mmHg) MV VTI 0.344 m Pulmonary Valve PV Vmax 1.09 (0.5-1.5 m/s) RVOT Vmax 0.59 m/s PV Peak Grad 4.8 mmHg RVOT Peak Gr. 1.4 mmHg PV Mean Krunal 0.71 m/s RVOT VTI 0.142 m PV Mean Grad 2.4 mmHg RVOT Mean Gr. 0.9 mmHg Tricuspid Valve RA Pressure 3.00 mmHg TR Vmax 2.49 m/s TV S' 0.09 m/s TR Peak Grad 24.7 mmHg RVSP (TR) 27.7 mmHg
[2024-06-21 07:35] VITALS: BP 109/74; PULSE 59; RESP 16; TEMP 37.1; O2SAT 96
[2024-06-21] MEDS: Normal Saline Flush 10 ML SYR IVP ×2 (08:38→22:00)
[2024-06-21] MEDS: Aspirin E.C. 81 MG TABEC PO (08:38)
[2024-06-21] MEDS: Ezetimibe 10 MG TAB PO (08:38)
[2024-06-21] MEDS: Folic Acid 1 MG TAB 2 MG PO (08:38)
--- NOTE | 2024-06-21 09:27 | PDOC.CMIN ---
Care Management Initial Assmt Initial Assessment Reason for Hospitalization: TIA Functional Status/Living Situation Patient Presentation: Roger was sitting up in bed entertaining a visitor when CM met with him. He was admitted with a TIA that manifested as left hand numbness and left hand and foot weakness, however symptoms had resolved by the time he reached the ED. He was admitted to undergo further testing not available on the weekend ( ECHO and MRI). Roger lives alone in an apartment in [place]. He has 3 children who live in [place] or [place]. He works at [employer] and is independent at baseline. Roger did express frustration when meeting with CM. It was late in the day and his MRI had not been ordered yet. Roger indicated that he had hoped to be discharged home today. He will have the procedure later today and will possibly be discharged later tonight or tomorrow morning. Town of Residence: [place] Resides with: Alone Significant Other/Family: Local Natural Supports: family Employment Status: Employed ([employer]) Instrumental Activities of Daily Living (ADLs): Independent Medications Medication Management: No Issues/Barriers identified Physical Functioning/Mobility Assistive Device: none Advance Directives Advance Directives: Do you have an Advance Directive: N 12/07/14 13:13 AD On File at [facility]: N 12/07/14 13:13 Date Asked 06/20/24 06/20/24 19:37 AD Date Reviewed COLST On File at [facility] COLST Date Scanned Code Status Resuscitation Status Full Code Insurance Coverage/Financial Issues Insurance: [employer] Care Team Visit Care Team Role Provider Type Tammy Chery NP Primary Care Provider NURSE PRACTITIONER Jefry Draper MD Emergency Provider [facility] STAFF PHYSICIAN Abraham Ramirez MD Admit Provider [facility] STAFF PHYSICIAN Attending Provider Discharge Potential Discharge Needs: PCP F/U Appt Anticipated Barriers to Discharge: None Identified Patient/Family Education Needs: Review discharge instructions, discuss Ask Me Three Transportation: Private vehicle Plan: Anticipate Олег will be discharged home with no new services. He will follow up with his PCP and plan of care and transport with family, CM will follow and continue to assess for discharge needs. PFSH All Active Problems (Updated 06/20/24 @ 19:26 by Jefry Draper MD) TIA (transient ischemic attack) (Acute) Hand paresthesia (Acute) FH: CABG (coronary artery bypass surgery) (Acute) Patellar maltracking (Acute) Lumbar spine pain (Acute) History of tobacco abuse (Chronic 10/02/16) Periodontal disease (Acute) Needs teeth extractions; underinsured; referred to [facility] 03/08/2020 Impaired fasting glucose (Acute) 5.7% 03/10/2020 Obstructive sleep apnea (adult) (pediatric) (Chronic) 03/30/2020 Anuja Vicente NP CPAP Sessile colonic polyp (Acute) Family history of colorectal cancer (Chronic) F Tubular adenoma (Acute ~08/2020) 09/13/20 Fragments of [facility]ill[facility] [place] [facility]fragments of TA in ascending and transverse colon-Dr Gates History of alcohol abuse (Acute) Trigger finger, right middle finger (Acute) Paresthesias in right hand (Acute) Folate deficiency (Acute ~10/2022) Right carpal tunnel syndrome (Acute) Trigger thumb, right thumb (Acute) Medical History (Updated 06/20/24 @ 19:26 by Jefry Draper MD) CVA (cerebral vascular accident) Familial hyperlipidemia Essential (primary) hypertension Depression PTSD; sees counselor in [facility] [employer] [facility] CAD (coronary artery disease) (09/27/16) [facility] Cardiology Jose Alejandro-neglect of left side Diverticulosis PTSD (post-traumatic stress disorder) [facility] [employer] [facility] 01/2019 Adenomatous polyp of ascending colon (12/16/16) sessile serrated 11/05/23 fragments of tubular adenoma ascending and transverse colon History of alcohol abuse (09/27/16) [place] (myocardial infarction) (07/24/07) Age 41 Surgical History (Updated 11/21/23 @ 10:11 by Cassandra Mathews RN, RN) H/O four vessel coronary artery bypass graft (03/13/21) [facility] 03/16/21 Colonoscopy - IV Sedation (11/05/23) [facility] 11/05/23 with fragments of tubular adenoma from traverse and ascending colon Cardiac Catheterization and Placement of Coronary Artery Stents (07/24/07) x2 placed 2006 Last seen in cardiology 03/2020 Family History (Updated 05/21/23 @ 18:22 by Tammy Chery NP) Mother Essential hypertension CAD (coronary artery disease) Myocardial infarction x2 Stroke Father , Colon CA at age 62. Diabetes Type II CAD (coronary artery disease) Neoplasm Colon Sister Stroke Sister MS (multiple sclerosis) Sister Essential hypertension Hyperlipidemia TIA (transient ischemic attack) Social History Smoking/Tobacco Use Status: Current every day Tobacco Type: smokeless tobacco Quit status: has quit before Smoking risk assessment performed?: Yes Alcohol Intake: current Alcohol Intake frequency: 3 or more drinks per day Alcohol type: beer Drug use: Never Substance use type: does not use Adopted: No Caregiver/Support person: No Foster care: No Household members: none Housing: apartment Number of Children: 3 number of grandchildren: 3 Communication Needs: None Education Level: high school Do you need help understanding health information?: Never current occupation: [employer] Pets and animals: No Sexually active: Yes Do you think of yourself as: straight/heterosexual Current gender identity: male What is your relationship status?: How often do you talk on the phone with friends or family?: three or more times per week How often do you get together with friends or relatives?: twice per week Do you belong to any clubs or organized social groups?: yes Panel score (0-1 are the most socially isolated patients): 2 What type of physical activity do you participate in: walking Duration: 30-45 minutes/day Frequency: daily Sayra/Alevism: [place] Special sayra needs: No Seatbelt use: always Helmet use: Yes Helmet use: never Drive intox or ride w/intox bull driver: No Working smoke detector in home: Yes Fire extinguisher in home: Yes Carbon monox detector in home: Yes Do you feel safe at home: Yes Do you feel safe in your relationship?: Yes SDOH(Care Management) Screening Will the Patient Participate in the Screening?: Yes Do you worry about having a steady place to live?: no Problems where you live: no known problems In the past 12 months, have you had to go without electric, gas, oil or water in your home?: no Have you or anyone in your house had to go without enough food to eat?: no Has lack of transportation kept you from medical appointments or from doing things needed for daily living?: no Has anyone in your support network made you feel unsafe for any reason?: no
[2024-06-21 11:39] VITALS: BP 105/58; PULSE 43; RESP 16; TEMP 36.3; O2SAT 96
[2024-06-21 15:17] VITALS: BP 120/81; PULSE 67; RESP 16; TEMP 36.9; O2SAT 95
--- NOTE | 2024-06-21 19:28 | W.PM.PROGNOT ---
Date of Service Date of service: 06/21/24 Time of Service: 19:28 Assessment and Plan Assessment and plan (1) Hand paresthesia: Status: Acute Assessment and plan: -occured1 hour RN HYPERBARIC, resolved upon arrival to ED, c/w TIA -also associated with left hand weakness/lack of coordination as well as what sounds like foot drop -vitals, labs, exam, imaging -[facility] [facility] [place], appreciate recs (see Tele-Neuro consult notes for further details): -tele as inpatient with zio patch at DC -TTE done, reassuring -EEG not able to get done today, plan in AM 06/22 -MRI showed now new infarct, but some susceptibility artifact along the sulci of this area of prior infarct. Teleneuro suggested trying ticagrelor/ASA as he does not tolerate clopidogrel. I called [facility] cardiology, they have no problem with this, defer to neurology. Will stop aggrenox and start this, monitor to make sure no cross reactivity with clopidogrel. recheck lipids/A1c to assess vascular risk factors. EEG in AM, reconsult teleneuro before discharge (2) CVA (cerebral vascular accident): Assessment and plan: -history of, 2021, right MCA with left sided symptoms that have since resolved -see above (3) CAD (coronary artery disease): Assessment and plan: -s/p 4-vessel CABG in 2021 -continue statin, asa, metoprolol Qualifiers: Associated angina: unspecified whether angina present Coronary Disease-Associated Artery/Lesion type: unspecified vessel or lesion type [place] vs. transplanted heart: [place] heart Qualified Code(s): I25.10 - Atherosclerotic heart disease of [place] coronary artery without angina pectoris Subjective Subjective Patient reports: no new complaints and voiding w/o difficulty; denies nausea or fever Interval history since last seen: He has had not recurrence of his left sided numbness or weakness. No chest pain, LYNN, dizziness, bleeding, or other new symptoms. He wanted to go home today, but MRI not done until later in the day. Exam Narrative Exam Narrative: Well-appearing gentleman sitting up, going from bed to chair, no acute distress, ANO x 4. heart regular rhythm, lungs clear to auscultation bilaterally, abdomen soft, nontender, nondistended, normal sensation and strength in bilateral upper and lower extremities. DTRs symmetric, not hyperreflexic, Nl FNF bilaterally, normal speech, no pronator drift. Objective Last Vital Signs Temp 36.9 C 06/21/24 15:17 Pulse 67 06/21/24 15:17 Resp 16 06/21/24 15:17 BP 120/81 06/21/24 15:17 Pulse Ox 95 06/21/24 15:17 Laboratory Results - last 24 hr 06/21/24 06:02 WBC 8.52 RBC 4.71 Hgb 14.4 Hct 43.2 MCV 92 MCH 30.6 MCHC 33.3 RDW 12.6 Plt Count 275 MPV 10.3 Sodium 138 Potassium 4.1 Chloride 103 Carbon Dioxide 26.1 Anion Gap 8.9 BUN 18 Creatinine 0.8 Est GFR (CKD-EPI 2020) 101.95 Glucose 121 H Calcium 8.9 Magnesium 2.0 Time Spent with Patient Time Spent with Patient: 35-49 minutes Time was spent: preparing to see the patient(eg.review tests), obtaining and/or reviewing separately otained hiistory, ordering medications,tests, procedures, referring, communicating with other health health care / medical job titles, indepentently interpreting results, counseling the patient and care coordination
[2024-06-21 19:39] VITALS: BP 129/88; PULSE 67; RESP 19; TEMP 36.3; O2SAT 96
[2024-06-21] MEDS: Metoprolol CR 25 MG TABCR PO (20:01)
[2024-06-21] MEDS: Ticagrelor 90 MG TAB 180 MG PO (20:01)
[2024-06-21 23:39] VITALS: BP 125/70; PULSE 61; RESP 16; TEMP 36.1; O2SAT 94
[2024-06-22 03:17] VITALS: BP 117/76; PULSE 66; RESP 18; TEMP 36.1; O2SAT 95
[2024-06-22 06:20] LABS: Calculated LDL 230 mg/dL (<100); Cholesterol 315 mg/dL (<200); HDL Cholesterol 43 mg/dL (40-60); Triglyceride 211 mg/dL (<150)
[2024-06-22 07:48] VITALS: BP 130/72; PULSE 71; RESP 18; TEMP 36.3; O2SAT 98
[2024-06-22] MEDS: Folic Acid 1 MG TAB 2 MG PO (08:14)
[2024-06-22] MEDS: Aspirin E.C. 81 MG TABEC PO (08:14)
[2024-06-22] MEDS: Normal Saline Flush 10 ML SYR IVP (08:14)
[2024-06-22] MEDS: Ticagrelor 90 MG TAB PO (08:14)
[2024-06-22] MEDS: Ezetimibe 10 MG TAB PO (08:14)
--- NOTE | 2024-06-22 09:59 | PDOC.CMDIS ---
Date of service: 06/22/24 Time of Service: 09:59 LACE Index Scoring Tool Questions: Length of Stay (in days): 2 Was the patient admitted via the E.D.?: Yes Comorbidities: Previous M.I. and Cerebrovascular Disease E.D. Visits: 1 Answers: Total Score: 8 Risk of Readmission: Low Risk Care Management Discharge Plan Reason for Hospitalization: TIA Discharge Plan: Олег will be discharged home with no new services. He will follow up with his community providers and plan of care and transport with family. Patient/Family Education Needs: Review discharge instructions, limitations, follow up plan and discuss Ask Me Three [facility] Health Related Social Needs: No Data to Display
--- NOTE | 2024-06-22 10:16 | DSE_ITS ---
Date of service: 06/22/24 Time of Service: 10:19 DS: Diagnosis Discharge Diagnosis (1) CVA (cerebral vascular accident): (2) CAD (coronary artery disease): (3) Impaired fasting glucose: Status: Acute (4) TIA (transient ischemic attack): Status: Acute (5) Familial hyperlipidemia: Discharge Plan Disposition Patient Disposition: Home Condition: Good Discharge Details Reason For Visit: TIA Admit Date/Time: 06/20/24 19:25 Admit Provider: Abraham Ramirez Attending Provider: Abraham Ramirez Primary Care Provider: Tammy Chery Hospital Course Hospital Course: 58 yo M with history of large right hemispheric stroke due to intracranial artherosclerosis in 2021 with left hemiparesis that resolved, admitted after an episode of acute left sided hand and foot weakness that resolved by the time he was admitted. Admission CTA head/neck showed old infarct in R MCA, mild carotid plaques, but no acute ischemia. Teleneurology was consulted who recommended MRI, echocardiogram, and EEG. He was observed overnight on telemetry with no events. Echocardiogram was reassuring with normal LVEF 55-60% and no signs of clot, no shunting on bubble study. MRI showed the old infarct but no new ischemia or bleeding. Aggrenox was stopped and he was started on ticagrelor, which he tolerated well. Neurology He felt well and preferred to go home in the afternoon of his second day rather than wait for the EEG. EEG and 14 day monitor was ordered as an outpatient to complete the work up recommended by teleneurology, but neurology felt seizure was unlikely and work restrictions were not necessary. Follow up with stroke clinic at was recommended. This should be done within the 21 days to decide on assistant terminal manager antiplatelet therapy plan. Lipids and A1c were repeated to assess vascular risk factors. LDL was 230, suggesting he has not taken his medication regularl as his last LDL was 89 in January. A1c was 6.0, up from previous 5.8%. Home Meds and New Rx's Prescriptions: New Brilinta 90 mg Tablet 90 mg PO BID 21 Days Qty: 42 0RF Continued atorvastatin 80 mg tablet 80 mg PO QHS Qty: 90 3RF Rx Instructions: Cholesterol, LDL goal <70 ezetimibe [Zetia] 10 mg tablet 10 mg PO DAILY Qty: 90 3RF metoprolol succinate 25 mg tablet extended release 24 hr 25 mg PO .bedtime Qty: 90 3RF Rx Instructions: CAD & BP acetaminophen 500 mg tablet 500 mg PO Q6H PRN aspirin [Adult Low Dose Aspirin] 81 mg tablet,delayed release (DR/EC) 81 mg PO DAILY folic acid 1 mg tablet 2 mg PO DAILY Qty: 180 3RF Discontinued aspirin-dipyridamole 25-200 mg capsule, ER multiphase 12 hr 1 cap PO BID Qty: 180 3RF No Action sertraline 50 mg tablet See Rx Instructions .ROUTE .COMPLEX Qty: 90 3RF Dose Instruction: TAKE ONE TABLET BY MOUTH EVERY DAY Rx Instructions: TAKE ONE TABLET BY MOUTH EVERY DAY Discharge Instructions Instructions: Transient ischemic attack Additional Instructions: stop the Aggrenox (aspirin-dipyridamole) and continue the baby aspirin with the new medication, Brillinta (ticagrelor). You should take this combination for 21 days. You should follow up with neurology at [facility] to decide what regimen to take after that point. EEG and heart monitor patch was ordered as an outpatient. These will be done through [facility]. The patch needs insurance approval before it can be placed. Your cholesterol was quite high. This contributes to your risk of stroke. Make sure you are taking the atorvastatin and ezetimibe. You could also consider the newer medications for cholesterol. Your blood sugar level was in the pre-diabetic range, similar to previous testing. You should talk about diabetes prevention with your primary care. Stand Alone Forms: Nursing Discharge Form Referrals: Tammy Chery NP [Primary Care Provider] - 07/07/24 11:00 am José Kinney [ NON-[facility] STAFF PHYSICIAN] - (Stroke clinic. 58 yo M with history of CAD/CABG, CVA, admitted TIA with left hand symptoms, nothing new on MRI. Was on aggrenox and ASA long-term, aggrenox replaced with ticagrelor for 21 days. Zio monitor and EEG pending as outpatient. Needs plan for assistant terminal manager antiplatelet therapy) Activity:: Activity as Tolerated Equipment/Supplies:: No Equipment Needed Diet:: As Tolerated Discharge Orders Discharge Orders: Discharge Order (Routine); Ordered 06/22/24 Ordered By: Jonah Oliveros Other Ambulatory Orders: EEG(Regular) (Routine) Timeframe: 1 Week Location: None Selected Ordered By: Jonah Oliveros 14 Day Hand Stapler (Routine) Timeframe: 1 Day Facility: [facility] - Location: Respiratory Therapy Ordered By: Jonah Oliveros DS: Summary Time Spent with Patient providing and/or coordinating discharge services: Greater than 30 minutes Status at Discharge Functional status at discharge: independent ambulation Overall status at discharge: patient is back to baseline Mental Status: mental status grossly normal Speech and Movement: speech and movement normal Mood: congruent mood Affect: normal affect Quality:SDOH Health Related Social Needs: No Data to Display Exam Narrative Exam Narrative: Well-appearing gentleman standing up, walking, no acute distress, ANO x 4. heart regular rhythm, lungs clear to auscultation bilaterally, abdomen soft, nontender, nondistended, normal sensation and strength in bilateral upper and lower extremities. CN intact. normal speech, no pronator drift. Psych Mental Status: mental status grossly normal Speech and Movement: speech and movement normal Mood: congruent mood Affect: normal affect DS: Data Vitals/I&O Vitals and I&O: Vital Signs Temperature 36.3 C L 06/22/24 07:48 Temperature Source Tympanic 06/22/24 07:48 Pulse 71 06/22/24 07:48 Pulse Rhythm Regular 06/20/24 21:05 Pulse 73 06/20/24 20:46 Respiratory Rate 18 06/22/24 07:48 Respiratory Effort Normal, Non-Labored 06/20/24 21:05 Respiratory Depth Normal 06/20/24 21:05 Respiratory Pattern Normal 06/20/24 21:05 Blood Pressure 130/72 06/22/24 07:48 Blood Pressure Mean 103 06/20/24 20:46 Blood Pressure Position Sitting 06/20/24 16:49 Pulse Oximetry 98 06/22/24 07:48 Oxygen Delivery Method Room Air 06/22/24 07:48 Oxygen Flow Rate 0 06/22/24 07:48 Pain Level 0 06/21/24 11:39 Comment Will inform RN 06/21/24 11:39 Intake & Output 06/21/24 06/21/24 06/22/24 11:59 23:59 11:59 Intake Total 640 / 880 240 / 880 360 / 360 Balance 640 / 880 240 / 880 360 / 360 Intake: Oral 640 / 880 240 / 880 360 / 360 Other: Urine Color Yellow Urine Appearance Clear Urine Odor Normal Comment void x 1 in toilet per patient pt is independently voided x2 Data Completed and Pending Labs on day of discharge: Labs from last 24 hours 06/22/24 05:40 Hemoglobin A1c 6.0 H Triglycerides 211 H Total Cholesterol 315 H LDL Cholesterol, Calc 230 H HDL Cholesterol 43 PFSH All Active Problems TIA (transient ischemic attack) (Acute) Lumbar spine pain (Acute) FH: CABG (coronary artery bypass surgery) (Acute) Trigger thumb, right thumb (Acute) Right carpal tunnel syndrome (Acute) Folate deficiency (Acute ~10/2022) Paresthesias in right hand (Acute) Trigger finger, right middle finger (Acute) History of alcohol abuse (Acute) Tubular adenoma (Acute ~08/2020) 09/13/20 Fragments of tubulovillous adenoma with [facility]err[facility] [place] [facility]fragments of TA in ascending and transverse colon-Dr Gates Family history of colorectal cancer (Chronic) F Sessile colonic polyp (Acute) Obstructive sleep apnea (adult) (pediatric) (Chronic) 03/30/2020 Anuja Vicente [employer] CPAP Impaired fasting glucose (Acute) 5.7% 03/10/2020 Periodontal disease (Acute) Needs teeth extractions; underinsured; referred to [facility] 03/08/2020 Hand paresthesia (Acute) Patellar maltracking (Acute) History of tobacco abuse (Chronic 10/02/16) Medical History (Updated 06/20/24 @ 19:26 by Jefry Draper MD) CVA (cerebral vascular accident) Jose Alejandro-neglect of left side Familial hyperlipidemia Essential (primary) hypertension Diverticulosis Depression PTSD; sees counselor in [employer] PTSD (post-traumatic stress disorder) [employer] 01/2019 Adenomatous polyp of ascending colon (12/16/16) sessile serrated 11/05/23 fragments of tubular adenoma ascending and transverse colon CAD (coronary artery disease) (09/27/16) [facility] Cardiology History of alcohol abuse (09/27/16) [place] (myocardial infarction) (07/24/07) Age 41 Surgical History (Updated 11/21/23 @ 10:11 by Cassandra Mathews RN, RN) H/O four vessel coronary artery bypass graft (03/13/21) [facility] 03/16/21 Colonoscopy - IV Sedation (11/05/23) [facility] 11/05/23 with fragments of tubular adenoma from traverse and ascending colon Cardiac Catheterization and Placement of Coronary Artery Stents (07/24/07) x2 placed 2006 Last seen in cardiology 03/2020 Family History (Updated 05/21/23 @ 18:22 by Tammy Chery NP) Mother Essential hypertension CAD (coronary artery disease) Myocardial infarction x2 Stroke Father , Colon CA at age 62. Diabetes Type II CAD (coronary artery disease) Neoplasm Colon Sister Stroke Sister MS (multiple sclerosis) Sister Essential hypertension Hyperlipidemia TIA (transient ischemic attack) Social History Smoking/Tobacco Use Status: Current every day Tobacco Type: smokeless tobacco Quit status: has quit before Smoking risk assessment performed?: Yes Alcohol Intake: current Alcohol Intake frequency: 3 or more drinks per day Alcohol type: beer Drug use: Never Substance use type: does not use Adopted: No Caregiver/Support person: No Foster care: No Household members: none Housing: apartment Number of Children: 3 number of grandchildren: 3 Communication Needs: None Education Level: high school Do you need help understanding health information?: Never current occupation: [id number] Pets and animals: No Sexually active: Yes Do you think of yourself as: straight/heterosexual Current gender identity: male What is your relationship status?: How often do you talk on the phone with friends or family?: three or more times per week How often do you get together with friends or relatives?: twice per week Do you belong to any clubs or organized social groups?: yes Panel score (0-1 are the most socially isolated patients): 2 What type of physical activity do you participate in: walking Duration: 30-45 minutes/day Frequency: daily Sayra/Hinduism: Mosque Special sayra needs: No Seatbelt use: always Helmet use: Yes Helmet use: never Drive intox or ride w/intox nascar driver: No Working smoke detector in home: Yes Fire extinguisher in home: Yes Carbon monox detector in home: Yes Do you feel safe at home: Yes Do you feel safe in your relationship?: Yes Time Spent with Patient Time Spent with Patient: <45 minutes Time was spent: preparing to see the patient(eg.review tests), obtaining and/or reviewing separately otained hiistory, ordering medications,tests, procedures, referring, communicating with other health disabilities caregiver, indepentently interpreting results, counseling the patient and care coordination
--- NOTE | 2024-06-22 16:24 | CMPROGNOTE_ITS ---
Date of service: 06/22/24 Time of Service: 16:24 Care Management Progress Note Progress Note Text Progress Note Text: The patient does not meet criteria for inpatient status and the patient status is changed from inpatient tp observation. SDOH(Care Management) Screening Will the Patient Participate in the Screening?: Yes Do you worry about having a steady place to live?: no Problems where you live: no known problems In the past 12 months, have you had to go without electric, gas, oil or water in your home?: no Have you or anyone in your house had to go without enough food to eat?: no Has lack of transportation kept you from medical appointments or from doing th ings needed for daily living?: no Has anyone in your support network made you feel unsafe for any reason?: no
== END 2024-06-22 10:36 | disposition home or self-care (01) ==
LOC: ER 19:37 → MS 06-21 10:49
PROVIDERS: Family Medicine; Admitting Provider Family Medicine; Emergency Provider Emergency Medicine; PCP Nurse Practitioner Adult Health; Visit Provider Family Medicine
DX: G45.9 Transient cerebral ischemic attack, unspecified (principal); I25.10 Atherosclerotic heart disease of native coronary artery without angina pectoris; E78.49 Other hyperlipidemia; R73.01 Impaired fasting glucose; Z95.1 Presence of aortocoronary bypass graft; G47.33 Obstructive sleep apnea (adult) (pediatric); E53.8 Deficiency of other specified B group vitamins; Z86.73 Personal history of transient ischemic attack (TIA), and cerebral infarction without residual deficits; R51.9 Headache, unspecified; E66.9 Obesity, unspecified; Z79.899 Other long term (current) drug therapy; R20.2 Paresthesia of skin; M21.372 Foot drop, left foot; M54.50 Low back pain, unspecified; F32.9 Major depressive disorder, single episode, unspecified; Z80.0 Family history of malignant neoplasm of digestive organs; F10.11 Alcohol abuse, in remission; I25.2 Old myocardial infarction; F17.290 Nicotine dependence, other tobacco product, uncomplicated
CPT/HCPCS: 00123; 36415; 36416; 70496; 70498; 80048; 80053; 80061; 82962; 85027; 93005; 99285; 70551; 83036; 83735; 84484; 85025; 85610; 93010; 93306; 99223; 99232; 99239; J3490

== ENCOUNTER 2024-09-28 07:29 | Outpatient (CLI) | payer OTHER, SELFPAY ==
[2024-09-28 08:14] LABS: Hemoglobin A1C 6.1 % (<5.7)
[2024-09-28 08:30] LABS: ALT 45 U/L (16-63); AST 19 U/L (15-37); Albumin 3.7 g/dL (3.4-5.0); Alkaline Phosphatase 102 U/L (46-116); Anion Gap 6.7 mmol/L (3-11); BUN 33 mg/dL (7-18); Bilirubin, Total 0.51 mg/dL (0.2-1.0); CO2 30.3 mmol/L (21.0-32.0); Calcium 9.3 mg/dL (8.5-10.1); Calculated LDL 75 mg/dL (<100); Chloride 108 mmol/L (98-107); Cholesterol 144 mg/dL (<200); Estimated GFR 86.16 (mL/min/1.73m2); Glucose 120 mg/dL (74-106); HDL Cholesterol 50 mg/dL (>or=40); Potassium 4.5 mmol/L (3.5-5.1); Sodium 145 mmol/L (136-145); Total Protein 7.1 g/dL (6.4-8.2); Triglyceride 96 mg/dL (<150)
[2024-09-28 08:31] LABS: Folate > 20.0 ng/mL (8.6-20.0)
== END 2024-09-28 07:30 | disposition home or self-care (01) ==
LOC: LBO 07:29
PROVIDERS: PCP Nurse Practitioner Adult Health; Referring Provider Nurse Practitioner Adult Health; Visit Provider Nurse Practitioner Adult Health
DX: I10 Essential (primary) hypertension (principal); I25.10 Atherosclerotic heart disease of native coronary artery without angina pectoris; R73.01 Impaired fasting glucose; E53.8 Deficiency of other specified B group vitamins; G45.9 Transient cerebral ischemic attack, unspecified; E78.49 Other hyperlipidemia
CPT/HCPCS: 36415; 80053; 80061; 82746; 83036

== ENCOUNTER 2025-04-29 04:42 | Outpatient (CLI) | payer OTHER, SELFPAY ==
[2025-04-29 17:57] LABS: PSA, Screening 1.4 ng/mL (<=4.5)
[2025-05-05 16:19] LABS: Apolipoprotein B, Serum 72 mg/dL; Beta VLDL Cholesterol Not Detected mg/dL (<15); Beta VLDL Triglycerides Not Detected mg/dL (<15); Cholesterol, Total, CDC 141 mg/dL; Chylomicron Cholesterol Not Detected; Chylomicron Triglycerides Not Detected; HDL Cholesterol, CDC 39 mg/dL (>=40); LpX Not detected; Triglycerides, CDC 128 mg/dL; VLDL Triglycerides 67 mg/dL (<120)
== END 2025-04-29 04:43 | disposition home or self-care (01) ==
LOC: LBO 04:42
PROVIDERS: PCP Nurse Practitioner Adult Health; Referring Provider Nurse Practitioner Adult Health; Visit Provider Nurse Practitioner Adult Health
DX: Z12.5 Encounter for screening for malignant neoplasm of prostate (principal); Z71.89 Other specified counseling
CPT/HCPCS: 36415; 80061; 84153; 82172; 82664